=== PATIENT | male | born 1940 | race Caucasian/White ===

== ENCOUNTER → 2020-10-07 10:02 | Outpatient (BNVA) | payer OTHER, SELFPAY | PROVIDERS: Family Provider Emergency Medicine Emergency Medical Services; PCP Emergency Medicine Emergency Medical Services; Referring Provider Emergency Medicine Emergency Medical Services; Visit Provider Nurse Practitioner | DX: M79.641 Pain in right hand (principal); M79.642 Pain in left hand; R20.2 Paresthesia of skin; F17.200 Nicotine dependence, unspecified, uncomplicated | CPT/HCPCS: 99204 ==

== ENCOUNTER 2020-10-08 09:54 | Outpatient (CLI) | payer OTHER, SELFPAY ==
[2020-10-08 11:05] LABS: Folate Level 18.9 ng/mL (4.5-32.2)
[2020-10-08 11:09] LABS: C Reactive Protein 0.8 mg/L (0.0-4.9); Thyroid Stimulating Hormone 1.62 uIU/mL (0.27-4.20); Vitamin B12 593 pg/mL (232-1245)
[2020-10-08 11:13] LABS: Erythrocyte Sedimentation Rate 10 mm/hr (0-10)
[2020-10-11 23:52] LABS: Methylmalonic Acid 229 nmol/L (87-318)
== END 2020-10-08 09:55 | disposition home or self-care (01) ==
PROVIDERS: PCP Emergency Medicine Emergency Medical Services; Visit Provider Nurse Practitioner
DX: G62.9 Polyneuropathy, unspecified (principal)
CPT/HCPCS: 36415; 82607; 82746; 83921; 84260; 84443; 85651; 86140; 86431

== ENCOUNTER → 2020-11-04 12:29 | Outpatient (BNVA) | payer OTHER, SELFPAY | PROVIDERS: PCP Emergency Medicine Emergency Medical Services; Referring Provider Nurse Practitioner; Visit Provider Specialist | DX: G56.03 Carpal tunnel syndrome, bilateral upper limbs (principal); G62.89 Other specified polyneuropathies; F17.200 Nicotine dependence, unspecified, uncomplicated | CPT/HCPCS: 95910 ==

== ENCOUNTER → 2020-12-11 09:45 | Outpatient (BNVA) | payer OTHER, SELFPAY | PROVIDERS: PCP Emergency Medicine Emergency Medical Services; Referring Provider Nurse Practitioner; Visit Provider Orthopaedic Surgery | DX: G56.03 Carpal tunnel syndrome, bilateral upper limbs (principal) | CPT/HCPCS: 73130 ==

== ENCOUNTER → 2020-12-12 13:46 | Outpatient (BNVA) | payer OTHER, SELFPAY | PROVIDERS: PCP Emergency Medicine Emergency Medical Services; Visit Provider Orthopaedic Surgery | DX: Z01.812 Encounter for preprocedural laboratory examination (principal); Z20.822 Contact with and (suspected) exposure to COVID-19 | CPT/HCPCS: 87635 ==

== ENCOUNTER 2020-12-19 10:36 | Day surgery (SDC) | payer OTHER, SELFPAY ==
[2020-12-18 14:52] VITALS: BMI 24.0
[2020-12-19] VITALS (11 sets, daily range): BP systolic 90–165; BP diastolic 44–112; PULSE 59–94; RESP 15–25; TEMP 36.2–36.5; O2SAT 94–98
[2020-12-19] MEDS: sodium chloride 0.9% 1,000 ML 30 ML IV (11:49)
--- NOTE | 2020-12-19 12:49 | P.ANESASSM_ITS ---
Pre-Anesthetic Assessment Pre-Anesthetic Assessment: Height/Weight: Height 1.83 m Weight 80.286 kg Temp Pulse Resp BP Pulse Ox 97.6 F 59 L 17 159/68 95 12/19/20 11:30 12/19/20 11:30 12/19/20 11:30 12/19/20 11:30 12/19/20 11:30 Preop Diagnosis: Carpal tunnel syndrome Left wrist Proposed Procedure: Operation Date: 12/19/20 12:30 Proposed Procedures p Carpal Tunnel Release 79157 G56.00(Left) - Antony Real MD Was Beta Rodney taken within 24 hours: Yes Was Clonidine taken within 24 hours: N/A Last intake: Intake Last Liquid Date 12/18/20 Last Liquid Time 09:00 Last Solid Date 12/18/20 Last Solid Time 17:30 Social: Social History: No alcohol and No tobacco Exam: Pre-Anes Outpt Exam: alert, oriented x 3 and clear to auscultation bi laterally Airway: Submandibular: WNL Cervical ROM: WNL MP: 2 Pulmonary: Pulmonary: None reported CV/HEM: CV/HEM: HTN : : None reported Hepatic: Hepatic: None reported GI: GI: None reported Metabolic: Metabolic: Hyperlipidemia Musc/skel: Musc/skel: None reported Neuropsych: Neuropsych: None reported Anesthetic Plan: ASA status: 2 Anesthesia: Regional (specify below) Other: Marianne block Risk of > 500 ml blood loss (7ml/kg in children): No Meds/Allergies Current Medications: Current Medications Generic Name Dose Route Start Last Admin Trade Name Freq PRN Reason Stop Dose Admin Sodium Chloride 1,000 mls @ 30 ml s/hr 12/19/20 11:30 12/19/20 11:49 Sodium Chloride 0.9% IV 12/20/20 11:29 30 mls/hr .Q24H COLLIN Administration PFSH Anesthesia PFSH: Medical History Hyperlipidemia Neuropathy Social History Alcohol intake: former History of recent travel: No Data Anesthesia Cardiac Studies: No Data to Display
--- NOTE | 2020-12-19 13:35 | W.PM.OPSUD ---
Surgery/Procedure H&P Update DATE OF PROCEDURE: December 19, 2020 DATE H&P PERFORMED: 12/11/20 H&P UPDATE INFORMATION: I have reviewed H&P completed within last 30 days and I have examined patient prior to procedure PREOP DIAGNOSIS: Carpal tunnel syndrome Left wrist PLANNED PROCEDURE: Operation Date: 12/19/20 12:30 Proposed Procedures p Carpal Tunnel Release [id number] G56.00(Left) - Antony Real MD
--- NOTE | 2020-12-19 13:36 | P.OP_ITS ---
Operative Report Date of procedure: December 19, 2020 Pre-op Diagnosis: Carpal tunnel syndrome Left wrist Post-op diagnosis: same Post-op Findings: Same Procedure Done: Left carpal tunnel release Pathology: none sent Surgeon: Antony Real Anesthesia: Nerve Block ([place] block) Estimated blood loss (mL): 0 Tourniquet time (min): 20 Complications: No masses or space-occupying lesions were seen within the carpal tunnel Condition: stable Disposition: PACU Procedure: Patient was taken to the operating room and anesthesia provided by the anesthesia service. She was prepped and draped with the arm exposed. A timeout was performed. A 3 cm long incision was made in line with the fourth ray from the distal edge of the carpal tunnel extending proximally. The subcutaneous fat and palmar fascia was divided with a scalpel blade. Under loupe magnification the ulnar neurovascular bundle was identified distally. A hemostat could be passed under the transverse carpal ligament allowing the distal 25% to be divided. A slotted guide was then passed beneath the transverse carpal ligament and the middle 50% divided. Blunt scissors were then passed over the guide freeing the proximal ligament. The tourniquet was deflated. Hemostasis provided with electrocautery. Wound edges were infiltrated with 10 cc of a half percent Marcaine solution. Skin edges were reapproximated with 3-0 Prolene. Sterile dressings were applied. The patient was taken to the recovery room in stable condition
== END 2020-12-19 15:05 | disposition home or self-care (01) ==
PROVIDERS: PCP Emergency Medicine Emergency Medical Services; Visit Provider Orthopaedic Surgery
PROC: (CPT 64721; principal; 2020-12-19 12:20)
DX: R20.0 Anesthesia of skin (principal); G56.02 Carpal tunnel syndrome, left upper limb; G62.9 Polyneuropathy, unspecified; M79.642 Pain in left hand
CPT/HCPCS: 64721; 96365; J0690; J2704; J3490; J7030

== ENCOUNTER → 2020-12-26 14:50 | Outpatient (BNVA) | payer OTHER, SELFPAY | PROVIDERS: PCP Emergency Medicine Emergency Medical Services; Visit Provider Orthopaedic Surgery | DX: Z20.822 Contact with and (suspected) exposure to COVID-19 (principal); Z01.812 Encounter for preprocedural laboratory examination | CPT/HCPCS: 87635 ==

== ENCOUNTER 2021-01-02 06:27 | Day surgery (SDC) | payer OTHER, SELFPAY ==
[2021-01-01 09:04] VITALS: BMI 24.1
[2021-01-02] VITALS (7 sets, daily range): BP systolic 113–122; BP diastolic 66–82; PULSE 64–81; RESP 18–26; TEMP 36.4–36.6; O2SAT 94–99
--- NOTE | 2021-01-02 07:02 | W.PM.OPSUD ---
Surgery/Procedure H&P Update DATE OF PROCEDURE: January 02, 2021 DATE H&P PERFORMED: 12/11/20 H&P UPDATE INFORMATION: I have reviewed H&P completed within last 30 days PREOP DIAGNOSIS: Carpal tunnel syndrome right wrist PLANNED PROCEDURE: Operation Date: 01/02/21 08:10 Proposed Procedures p Carpal Tunnel Release [id number] G56.00(Right) - Antony Real MD
[2021-01-02] MEDS: sodium chloride 0.9% 1,000 ML 30 ML IV (07:17)
--- NOTE | 2021-01-02 07:27 | ANES.PREANE2 ---
Pre-Anesthetic Assessment Pre-Anesthetic Assessment: Height/Weight: Height 1.83 m Weight 80.739 kg Temp Pulse Resp BP Pulse Ox 97.9 F 81 18 116/66 94 01/02/21 06:45 01/02/21 06:45 01/02/21 06:45 01/02/21 06:45 01/02/21 06:45 Preop Diagnosis: Carpal tunnel syndrome right wrist Proposed Procedure: Operation Date: 01/02/21 08:10 Proposed Procedures p Carpal Tunnel Release [id number] G56.00(Right) - Antony Real MD Was Beta Rodney taken within 24 hours: Yes Was Clonidine taken within 24 hours: N/A Last intake: Intake Last Liquid Date 01/01/21 Last Liquid Time 21:00 Last Solid Date 01/01/21 Last Solid Time 21:00 Social: Social History: Tobacco and No alcohol Exam: Pre-Anes Outpt Exam: alert, oriented x 3 and regular rate & rhythm Airway: Submandibular: WNL Cervical ROM: WNL MP: 2 Dentition: False Pulmonary: Pulmonary: COPD CV/HEM: CV/HEM: HTN GI: GI: GERD Metabolic: Metabolic: Hyperlipidemia Neuropsych: Neuropsych: Neuropathy Anesthetic Plan: ASA status: 3 Anesthesia: MAC and Regional (specify below) (Maisha amos) Risk of > 500 ml blood loss (7ml/kg in children): No Meds/Allergies Current Medications: Current Medications Generic Name Dose Route Start Last Admin Trade Name Freq PRN Reason Stop Dose Admin Sodium Chloride 1,000 mls @ 30 ml s/hr 01/02/21 06:45 01/02/21 07:17 Sodium Chloride 0.9% IV 01/03/21 06:44 30 mls/hr .Q24H COLLIN Administration PFSH Anesthesia PFSH: Medical History Hyperlipidemia Neuropathy Social History Alcohol intake: former History of recent travel: No Data Anesthesia Cardiac Studies: No Data to Display
--- NOTE | 2021-01-02 08:28 | PM.OP ---
Operative Report Date of procedure: January 02, 2021 Pre-op Diagnosis: Carpal tunnel syndrome right wrist Post-op diagnosis: same Post-op Findings: Same Procedure Done: Right carpal tunnel Pathology: none sent Surgeon: Antony Real Anesthesia: Nerve Block (Maisha block) Tourniquet time (min): 20 Complications: None Condition: stable Disposition: PACU Procedure: Patient was taken to the operating room and anesthesia provided by the anesthesia service. She was prepped and draped with the arm exposed. A timeout was performed. A 3 cm long incision was made in line with the fourth ray from the distal edge of the carpal tunnel extending proximally. The subcutaneous fat and palmar fascia was divided with a scalpel blade. Under loupe magnification the ulnar neurovascular bundle was identified distally. A hemostat could be passed under the transverse carpal ligament allowing the distal 25% to be divided. A slotted guide was then passed beneath the transverse carpal ligament and the middle 50% divided. Blunt scissors were then passed over the guide freeing the proximal ligament. The tourniquet was deflated. Hemostasis provided with electrocautery. Wound edges were infiltrated with 10 cc of a half percent Marcaine solution. Skin edges were reapproximated with 3-0 Prolene. Sterile dressings were applied. The patient was taken to the recovery room in stable condition
--- NOTE | 2021-01-02 09:23 | P.PCN_ITS ---
PACU note PACU note: VSS, Good respiratory effort, report to DAIRY CHEMIST Post-Anesthesia Exam: awake
--- NOTE | 2021-01-02 09:23 | PM.PACU ---
PACU note PACU note: VSS, Good respiratory effort, report to ELL TUTOR Post-Anesthesia Exam: awake
--- NOTE | 2021-01-02 13:40 | ANE.PACU2 ---
Inpatient post-anesthesia follow up: Airway intact: Yes Vital signs: Temperature 97.6 F Pulse Rate 67 Respiratory Rate 18 Blood Pressure 115/82 Pulse Oximetry 98 Oxygen Delivery Me thod Room Air Oxygen Flow Rate Fraction of Inspir ed Oxygen Hydration adequate: Yes Nausea and vomiting: No Pain level: 1 Mental status: Baseline
== END 2021-01-02 10:07 | disposition home or self-care (01) ==
PROVIDERS: PCP Emergency Medicine Emergency Medical Services; Visit Provider Orthopaedic Surgery
PROC: (CPT 64721; principal; 2021-01-02 08:10)
DX: R20.0 Anesthesia of skin (principal); G56.01 Carpal tunnel syndrome, right upper limb
CPT/HCPCS: 64721; J0690; J2704; J3010; J3490; J7030

== ENCOUNTER 2022-02-13 13:42 | Inpatient (IN) | payer OTHER, SELFPAY ==
[2022-02-13] VITALS (46 sets, daily range): BP systolic 105–169; BP diastolic 54–83; PULSE 18–105; RESP 14–24; TEMP 36.5–36.6; O2SAT 94–100; BMI 23.7
--- NOTE | 2022-02-13 13:57 | ECG_ITS ---
[facility] Test Date: 2022-02-13 Pat Name: Meeta Hurst Department: Room: Gender: Male Nurse Ldr: : 1940 Requested By: Jaswant Soriano Order Number: [id number] Monique MD: Polina Oliver M.D. Measurements Intervals [place] Rate: 84 P: 86 NV: 196 QRS: -86 QRSD: 137 T: 68 QT: 389 QTc: 461 Interpretive Statements SINUS RHYTHM WITH OCCASIONAL VENTRICULAR PREMATURE COMPLEXES LEFT AXIS DEVIATION [QRS AXIS < -30] RIGHT BUNDLE BRANCH BLOCK Compared to ECG 12/25/2015 15:22:43 Ventricular premature complex(es) now present Left-axis deviation now present Sinus bradycardia no longer present Left anterior fascicular block no longer present Electronically Signed On 02-13-2022 19:03:35 PLASTER WHITTLER by Polina Oliver M.D. [id number] ciara
--- NOTE | 2022-02-13 13:57 | XR_ITS ---
WS: [id number] Portable AP upright chest, 02/13/2022 Clinical Data: cp Comparison: Portable chest, 12/25/2015 Findings: No nodules, masses or effusions are seen. The heart is normal. The pulmonary vascularity is not increased. No pneumonia or pneumothorax is seen. The aortic arch and descending thoracic aorta s how tortuosity. There are monitor leads on the chest wall. XR/XR chest 1V portable [id number] Impression: Atherosclerosis.
--- NOTE | 2022-02-13 14:01 | W.ED.CHESTPA ---
HPI - Chest Pain General: Chief Complaint: Chest Pain Stated Complaint: vtach Time Seen by Provider: 02/13/22 13:43 History of Present Illness: Patient comes in by EMS after developing chest pain which he describes as midsternal chest pressure that started about an hour prior to arrival. States it started while he was driving. No radiation. Associate with some shortness of breath. When EMS picked the patient up his EKG was concerning for a wide-complex tachycardia with a ventricular rate around 176 bpm. He was given 150 mg of amiodarone which converted him to sinus rhythm. Upon arrival here the patient is asymptomatic. He denies any history of previous dysrhythmia. Denies any cold symptoms including no fever, cough, congestion, vomiting, or diarrhea. Associated symptoms: Reports palpitations; Deny abdominal pain, dyspnea, fever(s), nausea or vomiting Review of Systems Const: Denies: fever(s) or body aches Eyes: Denies: change in vision or blurry vision ENMT: Denies: throat pain or odynophagia Card: Reports: chest pain and palpitations Resp: Denies: dyspnea or productive cough GI: Denies: abdominal pain, nausea or vomiting : Denies: flank pain or dysuria Musc: Denies: neck pain or back pain Skin/Breast: Denies: rash or pruritus Neuro: Denies: headache(s) or numbness in extremities Psych: Denies: anxiety or change in appetite Endo: Denies: polyuria or excessive sweating [facility] PFSH: Medical History Hyperlipidemia Neuropathy Social History Alcohol intake: former History of recent travel: No Physical Exam Const: COMMON NORMALS: no acute distress, patient oriented x3, healthy appearing and alert HENMT: COMMON NORMALS: normocephalic and atraumatic HEAD & SCALP: normocephalic and atraumatic Eye: COMMON NORMALS: Equal, round and reactive pupils present and EOMs intact bilaterally PUPIL: Yes Equal, round and reactive pupils present Neck/C-Spine: COMMON NORMALS: full ROM and supple Resp: COMMON NORMALS: normal respiratory effort, No retractions and No use of accessory muscles Cardio: COMMON NORMALS: regular rate and regular rhythm RATE: regular rate RHYTHM: regular rhythm GI: COMMON NORMALS: Normal to inspection, nondistended, normoactive bowel sounds present, Soft to palpation and non-tender PALPATION: Yes Soft to palpation Back/Pelvis: COMMON NORMALS: thoracic and lumbar spine normal to inspection and no thoracic nor lumbar tenderness Extremity: COMMON NORMALS: normal to inspection and full ROM Neuro: COMMON NORMALS: patient oriented x3 SENSORIUM/ORIENTATION: Yes alert Psych: COMMON NORMALS: mental status grossly normal and cooperative Skin: COMMON NORMALS: no rashes or lesions noted and no wounds GENERAL SKIN EXAM: no rashes or lesions noted Course Vital Signs: Vital signs: Vital Signs Temperature 98 F 02/13/22 13:53 Pulse Rate 72 02/13/22 14:45 Respiratory Rate 15 02/13/22 14:45 Blood Pressure 105/79 02/13/22 14:45 Pulse Oximetry 98 02/13/22 14:45 Oxygen Delivery Me thod 02/13/22 13:53 MDM - Chest Pain Medical Decision Making Patient comes in by EMS after developing chest pain which he describes as midsternal chest pressure that started about an hour prior to arrival. States it started while he was driving. No radiation. Associate with some shortness of breath. When EMS picked the patient up his EKG was concerning for a wide-complex tachycardia with a ventricular rate around 176 bpm. He was given 150 mg of amiodarone which converted him to sinus rhythm. Upon arrival here the patient is asymptomatic. He denies any history of previous dysrhythmia. Denies any cold symptoms including no fever, cough, congestion, vomiting, or diarrhea. Physical exam is unremarkable. Will check labs, EKG, continue amiodarone, and reassess. On reassessment I talked to the patient about the test results. I discussed the case with the hospitalist, and we will admit for further work-up and treatment. Lab Data 02/13/22 14:02 02/13/22 14:02 Radiology Impressions Chest X-Ray 02/13/22 13:57 Impression: Atherosclerosis. Laboratory Results WBC 4.8 10^3/uL (4.0-10.0) 02/13/22 14:02 RBC 4.86 10^6/uL (4.1-5.3) 02/13/22 14:02 Hgb 15.0 g/dL (11.7-16.6) 02/13/22 14:02 Hct 46.5 % (42.0-52.0) 02/13/22 14:02 MCV 95.7 fl (80-94) H 02/13/22 14:02 MCH 30.9 pg (28.0-34.0) 02/13/22 14:02 MCHC 32.3 g/dL (30.0-36.0) 02/13/22 14:02 RDW 13.0 % (12.1-15.1) 02/13/22 14:02 Plt Count 183 10^3/cmm (130-400) 02/13/22 14:02 MPV 10.0 fL (7.4-10.4) 02/13/22 14:02 Neut % (Auto) 47.7 % 02/13/22 14:02 Lymph % (Auto) 36.3 % 02/13/22 14:02 Tompkins % (Auto) 10.6 % 02/13/22 14:02 Eos % (Auto) 4.4 % 02/13/22 14:02 Baso % (Auto) 0.8 % 02/13/22 14:02 Neut # (Auto) 2.29 10^3/uL (1.8-7.7) 02/13/22 14:02 Lymph # (Auto) 1.7 10^3/uL (0.8-4.8) 02/13/22 14:02 Tompkins # (Auto) 0.5 10^3/uL (0.2-0.9) 02/13/22 14:02 Eos # (Auto) 0.2 10^3/uL (0.0-0.8) 02/13/22 14:02 Baso # (Auto) 0.0 10^3/uL (0.0-0.1) 02/13/22 14:02 Nucleated RBC % (auto) 0 % 02/13/22 14:02 Nucleated RBCs # 0.0 /100WBC 02/13/22 14:02 Sodium 135 mmol/L (136-145) L 02/13/22 14:02 Potassium 4.3 mmol/L (3.5-5.1) 02/13/22 14:02 Chloride 101 mmol/L (98-107) 02/13/22 14:02 Carbon Dioxide 22 mmol/L (22-29) 02/13/22 14:02 Anion Gap 16.3 (5-19) 02/13/22 14:02 BUN 12 mg/dL (8-23) 02/13/22 14:02 Creatinine 1.0 mg/dL (0.7-1.2) 02/13/22 14:02 GFR Calculation Not Reportable 02/13/22 14:02 Glucose 107 mg/dL (65-115) 02/13/22 14:02 Calculated Osmolality 280 mOsm/kg (285-295) L 02/13/22 14:02 Calcium 8.9 mg/dL (8.5-10.5) 02/13/22 14:02 Total Bilirubin 0.7 mg/dL (0.15-1.2) 02/13/22 14:02 AST 16 U/L (0-40) 02/13/22 14:02 ALT 11 U/L (0-41) 02/13/22 14:02 Alkaline Phosphatase 57 U/L (40-130) 02/13/22 14:02 Troponin T Baseline 25 ng/L (0-15) H 02/13/22 14:02 Total Protein 6.6 g/dL (6.6-8.7) 02/13/22 14:02 Albumin 4.3 g/dL (3.5-5.2) 02/13/22 14:02 Globulin 2.3 g/dL (1.3-4.6) 02/13/22 14:02 Discharge Plan Discharge Patient Disposition: Admitted As Inpatient Clinical Impression: Wide-complex tachycardia Condition: Stable Coding Level of Care Code ED Svp Digital [employer] Sales for Chg Fwd Exam Comprehensive
[2022-02-13 14:10] LABS: Basophils % 0.8 %; Eosinophils # 0.2 10^3/uL (0.0-0.8); Eosinophils % 4.4 %; Hematocrit 46.5 % (42.0-52.0); Lymphocytes # 1.7 10^3/uL (0.8-4.8); Lymphocytes % 36.3 %; Mean Corpuscular HGB Conc 32.3 g/dL (30.0-36.0); Mean Corpuscular Hemoglobin 30.9 pg (28.0-34.0); Mean Corpuscular Volume 95.7 fl (80-94); Monocytes # 0.5 10^3/uL (0.2-0.9); Monocytes % 10.6 %; Neutrophils # 2.29 10^3/uL (1.8-7.7); Neutrophils % 47.7 %; Nucleated Red Blood Cells % 0 %; Platelet Count 183 10^3/cmm (130-400); Red Blood Count 4.86 10^6/uL (4.1-5.3); White Blood Count 4.8 10^3/uL (4.0-10.0)
[2022-02-13] MEDS: sodium chloride 0.9% 1,000 ML 999 ML IV (14:20)
[2022-02-13 14:30] LABS: Alanine Aminotransferase 11 U/L (0-41); Albumin Level 4.3 g/dL (3.5-5.2); Alkaline Phosphatase 57 U/L (40-130); Anion Gap 16.3 (5-19); Aspartate Amino Transferase 16 U/L (0-40); Blood Urea Nitrogen 12 mg/dL (8-23); Calcium 8.9 mg/dL (8.5-10.5); Carbon Dioxide 22 mmol/L (22-29); Chloride 101 mmol/L (98-107); Globulin 2.3 g/dL (1.3-4.6); Glucose 107 mg/dL (65-115); Osmolality Calculated 280 mOsm/kg (285-295); Potassium 4.3 mmol/L (3.5-5.1); Sodium 135 mmol/L (136-145); Total Bilirubin 0.7 mg/dL (0.15-1.2); Total Protein 6.6 g/dL (6.6-8.7)
[2022-02-13 14:31] LABS: Troponin(5th) Baseline 25 ng/L (0-15)
--- NOTE | 2022-02-13 15:57 | ECG_ITS ---
[facility] Test Date: 2022-02-13 Pat Name: Meeta Hurst Department: Room: 106 Gender: Male Adjunct Communications Faculty Member: : 1940 Requested By: Jaswant Soriano Order Number: [id number] Monique MD: Polina Oliver M.D. Measurements Intervals [place] Rate: 75 P: 83 AK: 200 QRS: 269 QRSD: 154 T: 68 QT: 407 QTc: 455 Interpretive Statements SINUS RHYTHM RIGHT AXIS DEVIATION [QRS AXIS > 100] RIGHT BUNDLE BRANCH BLOCK [120+ ms QRS DURATION, UPRIGHT V1, 40+ ms S IN I/aVL/V4/V5/V6] Compared to ECG 02/13/2022 13:51:34 Right-axis deviation now present Ventricular premature complex(es) no longer present Left-axis deviation no longer present Electronically Signed On 02-13-2022 20:29:28 PIPE FINISHER by Polina Oliver M.D. [id number]
[2022-02-13] MEDS: enoxaparin 80 mg/0.8 mL Syringe SUBCUT (17:30)
--- NOTE | 2022-02-13 17:33 | P.HP_ITS ---
Providers/Chief Complaint Admitting Physician: Nikkie Castillo MD Primary Care Provider: Mendoza Forman DO Chief Complaint: vtach History of Present Illness Meeta Hurst is a 81 year old male with a past medical history of dyslipidemia. He was driving today when he suddenly started to feel a sudden pressure in the middle of his chest as if a brick is laying on his chest. Also had some palpitations. Initially he kept driving, however the sensation record after 10 to 15 minutes [facility] As [facility] as he entered the clinic he states that he passed out and fell to the floor. EMS was called in, he was noted to be in wide-complex tachycardia at 176 bpm. He did not receive defibrillation or cardioversion. He he was given amiodarone and thereafter turned into sinus rhythm and was brought into the emergency room. Here he is running on an amiodarone infusion at the time of my assessment. He is currently chest pain-free. States that he has had similar episodes on and off over the last 6 months, however he had continued his activity and the symptoms stopped. He has not noticed any correlation with exertion or rest. Denies any recent change in his medications. He states that he used to be hypertensive, however was then taken off his blood pressure medications as blood pressure had been good for a while. He does not have any past history of CAD. No history of valvular abnormalities. He does not drink excessive amount of caffeine and energy drinks. Per his family was at bedside they state that he was short of breath during this episode he was having a tough time breathing, he did not have any associated diaphoresis. Pain was not radiating anywhere. Review of Systems General: Reports: 10 or more systems reviewed and unremarkable except in HPI and below Const: Denies: fever(s), chills or body aches Eyes: Denies: change in vision, blurry vision or photophobia ENMT: Reports: hoarseness; Denies: throat pain, enlarged tonsils, odynophagia or nasal congestion Card: Denies: chest pain, palpitations, irregular heart rhythm, edema, swelling of feet/ankles, lightheadedness, pre-syncope, dyspnea on exertion or orthopnea Resp: Denies: dyspnea, productive cough, non-productive cough, wheezing, s tridor, pain on inspiration, change in phlegm color, hemoptysis or chest congestion GI: Denies: abdominal pain, nausea, vomiting, hematemesis, coffee ground emesis, dysphagia, heartburn, diarrhea, constipation, GI cramping, change in stool character, hematochezia or melena : Denies: flank pain, dysuria, urinary frequency, urinary urgency, urinary hesitancy or hematuria Musc: Denies: neck pain, back pain, extremity pain, joint swelling, joint warmth or deformity Neuro: Denies: headache(s), numbness in extremities, weakness in extremities, sensory changes, difficulty walking, frequent falls, dizziness, vertigo, behavioral changes, Slurred speech present or seizure-like activity Psych: Denies: anxiety, depression, suicidal ideation or homicidal ideation Endo: Denies: polyuria, polydipsia, tired all the time, cold intolerance or hot flashes Travis/Lymph: Denies: easy bruising or easy bleeding Medications/Allergies Home Medications Medication Instructions Recorded Confirmed Last Taken Type aspirin 81 mg tablet,delayed 81 mg PO DAILY 10/07/20 02/13/22 02/13/22 History release cholecalciferol (vitamin D3) 25 25 mcg PO DAILY 10/07/20 02/13/22 02/13/22 History mcg (1,000 unit) capsule famotidine 20 mg tablet 20 mg PO BID 10/07/20 02/13/22 02/13/22 History simvastatin 80 mg tablet 80 mg PO QPM 10/07/20 02/13/22 02/12/22 History trazodone 50 mg tablet 25 mg PO BEDTIME 10/07/20 02/13/22 02/12/22 History Allergies Allergy/AdvReac Type Severity Reaction Status Date / Time No Known Allergies Allergy Verified 02/13/22 14:16 PFSH Acute PFSH: Medical History Hyperlipidemia Neuropathy Social History Alcohol intake: former History of recent travel: No Vitals/I&O/Wt Last Vital Signs Temp 98 F 02/13/22 13:53 Pulse 79 02/13/22 16:57 Resp 22 H 02/13/22 16:10 BP 122/83 02/13/22 17:05 Pulse Ox 98 02/13/22 17:05 O2 Del Method 02/13/22 16:57 02/13/22 02/13/22 02/13/22 06:59 14:59 22:59 Intake Total 1000 / 1000 Balance 1000 / 1000 Weight last 48 hrs Weight 79.379 kg Physical Exam Narrative: General: No acute distress, AO x3 HEENT: PERRLA, pupils bilaterally equal and reactive, pallors not present Chest: Normal vesicular breath sounds, no added sounds, equal good air entry bilaterally CVS: S1-S2 regular, no murmurs, no tachycardia, no gallops, no rubs Abdomen: Soft, nontender, no organomegaly, bowel sounds present Neuro: No focal deficits, no facial deformity, AO x3, power 5/5 in all limbs Extremities: No clubbing edema or cyanosis Data 02/13/22 14:02 02/13/22 14:02 A&P Assessment and plan (1) Wide-complex tachycardia: (2) Chest pain: Plan Patient presenting today with chest pain, palpitations, found to have wide- complex tachycardia by EMS. Received amiodarone following which he converted into sinus rhythm and is continued on a drip thereafter. Has some on and off episodes of chest pain also going back 6 months, concern for anginal type chest pain. Baseline rhythm currently is sinus with right bundle branch block. Baseline troponin is slightly elevated at 25, pending 2-hour and 6-hour trend. Due to concern for possible NSTEMI we will go ahead and administer full dose Lovenox x1, aspirin 325 mg p.o. once. Start aspirin 81 mg p.o. daily, atorvastatin 40 mg p.o. daily. Cardiology consult for new onset wide complex arrhythmia echocardiography ordered Attestations Medical Necessity Statement*: Anticipate greater than 2 midnight admission for above care Coding Level of Care Code Acute Gas Distribution Plant Operator for [facility] Fwd Diagnoses Wide-complex tachycardia R00.0 Chest pain R07.9
[2022-02-13] MEDS: aspirin 81 mg Chew Tablet 324 MG PO (18:06)
[2022-02-13] MEDS: famotidine 20 mg Tablet PO (18:08)
--- NOTE | 2022-02-13 18:27 | P.CONIM_ITS ---
Providers/Reason For Consult Consulting Physician/Specialty*: Vanessa Mc MD/cardiology Reason for Consult*: Patient with syncope/wide-complex tachycardia Requesting Physician: Dr. Castillo Attending Physician: Nikkie Castillo MD Primary Care Provider: Mendoza Forman DO History of Present Illness History of Present Illness Meeta Hurst is a 81 year old male with a history of dyslipidemia, he is presenting with an episode of near syncope. He was found to have wide-complex tachycardia on the monitor. Cardiology consult is requested for further cardiac evaluation recommendations. This patient is known to have dyslipidemia and is taking a statin drug. Apparently he was driving home after buying a sandwich for lunch. On the way he started having tight feeling in the chest. He pulled over and waited for a while. The symptoms might have lasted for few seconds and then gradually subsided. So he started driving again. Few minutes later, he had another episode of chest tightness. At this time, he was near to the [facility] in [facility]. So he stopped by the clinic. As he was getting into the clinic he collapsed to the floor. He never lost consciousness. He was found to have wide-complex tachycardia by EMS. He was started on IV amiodarone. By the time he came to the emergency room, the pain was gone. He was back into sinus rhythm. Currently he has no chest pain. The whole episode of chest pain might have lasted for an hour or so. According the patient, he has been having similar symptoms off and on for the last couple of years. He might have had 4 or 5 episodes of similar pains within the last 1 year. No definite precipitating factors. Usually the symptoms last for few seconds to few minutes and usually goes away by taking a deep breath. He never had the symptoms lasting that long. He never had any syncopal or near syncopal episodes. He has no history for any hypertension, diabetes, CVA or peripheral artery disease. He smokes a pack a day for the last more than 70 years. No alcohol abuse or any other substance abuse. No significant family history for atherosclerotic heart diseas. Review of Systems Narrative: CONSTITUTIONAL: No fever or chills. EYES: No blurring of vision or other visual disturbances lately. ENT: No hoarseness of voice, auditory disturbances or sore throat. CARDIOVASCULAR: As mentioned above. RESPIRATORY: No significant cough. GASTROINTESTINAL: No hematemesis or melena. GENITOURINARY: No dysuria or hematuria. INTEGUMENTARY: No skin rashes or history of skin cancer. NEURO: No transient ischemic attacks or amaurosis. PSYCHIATRIC: No history of psychosis or major depression. HEMATOLOGIC: No bleeding disorders or significant anemia. ENDOCRINE: No history of polyuria or polydipsia. MUSCULOSKELETAL: No recent joint pain or swelling. ALLERGY/IMMUNOLOGY: As mentioned above. Medications/Allergies Home Medications Medication Instructions Recorded Confirmed Last Taken Type aspirin 81 mg tablet,delayed 81 mg PO DAILY 10/07/20 02/13/22 02/13/22 History release cholecalciferol (vitamin D3) 25 25 mcg PO DAILY 10/07/20 02/13/22 02/13/22 History mcg (1,000 unit) capsule famotidine 20 mg tablet 20 mg PO BID 10/07/20 02/13/22 02/13/22 History simvastatin 80 mg tablet 80 mg PO QPM 10/07/20 02/13/22 02/12/22 History trazodone 50 mg tablet 25 mg PO BEDTIME 10/07/20 02/13/22 02/12/22 History Allergies Allergy/AdvReac Type Severity Reaction Status Date / Time No Known Allergies Allergy Verified 02/13/22 14:16 Current Medications Generic Name Dose Route Start Last Admin Trade Name Dionicioq PRN Reason Stop Dose Admin Famotidine 20 mg 02/13/22 18:00 02/13/22 18:08 Famotidine 20 Mg Tablet PO 20 mg BID COLLIN Administration Amiodarone HCl 900 mg/ 518 mls @ 17.267 mls/hr 02/13/22 14:00 02/13/22 14:18 Dextrose/ IV Miscellaneous IV 0.5 mg/min Supplies CONT COLLIN 17.27 mls/hr Administration 0.5 MG/MIN PFSH Acute PFSH: Medical History (Updated 02/13/22 @ 19:36 by Jos Mc MD) Hyperlipidemia Neuropathy Social History Alcohol intake: former History of recent travel: No Vitals/I&O/Wt Last Vital Signs Temp 98 F 02/13/22 13:53 Pulse 78 02/13/22 17:25 Resp 17 02/13/22 17:25 BP 159/79 02/13/22 17:55 Pulse Ox 98 02/13/22 17:55 O2 Del Method 02/13/22 17:35 02/13/22 02/13/22 02/13/22 06:59 14:59 22:59 Intake Total 1000 / 1000 Balance 1000 / 1000 Weight last 48 hrs Weight 175 lb Weight 175 lb Physical Exam Narrative: GENERAL: The patient is alert and oriented times three. Not in any acute distress. HEENT: No significant pallor, icterus or lymphadenopathy.Oral cavity: There are no mucous membrane lesions. NECK: Trachea appears to be central. No masses noted. No JVD or thyromegaly appreciated. RESPIRATORY: Chest is symmetrical. No intercostals muscle retraction or any accessory muscle activation. There is no chest wall tenderness. Breath sounds are heard bilaterally. No rales or rhonchi heard. No evidence of any consolidation. BREASTS: Deferred. HEART: The heart sounds are normal. No S3 or S4. Short systolic murmur in the left sternal border.. No pericardial rub ABDOMEN: No vessel pulsations or distention. No tenderness. No organomegaly appreciated. Bowel sounds are normally heard. : Deferred. RECTAL: Deferred. LYMPHATIC: No lymphadenopathy noted in the neck. EXTREMITIES: No edema or cyanosis. No clubbing. Peripheral pulses are palpable but somewhat weak. MUSCULOSKELETAL: No acute joint deformities or swelling SKIN: There are no significant rashes or ecchymosis NEUROPSYCHIATRIC: The patient is alert and oriented x3. Appears to be in a good mood. No tremors or rigidity noted. Data 02/13/22 14:02 02/13/22 14:02 Micro: Laboratory Last Values WBC 4.8 10^3/uL (4.0-10.0) 02/13/22 14:02 RBC 4.86 10^6/uL (4.1-5.3) 02/13/22 14:02 Hgb 15.0 g/dL (11.7-16.6) 02/13/22 14:02 Hct 46.5 % (42.0-52.0) 02/13/22 14:02 MCV 95.7 fl (80-94) H 02/13/22 14:02 MCH 30.9 pg (28.0-34.0) 02/13/22 14:02 MCHC 32.3 g/dL (30.0-36.0) 02/13/22 14:02 RDW 13.0 % (12.1-15.1) 02/13/22 14:02 Plt Count 183 10^3/cmm (130-400) 02/13/22 14:02 MPV 10.0 fL (7.4-10.4) 02/13/22 14:02 Neut % (Auto) 47.7 % 02/13/22 14:02 Lymph % (Auto) 36.3 % 02/13/22 14:02 [place] % (Auto) 10.6 % 02/13/22 14:02 Eos % (Auto) 4.4 % 02/13/22 14:02 Baso % (Auto) 0.8 % 02/13/22 14:02 Neut # (Auto) 2.29 10^3/uL (1.8-7.7) 02/13/22 14:02 Lymph # (Auto) 1.7 10^3/uL (0.8-4.8) 02/13/22 14:02 [place] # (Auto) 0.5 10^3/uL (0.2-0.9) 02/13/22 14:02 Eos # (Auto) 0.2 10^3/uL (0.0-0.8) 02/13/22 14:02 Baso # (Auto) 0.0 10^3/uL (0.0-0.1) 02/13/22 14:02 Nucleated RBC % (auto) 0 % 02/13/22 14:02 Nucleated RBCs # 0.0 /100WBC 02/13/22 14:02 Sodium 135 mmol/L (136-145) L 02/13/22 14:02 Potassium 4.3 mmol/L (3.5-5.1) 02/13/22 14:02 Chloride 101 mmol/L (98-107) 02/13/22 14:02 Carbon Dioxide 22 mmol/L (22-29) 02/13/22 14:02 Anion Gap 16.3 (5-19) 02/13/22 14:02 BUN 12 mg/dL (8-23) 02/13/22 14:02 Creatinine 1.0 mg/dL (0.7-1.2) 02/13/22 14:02 GFR Calculation Not Reportable 02/13/22 14:02 Glucose 107 mg/dL (65-115) 02/13/22 14:02 Calculated Osmolality 280 mOsm/kg (285-295) L 02/13/22 14:02 Calcium 8.9 mg/dL (8.5-10.5) 02/13/22 14:02 Total Bilirubin 0.7 mg/dL (0.15-1.2) 02/13/22 14:02 AST 16 U/L (0-40) 02/13/22 14:02 ALT 11 U/L (0-41) 02/13/22 14:02 Alkaline Phosphatase 57 U/L (40-130) 02/13/22 14:02 Troponin T Baseline 25 ng/L (0-15) H 02/13/22 14:02 Total Protein 6.6 g/dL (6.6-8.7) 02/13/22 14:02 Albumin 4.3 g/dL (3.5-5.2) 02/13/22 14:02 Globulin 2.3 g/dL (1.3-4.6) 02/13/22 14:02 EKG 1: My Interpretation: Normal sinus rhythm with right bundle branch block pattern. Some nonspecific T wave changes EKG 2: My Interpretation: Wide-complex tachycardia with a right bundle branch block morphology. Possible SVT. [place] similar to the axis with normal sinus rhythm A&P Assessment and plan (1) Wide-complex tachycardia: The rhythm appears to be in SVT. (2) Chest pain: Patient chest pain is somewhat vague. It is possible that the pain is related to the arrhythmia. Possibility of him having underlying coronary ischemia causing the symptom also is a consideration. This needs to be further evaluated. An echocardiogram would be helpful to evaluate LV function and rule out any other pathology. (3) Elevated blood pressure reading: Patient currently has stage II hypertension. This need to be treated. I may start him on metoprolol 25 mg p.o. twice daily. (4) Elevated troponin: This could be related to a type II OR. Serial enzymes are pending. (5) Near syncope: Most likely from the tachyarrhythmia. (6) Hyperlipidemia: Patient has longstanding history of dyslipidemia. May continue on the current medications. Plan The other problems are History of GERD Neuropathy We will review the echocardiogram Start him on metoprolol 25 mg p.o. twice daily. Need to be closely monitored on telemetry. Serial cardiac enzymes and EKGs We will keep him n.p.o. after midnight. Based on the clinical progress and the results of the above, further recommendations will be made. Thank you for the opportunity to evaluate this patient and make these recommendations Coding Level of Care Code Acute Customer Account Technician for Chg Fwd History Expanded Problem Focused Exam Detailed Diagnoses Wide-complex tachycardia R00.0 Chest pain R07.9 Elevated blood pressure reading R03.0 Elevated troponin R77.8 Near syncope R55 Hyperlipidemia E78.5
[2022-02-13 20:16] LABS: Troponin 5 2HR 47.27 ng/L (0-15)
[2022-02-13] MEDS: nitroglycerin 1 gm/inch oint Pkt 0.5 INCH TOPICAL (20:18)
[2022-02-13 20:43] LABS: Troponin 5 2HR Delta 22.27 ABS# (0-10)
[2022-02-13 21:04] LABS: Troponin 5 6HR 44.37 ng/L (0-15)
[2022-02-13 21:11] LABS: Thyroid Stimulating Hormone 1.17 uIU/mL (0.27-4.20)
[2022-02-13] MEDS: trazodone 50 mg Tablet 25 MG PO (21:18)
[2022-02-13] MEDS: clopidogrel 300 mg Tablet PO (21:18)
[2022-02-13] MEDS: atorvastatin 40 mg Tablet PO (21:18)
[2022-02-13] MEDS: metoprolol tartrate 25 mg Tablet 12.5 MG PO (21:18)
--- NOTE | 2022-02-13 22:02 | ECG_ITS ---
[facility] Test Date: 2022-02-13 Pat Name: Meeta Hurst Department: Room: 106 Gender: Male Event Crew Technician: : 1940 Requested By: Jaswant Soriano Order Number: [id number] Monique MD: Jos Mc M.D. Measurements Intervals [place] Rate: 60 P: 79 WI: 204 QRS: -81 QRSD: 144 T: 46 QT: 429 QTc: 430 Interpretive Statements SINUS RHYTHM LEFT AXIS DEVIATION [QRS AXIS < -30] RIGHT BUNDLE BRANCH BLOCK [120+ ms QRS DURATION, UPRIGHT V1, 40+ ms S IN I/aVL/V4/V5/V6] Compared to ECG 02/13/2022 16:38:14 Left-axis deviation now present Right-axis deviation no longer present Electronically Signed On 02-14-2022 15:23:51 GEOSPATIAL IMAGERY INTELLIGENCE ANALYST by Jos Mc M.D. [id number]
[2022-02-13 22:19] LABS: Troponin 5 6HR Delta 19.37 ng/L (0-12)
[2022-02-14] VITALS (57 sets, daily range): BP systolic 95–157; BP diastolic 57–83; PULSE 51–69; RESP 13–28; TEMP 36.3–36.9; O2SAT 94–98
--- NOTE | 2022-02-14 01:48 | ECG_ITS ---
[facility] Test Date: 2022-02-14 Pat Name: Meeta Hurst Department: Room: 106 Gender: Male Imaging Analyst: : 1940 Requested By: Sadi Smith Order Number: [id number] Monique MD: Jos Mc M.D. Measurements Intervals [place] Rate: 54 P: 82 GA: 205 QRS: -83 QRSD: 149 T: 30 QT: 492 QTc: 470 Interpretive Statements SINUS BRADYCARDIA RIGHT BUNDLE BRANCH BLOCK [120+ ms QRS DURATION, UPRIGHT V1, 40+ ms S IN I/aVL/V4/V5/V6] LEFT ANTERIOR FASCICULAR BLOCK [QRS AXIS <= -45, QR IN I, RS IN II] Compared to ECG 02/13/2022 22:02:07 Left anterior fascicular block now present Sinus rhythm no longer present Left-axis deviation no longer present Electronically Signed On 02-14-2022 15:18:30 SUPERVISOR FLOOR ASSEMBLY by Jos Mc M.D. [id number]
--- NOTE | 2022-02-14 01:51 | PC.NURSE ---
Contacted hospitalist on duty regarding patient's HR of 55. Order received for stat MG level BMP, trop. Amiodarone infusion turned off.
[2022-02-14 02:34] LABS: Eosinophils # 0.3 10^3/uL (0.0-0.8); Eosinophils % 6.4 %; Hematocrit 41.1 % (42.0-52.0); Hemoglobin 13.5 g/dL (11.7-16.6); Lymphocytes # 1.3 10^3/uL (0.8-4.8); Lymphocytes % 32.5 %; Mean Corpuscular HGB Conc 32.8 g/dL (30.0-36.0); Mean Corpuscular Hemoglobin 31.6 pg (28.0-34.0); Mean Corpuscular Volume 96.3 fl (80-94); Monocytes # 0.5 10^3/uL (0.2-0.9); Monocytes % 12.8 %; Neutrophils # 1.91 10^3/uL (1.8-7.7); Neutrophils % 47.1 %; Nucleated Red Blood Cells % 0 %; Platelet Count 166 10^3/cmm (130-400); Red Blood Count 4.27 10^6/uL (4.1-5.3); White Blood Count 4.1 10^3/uL (4.0-10.0)
[2022-02-14] MEDS: nitroglycerin 1 gm/inch oint Pkt 0.5 INCH TOPICAL ×2 (02:40→09:09)
[2022-02-14 02:56] LABS: Troponin T (5th) Once 36 ng/L (0-15)
[2022-02-14 02:59] LABS: Alanine Aminotransferase 9 U/L (0-41); Albumin Level 3.6 g/dL (3.5-5.2); Alkaline Phosphatase 48 U/L (40-130); Anion Gap 13.3 (5-19); Aspartate Amino Transferase 14 U/L (0-40); Blood Urea Nitrogen 12 mg/dL (8-23); Calcium 8.4 mg/dL (8.5-10.5); Carbon Dioxide 21 mmol/L (22-29); Chloride 107 mmol/L (98-107); Chol HDL Ratio 3.54 mg/dL (1.0-5.00); Cholesterol 131 mg/dL (0-200); Globulin 1.9 g/dL (1.3-4.6); Glucose 102 mg/dL (65-115); HDL Cholesterol 37 mg/dL (60-100); LDL Cholesterol Calculated 72 mg/dL (50-129); LDL HDL Ratio 1.95 RATIO (0.00-3.22); Magnesium 2.1 mg/dL (1.7-2.3); Osmolality Calculated 284 mOsm/kg (285-295); Potassium 4.3 mmol/L (3.5-5.1); Sodium 137 mmol/L (136-145); Total Bilirubin 0.5 mg/dL (0.15-1.2); Total Protein 5.5 g/dL (6.6-8.7); Triglycerides 112 mg/dL (0-150)
[2022-02-14 03:04] LABS: Estmated Average Glucose 117; Hemoglobin A1C 5.7 % (4.0-6.0)
--- NOTE | 2022-02-14 06:00 | USCV_ITS ---
Meeta Hurst Age: 81 Gender: M : 1940 Exam Date: 02/14/2022 09:12 Ordering Phys: Nikkie Castillo MD Technologist: ANNA [place] [facility] [place]: NSTEMI BP: 115 / 60 HR: Rhythm: Other Technical Quality: Technically difficult study MEASUREMENTS (Male / Female) Normal Values 2D ECHO LV Diastolic Diameter PLAX 3.9 cm 4.2 - 5.9 / 3.9 - 5.3 cm LV Systolic Diameter PLAX 2.7 cm IVS Diastolic Thickness 0.7 cm 0.6 - 1.0 / 0.6 - 0.9 cm IVS Systolic Thickness 0.9 cm LVPW Diastolic Thickness 0.8 cm 0.6 - 1.0 / 0.6 - 0.9 cm LVPW Systolic Thickness 1.2 cm LVOT Diameter 2.1 cm LV Ejection Fraction 2D Teich 56.8 % LV Ejection Fraction MOD 2C 60.9 % LV Ejection Fraction 2C AL 61.7 % LA Diameter 2.4 cm IVC Diameter 1.2 cm M-MODE Aortic Annulus Diameter 2.9 cm LA Ao Ratio MM 1.0 MV E Point Septal Separation 0.4 cm DOPPLER MV Area PHT 3.7 cm squared Mitral E to A Ratio 0.7 MV E' Velocity 34.5 cm/s Mitral E to MV E' Ratio 8.4 Mitral E to LV E' Lateral Ratio 7.7 Mitral E to LV E' Septal Ratio 9.1 FINDINGS Left Ventricle Normal left ventricular size and systolic function, EF 57 %. Grade I/IV diastolic dysfunction (abnormal relaxation filling pattern), normal to mildly elevated filling pressures. Right Ventricle Normal right ventricular size and systolic function. Right Atrium The right atrium is normal in size. Left Atrium The left atrium is normal in size. Mitral Valve Minimally thickened Aortic Valve Thickened aortic valve. Tricuspid Valve No gross abnormalities noted Pulmonic Valve Pulmonic valve not well visualized. Pericardium Normal pericardium without effusion. Aorta Normal aortic annulus size. IVC Normal inferior vena cava. CONCLUSIONS Normal left ventricular size and systolic function, EF 57 %. Grade I/IV diastolic dysfunction (abnormal relaxation filling pattern), normal to mildly elevated filling pressures. Minimally thickened aortic and mitral valves. There is no pericardial effusion. There are no intracardiac masses. No similar previous studies are available for comparison Dr Jos Mc MD FACC (Electronically Signed) Final Date: 14 February 2022 14:12 S
[2022-02-14] MEDS: metoprolol tartrate 25 mg Tablet 12.5 MG PO ×2 (09:09→20:17)
[2022-02-14] MEDS: aspirin 81 mg Chew Tablet PO (09:10)
[2022-02-14] MEDS: famotidine 20 mg Tablet PO (09:10)
--- NOTE | 2022-02-14 09:19 | PM.PN ---
Subjective Subjective: Patient is feeling okay. He has a troponin T at 2 hours and 6-hour interval. Was found to have a significant delta at 2 hours. Currently he denies any chest pain or shortness of breath. Telemetry shows sinus rhythm. Because of the relatively slow heart rate and blood pressure, the amiodarone was discontinued. The dose of the metoprolol also was cut down to 12.5 mg p.o. twice daily. Denies any fever or chills. No cough. Medications: Medication Review Details: Current Medications Acetaminophen (Acetaminophen 325 Mg Tablet) 650 mg PO Q6H PRN PRN Reason: Mild/Mod Pain Or Temp >/= 101 Aspirin (Aspirin 81 Mg Chew Tablet) 81 mg PO DAILY REPLACED BY [facility] Last Admin: 02/14/22 09:10 Dose: 81 mg Atorvastatin Calcium (Atorvastatin 40 Mg Tablet) 40 mg PO BEDTIME REPLACED BY [facility] Last Admin: 02/13/22 21:18 Dose: 40 mg Enoxaparin Sodium (Enoxaparin 80 Mg/0.8 Ml Syringe) 80 mg SUBCUT Q12H REPLACED BY [facility] Last Admin: 02/14/22 09:11 Dose: Not Given Famotidine (Famotidine 20 Mg Tablet) 20 mg PO BID REPLACED BY [facility] Last Admin: 02/14/22 09:10 Dose: 20 mg Amiodarone HCl 900 mg/Dextrose/ IV Miscellaneous Supplies 518 mls @ 17.267 mls/hr IV CONT REPLACED BY [facility] Last Infusion: 02/14/22 02:00 Dose: 0 mg/min, 0 mls/hr Metoprolol Tartrate (Metoprolol Tartrate 25 Mg Tablet) 12.5 mg PO BID@0900,2100 REPLACED BY [facility] Last Admin: 02/14/22 09:09 Dose: 12.5 mg Morphine Sulfate (Morphine 4 Mg/Ml Sdv 1 Ml) 2 mg IVP Q4H PRN PRN Reason: SEVERE PAIN Naloxone HCl (Naloxone 0.4 Mg/Ml Sdv) 0.1 mg IVP Q2M PRN PRN Reason: OPIATERV Nitroglycerin (Nitroglycerin 1 Gm/Inch Oint Pkt) 0.5 inch TOPICAL Q6H REPLACED BY [facility] Last Admin: 02/14/22 09:09 Dose: 0.5 inch Ondansetron HCl (Ondansetron 2 Mg/Ml Sdv 2 Ml) 4 mg IVP Q8H PRN PRN Reason: vomiting, or N/V if npo Trazodone HCl (Trazodone 50 Mg Tablet) 25 mg PO BEDTIME COLLIN Last Admin: 02/13/22 21:18 Dose: 25 mg Vitals/I&O/Wt Last Vital Signs Temp 97.8 F 02/14/22 07:50 Pulse 61 02/14/22 07:50 Resp 15 02/14/22 07:50 BP 115/60 02/14/22 07:50 Pulse Ox 94 02/14/22 07:50 O2 Del Method 02/14/22 04:57 02/13/22 02/14/22 02/14/22 22:59 06:59 14:59 Intake Total 1120 / 1120 202.059 / 1322.059 Balance 1120 / 1120 202.059 / 1322.059 Weight last 48 hrs Weight 175 lb Weight 175 lb Physical Exam Narrative: GENERAL: The patient is alert and oriented times three. Not in any acute distress. HEENT: No significant pallor, icterus or lymphadenopathy.Oral cavity: There are no mucous membrane lesions. NECK: Trachea appears to be central. No masses noted. No JVD or thyromegaly appreciated. RESPIRATORY: Chest is symmetrical. No intercostals muscle retraction or any accessory muscle activation. There is no chest wall tenderness. Breath sounds are heard bilaterally. No rales or rhonchi heard. No evidence of any consolidation. BREASTS: Deferred. HEART: The heart sounds are normal. No S3 or S4. Short systolic murmur in the left sternal border.. No pericardial rub ABDOMEN: No vessel pulsations or distention. No tenderness. No organomegaly appreciated. Bowel sounds are normally heard. : Deferred. RECTAL: Deferred. LYMPHATIC: No lymphadenopathy noted in the neck. EXTREMITIES: No edema or cyanosis. No clubbing. Peripheral pulses are palpable but somewhat weak. MUSCULOSKELETAL: No acute joint deformities or swelling SKIN: There are no significant rashes or ecchymosis NEUROPSYCHIATRIC: The patient is alert and oriented x3. Appears to be in a good mood. No tremors or rigidity noted. Data 02/14/22 02:25 02/14/22 02:25 Other Labs: Laboratory Last Values WBC 4.1 10^3/uL (4.0-10.0) 02/14/22 02:25 RBC 4.27 10^6/uL (4.1-5.3) 02/14/22 02:25 Hgb 13.5 g/dL (11.7-16.6) 02/14/22 02:25 Hct 41.1 % (42.0-52.0) L 02/14/22 02:25 MCV 96.3 fl (80-94) H 02/14/22 02:25 MCH 31.6 pg (28.0-34.0) 02/14/22 02:25 MCHC 32.8 g/dL (30.0-36.0) 02/14/22 02:25 RDW 13.0 % (12.1-15.1) 02/14/22 02:25 Plt Count 166 10^3/cmm (130-400) 02/14/22 02:25 MPV 10.0 fL (7.4-10.4) 02/14/22 02:25 Neut % (Auto) 47.1 % 02/14/22 02:25 Lymph % (Auto) 32.5 % 02/14/22 02:25 [place] % (Auto) 12.8 % 02/14/22 02:25 Eos % (Auto) 6.4 % 02/14/22 02:25 Baso % (Auto) 1.0 % 02/14/22 02:25 Neut # (Auto) 1.91 10^3/uL (1.8-7.7) 02/14/22 02:25 Lymph # (Auto) 1.3 10^3/uL (0.8-4.8) 02/14/22 02:25 [place] # (Auto) 0.5 10^3/uL (0.2-0.9) 02/14/22 02:25 Eos # (Auto) 0.3 10^3/uL (0.0-0.8) 02/14/22 02:25 Baso # (Auto) 0.0 10^3/uL (0.0-0.1) 02/14/22 02:25 Nucleated RBC % (auto) 0 % 02/14/22 02:25 Nucleated RBCs # 0.0 /100WBC 02/14/22 02:25 Sodium 137 mmol/L (136-145) 02/14/22 02:25 Potassium 4.3 mmol/L (3.5-5.1) 02/14/22 02:25 Chloride 107 mmol/L (98-107) 02/14/22 02:25 Carbon Dioxide 21 mmol/L (22-29) L 02/14/22 02:25 Anion Gap 13.3 (5-19) 02/14/22 02:25 BUN 12 mg/dL (8-23) 02/14/22 02:25 Creatinine 1.0 mg/dL (0.7-1.2) 02/14/22 02:25 GFR Calculation Not Reportable 02/14/22 02:25 Glucose 102 mg/dL (65-115) 02/14/22 02:25 Estimat Average Glucose 117 02/14/22 02:25 Hemoglobin A1c 5.7 % (4.0-6.0) 02/14/22 02:25 Calculated Osmolality 284 mOsm/kg (285-295) L 02/14/22 02:25 Calcium 8.4 mg/dL (8.5-10.5) L 02/14/22 02:25 Magnesium 2.1 mg/dL (1.7-2.3) 02/14/22 02:25 Total Bilirubin 0.5 mg/dL (0.15-1.2) 02/14/22 02:25 AST 14 U/L (0-40) 02/14/22 02:25 ALT 9 U/L (0-41) 02/14/22 02:25 Alkaline Phosphatase 48 U/L (40-130) 02/14/22 02:25 Troponin T Gen 5 ng/L 36 ng/L (0-15) H 02/14/22 02:25 Troponin T Baseline 25 ng/L (0-15) H 02/13/22 14:02 Troponin T 120 Minute 47.27 ng/L (0-15) H 02/13/22 18:40 Delta Troponin T 22.27 ABS# (0-10) H* 02/13/22 18:40 Troponin T Hi Sens 6Hr 44.37 ng/L (0-15) H 02/13/22 20:22 Troponin T Hi Sens 6Hr Delta 19.37 ng/L (0-12) H* 02/13/22 20:22 Total Protein 5.5 g/dL (6.6-8.7) L 02/14/22 02:25 Albumin 3.6 g/dL (3.5-5.2) 02/14/22 02:25 Globulin 1.9 g/dL (1.3-4.6) 02/14/22 02:25 Triglycerides 112 mg/dL (0-150) 02/14/22 02:25 Triglycerides Cancelled 02/14/22 02:25 Cholesterol 131 mg/dL (0-200) 02/14/22 02:25 Cholesterol Cancelled 02/14/22 02:25 LDL Cholesterol, Calc 72 mg/dL (50-129) 02/14/22 02:25 LDL Cholesterol, Calc Cancelled 02/14/22 02:25 HDL Cholesterol 37 mg/dL (60-100) L 02/14/22 02:25 HDL Cholesterol Cancelled 02/14/22 02:25 LDL/HDL Ratio 1.95 RATIO (0.00-3.22) 02/14/22 02:25 LDL/HDL Ratio Cancelled 02/14/22 02:25 Cholesterol/HDL Ratio 3.54 mg/dL (1.0-5.00) 02/14/22 02:25 Cholesterol/HDL Ratio Cancelled 02/14/22 02:25 TSH 1.17 uIU/mL (0.27-4.20) 02/13/22 20:22 Echo: My impression: The echocardiogram revealed normal LV size ejection fraction. Segmental wall motion analysis revealing no gross wall motion normalities. A&P Assessment and plan (1) Wide-complex tachycardia: The rhythm appears to be in SVT. He has not had any recurrence. May continue on the current medications. (2) Chest pain: Could related to underlying coronary ischemia. EKG from today showed a sinus bradycardia with right bundle branch block. Diffuse nonspecific T wave changes. Left anterior fascicular block. According the patient, for the last month, he been having easy fatigability and tiredness. Also has been having episodes of chest tightness as mentioned above. Possibility of him having underlying coronary artery disease is a high (3) Elevated blood pressure reading: Patient currently has stage II hypertension. This need to be treated. I may start him on metoprolol 25 mg p.o. twice daily. (4) Elevated troponin: Most likely related to non-ST elevation myocardial infarction. Currently he is stable and asymptomatic. (5) Near syncope: Most likely from the tachyarrhythmia. Has not had any recurrence. (6) Hyperlipidemia: Patient has longstanding history of dyslipidemia. May continue on the current medications. Plan The other problems are History of GERD Neuropathy The echocardiogram was reviewed. Suboptimal study. (Echo contrast - Optison was used to delineate the endocardium and to estimate the LV ejection fraction). LV appeared to be normal size with a normal ejection fraction. No significant wall motion normalities were noted. We will go ahead and schedule him for a cardiac catheterization. Patient angiogram findings, further recommendations will be made. The risk of bleeding, hematoma, vascular injury, myocardial infarction, myocardial perforation, malignant cardiac arrhythmias ,CVA, renal failure and other concomitant complications were explained in detail. Patient understood this well and consented to proceed. Attestations Medical Necessity Statement*: Patient requires continued hospital stay for close monitoring and further management Coding Level of Care Code Acute Technical Documentation Specialist for Chg Fwd Medical Decision Making High Complexity Diagnoses Wide-complex tachycardia R00.0 Chest pain R07.9 Elevated blood pressure reading R03.0 Elevated troponin R77.8 Near syncope R55 Hyperlipidemia E78.5
[2022-02-14] MEDS: sodium chloride 0.9% 1,000 ML 125 ML IV (10:00)
[2022-02-14] MEDS: perflutren protein-a microsphr 0.22 mg/mL SDV 3 mL IV (10:11)
--- NOTE | 2022-02-14 10:13 | XACV_ITS ---
Exam Room: [facility] Ht: 183 cm Wt: 79 kg BSA: 2.01 m2 Gender: Male : 1940 Exam Priority: Routine Procedure(s): Procedure Description: Diagnostic procedure Procedure Description: Left Heart Catheterization Procedure Description: Coronary Angiography Procedure Description: Pressure Wire , ; Diagnostic Cath Status: Urgent Diagnostic Findings * The left main is a medium caliber vessel with no significant obstructive lesions. * The left anterior descending artery is a medium caliber vessel which appears to wrap around the LV apex minimally. The mid and distal segment of the artery was found to have minimal intimal irregularities. No significant stenotic lesions were noted. * Left circumflex artery is a medium caliber nondominant vessel which was found to have a proximal segmental narrowing of around 50%. This was found to be involving the ostium. Minimal intimal irregularities were noted in the midsegment. No significant stenotic lesions were seen. * The intermedius artery was found to be a relatively small caliber vessel with an ostial narrowing from 30%. * The right coronary artery is a medium caliber vessel which was found to have a segmental narrowing for 60% proximally. The distal artery was found to have no significant stenotic lesions. Interventional Findings * PRCEUDURE DETAIL: We engaged RCA with JR4 guide catheter. IV heparin was administered to maintain ACT above 250S. 0.014 run-through guidewire was used to cross RCA stenosis and was put in distal vessel. iFR value of 1 was obtained that was nonischemic. At this time final angiogram was performed. Guide wire and guide catheter were removed. Patient left the Tool Designer in a stable condition.. Conclusions 1. This 81-year-old white male with history of heavy smoking abuse, dyslipidemia,? High blood pressure, presenting with recurrent episodes of chest pains and a near syncopal episode. He was found to have a wide-complex tachycardia, possibly SVT. He had an elevated troponin T suggesting non-ST elevation myocardial infarction. In view of his presenting symptoms and the abnormal objective findings, in order to further evaluate his coronary status, a cardiac catheterization was recommended. Patient underwent left heart catheterization with left and right coronary angiogram today. The findings are as follows. 2. Around 60% segmental narrowing in the proximal right coronary artery. Mild disease in the left anterior descending artery and circumflex artery. Elevated LVEDP, suggesting left-ventricular diastolic dysfunction. 3. To better evaluate the functional significance of the right coronary artery lesion, an IFR was thought to be appropriate. I reviewed and discussed the cardiac catheterization data with Dr. Chirinos. Dr. Chirinos concurred with this plan and took over further management of this patient at this point. 4. Non-ischemic iFR for proximal RCA stenosis. Recommendations * Aggressive risk factor modification. * Outpatient cardiology follow up in 4 weeks. Interventional RX Recommendation: medical therapy and/or counseling Diagnostic RX Recommendation: other cardiac therapy w/o CABG/PCI Anticoagulation: Heparin LV EDP: 22 mmHg Left Ventriculography Findings: * LV gram was not performed. The LVEDP was 20 mmHg. Pressures Phase:Rest AO : 91 / 43 ( 63 ) @ 10:52:00 AM 75 / 50 ( 62 ) @ 10:55:00 AM 86 / 54 ( 70 ) @ 11:01:00 AM 111 / 52 ( 75 ) @ 11:03:00 AM 110 / 51 ( 75 ) @ 11:03:00 AM 92 / 53 ( 69 ) @ 11:25:00 AM LV : 109 / 10 / 22 @ 11:02:00 AM 109 / 7 / 19 @ 11:03:00 AM Valves Phase:DefaultPhase AV : 0.0 @ 11:45:57 AM AV Mean Gradient: 0.0 @ 11:45:57 AM Clinical Evaluation EBL: 5mL-10mL Procedural Details Procedure Consent Obtained. Admit Source: In Patient. Pre-Procedure Time Out. Identified patient by full name and date of as verbalized by the patient/guarantor. Does the consent match the physician's order: Yes. Accurate & Complete Informed Consent: Yes. Inpatient/Outpatient History & Physical on Chart: Yes. If H&P is completed, is and addenduem needed: N/A; If yes, is the addendum complete: N/A. Visualize and Verify Site with Patient/Guarantor: N/A. The risks, benefits, and alternatives of sedation and/or procedure were discussed by physician. The patient agrees to continue. Procedure started. [facility] Clinical Fraility Score: 3: Managing Well. Tool Designer Indications: Cardiac Arrhythmia. Chest Pain Symptom Assessment: Typical Angina Symptoms. Correct patient, site and procedure confirmed by cath team. Current diagnosis: Chest Pain. PERRLA. Strong, equal hand digital advisor bilaterally. Lungs clear x 5 lobes. IV Site on Arrival: 20 gauge in the left forearm. IV Fluids: 0.9% NaCl at KVO. 100 mL infused prior to biological lab technician. Pre Procedural Pulses: right radial was 2+. Pre Procedural Pulses: bilateral dorsalis pedis was 2+. Oxygen started at 2liters/min via nasal canula. right groin was prepped with chloroprep then draped in the usual sterile fashion. right radial was prepped with chloroprep then draped in the usual sterile fashion. Baseline sample Acquired. HR: 53 BPM. Physician notified. Physician arrived. Physician scrubbed in. Immediate Pre-Procedure Time Out. Correct Patient: Yes; Correct Procedure: Yes; Correct Site: Yes; Correct Patient Position: Yes; Correct Supplies: Yes; Dried Flammable Prep: Yes; Blood Products Available: N/A;. Lidocaine 1% infiltrated to the right radial. Arterial access obtained. A 5 welsh Rebel catheter in over wire. Multiple views taken of left coronary artery. Catheter removed over the exchange wire. A 5 welsh JR4 catheter in over wire. Multiple views taken of right coronary artery. EDP Sample taken: LV 109/10,22; HR: 44 BPM; SpO2: 98%. Pullback taken: LV 109/7,19; AO 111/52(75); Mean: 0mmHg, Peak to Peak: 0mmHg, SEP: 7sec/min; HR: 56 BPM; SpO2: 97%. Catheter removed over the exchange wire. Physician scrubbed out. Physician review of cine films. Dr. Chirinos scrubbed in to perform intervention. Radial sheath flushed periodically to maintain patency. Patient's family updated. 6 welsh JR 4 guide catheter was inserted over the wire. Raidal access aborted d/t spasm. Guide catheter out. Arterial access obtained with micropuncture set. 6 welsh JR 4 guide catheter was inserted over the wire. IFR guidewire was advanced through the guide catheter to lesion in the mid RCA. Fractional flow reserve measurements obtained. Pressure wire out. A Right femoral angiogram was performed to determine safe placement of closure device. A TR Band was successful obtaining hemostatsis at the Right Radial artery insertion site. A Suture was successful obtaining hemostatsis at the Right Femoral artery insertion site. Sheath(s) sutured into position with 2-0 silk and sterile 4x4's and Op-site applied over the site. No oozing or signs and symptoms of hematoma noted. Post Procedure: Pulses reassessed and unchanged. PERRLA. Strong, equal hand digital advisor bilaterally. No VTE prophylaxis required. Medication's Wasted: Lidocaine 1% = 1 mL. Medication's Wasted: Nitro = 49.7 mg. Medication's Wasted: Heparin = 2000 u. Medication's Wasted: Other = Fentanyl 75 mcg. Total IV fluids: 351 mL. Post-op diagnosis: Non obstructive CAD. Complications: none. Estimated blood loss: 5mL-10mL. Responsiveness - Normal response to verbal stimuli; alert and oriented, PERRLA. Airway - Unaffected, no intervention required; spontaneous ventilation. Circulation: W/N/L, pulses unchanged. Nausea/Vomiting: No. Procedure completed. Patient transferred by bed to 1st floor. Vital chart was stopped. Access Site Site: Right Radial artery Sheath Size: 6 Fr Hemostasis Method: TR Band Hemostasis Success: Successful Site: Right Femoral artery Sheath Size: 6 Fr Hemostasis Method: Suture Hemostasis Success: Successful Procedure Medications Start: 10:42 AM Stop: 10:42 AM Medication: Versed Amount: 1 mg Route: I.V. Start: 10:42 AM Stop: 10:42 AM Medication: Fentanyl Amount: 25 mcg Route: I.V. Start: 10:50 AM Stop: 10:50 AM Medication: Nitrogylcerin Amount: 100 mcg Route: I.A. Start: 10:51 AM Stop: 10:51 AM Medication: 0.9% Saline Amount: 250 ml Route: I.V. bolus Start: 10:52 AM Stop: 10:52 AM Medication: Heparin Amount: 5000 units Route: I.V. Start: 11:17 AM Stop: 11:17 AM Medication: Versed Amount: 1 mg Route: I.V. Start: 11:18 AM Stop: 11:18 AM Medication: Nitrogylcerin Amount: 200 mcg Route: I.A. Start: 10:31 AM Stop: 10:31 AM Medication: Heparin Amount: 2000 units Route: I.V. I, the attending physician, have reviewed and verified all procedure medications. Yes, all medications given per verbal order History/Risk Factors Hypertension: No Dyslipidemia: Yes Peripheral Arterial Disease (PAD): No Myocardial Infarction (MA): No Obesity: No Renal Disease: No Prior Interventions PCI: No CABG: No Valve Surgery: No Report Signatures Interventional Workflow Finalized by Casey Chirinos MD on 02/17/2022 11:18 AM Diagnostic Workflow Finalized by Dr Jos Mc MD [facility] on 02/15/2022 04:13 PM
--- NOTE | 2022-02-14 10:15 | W.PM.OPSUD ---
Surgery/Procedure H&P Update DATE OF PROCEDURE: February 14, 2022 DATE H&P PERFORMED: 02/13/22 H&P UPDATE INFORMATION: I have reviewed H&P completed within last 30 days, I have examined patient prior to procedure and No changes to prior documentation PREOP DIAGNOSIS: Possible ASHD PRIMARY INDICATION FOR PROCEDURE: Wide-complex tachycardia/non-ST relation myocardial infarction/multiple risk factors for coronary artery disease PLANNED PROCEDURE: Left heart catheterization with left and right coronary angiogram and possible PCI PATIENT REASSESSED PRIOR TO SEDATION, WITH NO CHANGE NOTED: Yes PHYSICAL EXAM: alert, oriented x 3, clear to auscultation bilaterally and regular rate & rhythm AIRWAY EVAL/ANESTHESIA PLAN: normal airway, see other exam findings, ASA III, Monitored Anesthesia, Local Anesthesia, Risks, benefits & alternatives of sedation and/or procedure discussed and Patient agrees to continue as planned
--- NOTE | 2022-02-14 10:30 | PC.NURSE ---
to cardiac woods laborer via bed at 1025
--- NOTE | 2022-02-14 12:37 | PC.NURSE ---
received from cardiac medical lab tech instructor at 1155 via bed.report received.pt is alert and awake.denies pain at present.sb on monitor.right radial tr band on and inflated.right hand is warm to touch and with brisk capillary refill.no hematoma noted.palpable radial pulse noted distal to tr band.right femoral arterial sheath intact to pressurized system.drsg is dry and intact.no hematoma noted.right leg is warm to touch and with brisk capillary refill.palpable dp pulse noted.pt instructed in activity restrictions s/p arterial procedures..and instructed to notify staff for any bleeding,numbness,sob,or for any concerns at all.pt verb understanding of instructions
--- NOTE | 2022-02-14 15:33 | P.PN_ITS ---
Subjective Subjective: Patient had uptrending troponins at 2 and 6 hours yesterday. He underwent coronary angiogram earlier this morning due to suspicion for underlying coronary ischemia. No significant lesions were found. Amiodarone infusion was discontinued last night because of bradycardia. He will had been started on metoprolol 25 p.o. twice daily, reduced dose to 12.5 mg p.o. twice daily today. Patient feels well, eager to return home. Still has sheath in place. Medications: Reviewed: Yes Medication Review Details: Current Medications Acetaminophen (Acetaminophen 325 Mg Tablet) 650 mg PO Q6H PRN PRN Reason: Mild/Mod Pain Or Temp >/= 101 Aspirin (Aspirin 81 Mg Chew Tablet) 81 mg PO DAILY [facility] Last Admin: 02/14/22 09:10 Dose: 81 mg Atorvastatin Calcium (Atorvastatin 40 Mg Tablet) 40 mg PO BEDTIME [facility] Last Admin: 02/13/22 21:18 Dose: 40 mg Enoxaparin Sodium (Enoxaparin 80 Mg/0.8 Ml Syringe) 80 mg SUBCUT Q12H [facility] Last Admin: 02/14/22 09:11 Dose: Not Given Famotidine (Famotidine 20 Mg Tablet) 20 mg PO BID [facility] Last Admin: 02/14/22 09:10 Dose: 20 mg Amiodarone HCl 900 mg/Dextrose/ IV Miscellaneous Supplies 518 mls @ 17.267 mls/hr IV CONT [facility] Last Infusion: 02/14/22 02:00 Dose: 0 mg/min, 0 mls/hr Metoprolol Tartrate (Metoprolol Tartrate 25 Mg Tablet) 12.5 mg PO BID@0900,2100 [facility] Last Admin: 02/14/22 09:09 Dose: 12.5 mg Morphine Sulfate (Morphine 4 Mg/Ml Sdv 1 Ml) 2 mg IVP Q4H PRN PRN Reason: SEVERE PAIN Naloxone HCl (Naloxone 0.4 Mg/Ml Sdv) 0.1 mg IVP Q2M PRN PRN Reason: OPIATERV Nitroglycerin (Nitroglycerin 1 Gm/Inch Oint Pkt) 0.5 inch TOPICAL Q6H [facility] Last Admin: 02/14/22 09:09 Dose: 0.5 inch Ondansetron HCl (Ondansetron 2 Mg/Ml Sdv 2 Ml) 4 mg IVP Q8H PRN PRN Reason: vomiting, or N/V if npo Trazodone HCl (Trazodone 50 Mg Tablet) 25 mg PO BEDTIME [facility] Last Admin: 02/13/22 21:18 Dose: 25 mg Vitals/I&O/Wt Last Vital Signs Temp 97.8 F 02/14/22 07:50 Pulse 60 02/14/22 15:15 Resp 18 02/14/22 12:11 BP 112/66 02/14/22 12:11 Pulse Ox 95 02/14/22 15:15 O2 Del Method 02/14/22 15:15 02/14/22 02/14/22 02/14/22 06:59 14:59 22:59 Intake Total 202.059 / 1322.059 240 / 240 Balance 202.059 / 1322.059 240 / 240 Weight last 48 hrs Weight 79.379 kg Weight 79.379 kg Physical Exam Narrative: General: No acute distress, AO x3 HEENT: PERRLA, pupils bilaterally equal and reactive, pallors not present Chest: Normal vesicular breath sounds, no added sounds, equal good air entry bilaterally CVS: S1-S2 regular, no murmurs, no tachycardia, no gallops, no rubs Abdomen: Soft, nontender, no organomegaly, bowel sounds present Neuro: No focal deficits, no facial deformity, AO x3, power 5/5 in all limbs Extremities: No clubbing edema or cyanosis Data 02/14/22 02:25 02/14/22 02:25 A&P Assessment and plan (1) Wide-complex tachycardia: (2) Chest pain: Plan Patient presenting today with chest pain, palpitations, found to have wide- complex tachycardia by EMS. Received amiodarone following which he converted into sinus rhythm and is continued on a drip thereafter. Has some on and off episodes of chest pain also going back many months, underwent coronary angiogram this morning. No major CAD found for planned preliminary report. Baseline rhythm currently is sinus with right bundle branch block. Per cardi ology initial rhythm appeared to be SVT. Elevated troponins are likely the result of type II NC from the arrhythmia. He has been started on metoprolol 12.5 mg p.o. twice daily. Monitoring his heart rate while in the hospital. If no further events on telemetry, will plan to discharge patient in the next 24 hours or so Attestations Medical Necessity Statement*: Underwent coronary angiogram today, still has sheath in place, monitor for another 24 hours for any arrhythmias, response to metoprolol, anticipate discharge in the upcoming 24 hours. Coding Level of Care Code Acute Child Welfare Assistant for Dieter Escobar Diagnoses Wide-complex tachycardia R00.0 Chest pain R07.9
[2022-02-14 16:38] LABS: Partial Thromboplastin Time 55.1 SECONDS (23.9-36.7)
--- NOTE | 2022-02-14 17:46 | PC.NURSE ---
right femoral arterial sheath pulled at 1655.pressure held x 20 min.vss through-out procedure.no hematoma formation noted.site dressed with 2x2 gauze and secured with biocclusive drsg.instructed in activity restrictions s/p arterial sheath pull...and instructed to contact staff for any bleeding,swelling,pain,numbness or for any concerns at all.pt verb understanding of instructions.have attempted several times to remove tr band through-out day....bleeding ensued so had to reinflate tr band.pt very active with hand and have instructed many times in activity restrictions.will cont to slowly deflate band.
--- NOTE | 2022-02-14 18:27 | PC.NURSE ---
tr band continues to ooze when 2-3 cc of air removed.pt again instructed to limit use of hand.new tr band applied.pt's skin is very friable and area has soft bruising noted.instructed to notify staff for any further bleeding.pt verb understanding of instructions.
[2022-02-14] MEDS: atorvastatin 40 mg Tablet PO (20:17)
--- NOTE | 2022-02-14 22:28 | PC.NURSE ---
Upon entering pt's room appx 1944, pt found up out of bed taking off gown and pulling on pulse ox wire with TR band still in place, pt assisted back to bed and instructed not to get up until 2300, groin site soft with no bleeding or hematoma, no bleeding or hematoma noted to wrist site but pt stated he had loosened TR band because it was tight, pt educated on risk of bleeding and instructed not to loosen TR band. Appx [id number] pt found wandering in hallway fully dressed with overalls looking for his room, pt reeducated on risk or bleeding and instructed again to stay in bed until 2300, no bleeding or hematoma noted to groin, bed alarm set in room also reeducated that patient was not to get up until 2300.
[2022-02-15] VITALS: BP 127/85; PULSE 71; RESP 18; TEMP 36.8; O2SAT 96
[2022-02-15 03:53] VITALS: BP 106/58; PULSE 76; RESP 20; TEMP 36.8; O2SAT 97
[2022-02-15 04:00] VITALS: PULSE 62; O2SAT 97
[2022-02-15 07:09] VITALS: BP 128/65; PULSE 61; RESP 20
[2022-02-15] MEDS: metoprolol tartrate 25 mg Tablet 12.5 MG PO (08:08)
[2022-02-15] MEDS: aspirin 81 mg Chew Tablet PO (08:08)
[2022-02-15 08:58] VITALS: PULSE 61; O2SAT 97
[2022-02-15 09:22] LABS: Basophils % 0.6 %; Eosinophils # 0.1 10^3/uL (0.0-0.8); Eosinophils % 2.7 %; Hematocrit 42.4 % (42.0-52.0); Hemoglobin 13.2 g/dL (11.7-16.6); Lymphocytes # 0.9 10^3/uL (0.8-4.8); Lymphocytes % 18.6 %; Mean Corpuscular HGB Conc 31.1 g/dL (30.0-36.0); Mean Corpuscular Hemoglobin 31.8 pg (28.0-34.0); Mean Corpuscular Volume 102.2 fl (80-94); Mean Platelet Volume 10.1 fL (7.4-10.4); Monocytes # 0.6 10^3/uL (0.2-0.9); Monocytes % 11.4 %; Neutrophils # 3.22 10^3/uL (1.8-7.7); Neutrophils % 66.5 %; Nucleated Red Blood Cells % 0 %; Platelet Count 163 10^3/cmm (130-400); Red Blood Count 4.15 10^6/uL (4.1-5.3); Red Cell Distribution Width 12.9 % (12.1-15.1); White Blood Count 4.8 10^3/uL (4.0-10.0)
--- NOTE | 2022-02-15 09:46 | P.DS_ITS ---
Discharge Providers Date of Admission: 02/13/22 15:35 Date of Discharge: February 15, 2022 Attending Provider at Admission: Nikkie Castillo MD Attending Provider at Discharge: Nikkie Castillo MD Consults: Vanessa Mc MD/ Cardiology Primary Care Provider: Mendoza Forman DO Diagnoses at Discharge Discharge Diagnosis (1) Wide-complex tachycardia: Status: Acute (2) Chest pain: Status: Acute Reason for Visit Reason for Visit: vtach Brief History: Taken from H&P: 81 year old male with a past medical history of dyslipidemia.? He was driving today when he suddenly started to feel a sudden pressure in the middle of his chest as if a brick is laying on his chest.? Also had some palpitations.? Initially he kept driving, however the sensation record after 10 to 15 minutes so he turned into the [place] clinic.? As soon as he entered the clinic he states that he passed out and fell to the floor.? EMS was called in, he was noted to be in wide-complex tachycardia at 176 bpm.? He did not receive defibrillation or cardioversion.? He he was given amiodarone and thereafter turned into sinus rhythm and was brought into the emergency room.?ROS + dyspnea during the event. Hospital Course Hospital Course Patient was initially started on amiodarone infusion, discontinued overnight on 02/14 as he developed bradycardia. he was started on metoprolol, dose adjusted to 12.5mg po BID following which he has been maintained in sinus rhythm at 60-70 bpm. His troponins trended up at 2 and 6 hr and due to concern for underlying is chemic event, he was taken to the experimental machining lab manager on 02/14. No significant CAD was found, no stents were indicated. Arrhythmia has not recurred on telemetry moniotoring. Patient feels well, denies chest pain and is eager to return home. He is being discharged in stable condition with advoce to follow up with cardiology as an outpatient. Course marked by significant sun downing on the evening of 02/14. Patient may have undiagnosed underlying dementia- defer to PCP for further evaluation. He is alert, awake and oriented currently. Physical Exam Narrative: General: No acute distress, AO x3 HEENT: PERRLA, pupils bilaterally equal and reactive, pallors not present Chest: Normal vesicular breath sounds, no added sounds, equal good air entry bilaterally CVS: S1-S2 regular, no murmurs, no tachycardia, no gallops, no rubs Abdomen: Soft, nontender, no organomegaly, bowel sounds present Neuro: No focal deficits, no facial deformity, AO x3, power 5/5 in all limbs Discharge Data Studies Completed and Pending Completed Studies During Hospitalization Category Date Time Status XR chest 1V portable [id number] Stat Exams 02/13/22 13:57 Completed CV. echo wo/w contrast [id number] Routine Ultrasound 02/14/22 06:00 Completed Pending at discharge Category Date Time Status [facility] NURSE SUPERVISOR request for service Routine Exams 02/14/22 10:13 Taken BMP [Basic Metabolic Panel] Routine Lab 02/15/22 08:48 Received Radiology Impressions Chest X-Ray 02/13/22 13:57 Impression: Atherosclerosis. Laboratory Results WBC 4.8 10^3/uL (4.0-10.0) 02/15/22 08:48 RBC 4.15 10^6/uL (4.1-5.3) 02/15/22 08:48 Hgb 13.2 g/dL (11.7-16.6) 02/15/22 08:48 Hct 42.4 % (42.0-52.0) 02/15/22 08:48 MCV 102.2 fl (80-94) H 02/15/22 08:48 MCH 31.8 pg (28.0-34.0) 02/15/22 08:48 MCHC 31.1 g/dL (30.0-36.0) 02/15/22 08:48 RDW 12.9 % (12.1-15.1) 02/15/22 08:48 Plt Count 163 10^3/cmm (130-400) 02/15/22 08:48 MPV 10.1 fL (7.4-10.4) 02/15/22 08:48 Neut % (Auto) 66.5 % 02/15/22 08:48 Lymph % (Auto) 18.6 % 02/15/22 08:48 [place] % (Auto) 11.4 % 02/15/22 08:48 Eos % (Auto) 2.7 % 02/15/22 08:48 Baso % (Auto) 0.6 % 02/15/22 08:48 Neut # (Auto) 3.22 10^3/uL (1.8-7.7) 02/15/22 08:48 Lymph # (Auto) 0.9 10^3/uL (0.8-4.8) 02/15/22 08:48 [place] # (Auto) 0.6 10^3/uL (0.2-0.9) 02/15/22 08:48 Eos # (Auto) 0.1 10^3/uL (0.0-0.8) 02/15/22 08:48 Baso # (Auto) 0.0 10^3/uL (0.0-0.1) 02/15/22 08:48 Nucleated RBC % (auto) 0 % 02/15/22 08:48 Nucleated RBCs # 0.0 /100WBC 02/15/22 08:48 APTT 55.1 SECONDS (23.9-36.7) H 02/14/22 15:31 Sodium 137 mmol/L (136-145) 02/14/22 02:25 Potassium 4.3 mmol/L (3.5-5.1) 02/14/22 02:25 Chloride 107 mmol/L (98-107) 02/14/22 02:25 Carbon Dioxide 21 mmol/L (22-29) L 02/14/22 02:25 Anion Gap 13.3 (5-19) 02/14/22 02:25 BUN 12 mg/dL (8-23) 02/14/22 02:25 Creatinine 1.0 mg/dL (0.7-1.2) 02/14/22 02:25 GFR Calculation Not Reportable 02/14/22 02:25 Glucose 102 mg/dL (65-115) 02/14/22 02:25 Estimat Average Glucose 117 02/14/22 02:25 Hemoglobin A1c 5.7 % (4.0-6.0) 02/14/22 02:25 Calculated Osmolality 284 mOsm/kg (285-295) L 02/14/22 02:25 Calcium 8.4 mg/dL (8.5-10.5) L 02/14/22 02:25 Magnesium 2.1 mg/dL (1.7-2.3) 02/14/22 02:25 Total Bilirubin 0.5 mg/dL (0.15-1.2) 02/14/22 02:25 AST 14 U/L (0-40) 02/14/22 02:25 ALT 9 U/L (0-41) 02/14/22 02:25 Alkaline Phosphatase 48 U/L (40-130) 02/14/22 02:25 Troponin T Gen 5 ng/L 36 ng/L (0-15) H 02/14/22 02:25 Troponin T Baseline 25 ng/L (0-15) H 02/13/22 14:02 Troponin T 120 Minute 47.27 ng/L (0-15) H 02/13/22 18:40 Delta Troponin T 22.27 ABS# (0-10) H* 02/13/22 18:40 Troponin T Hi Sens 6Hr 44.37 ng/L (0-15) H 02/13/22 20:22 Troponin T Hi Sens 6Hr Delta 19.37 ng/L (0-12) H* 02/13/22 20:22 Total Protein 5.5 g/dL (6.6-8.7) L 02/14/22 02:25 Albumin 3.6 g/dL (3.5-5.2) 02/14/22 02:25 Globulin 1.9 g/dL (1.3-4.6) 02/14/22 02:25 Triglycerides 112 mg/dL (0-150) 02/14/22 02:25 Triglycerides Cancelled 02/14/22 02:25 Cholesterol 131 mg/dL (0-200) 02/14/22 02:25 Cholesterol Cancelled 02/14/22 02:25 LDL Cholesterol, Calc 72 mg/dL (50-129) 02/14/22 02:25 LDL Cholesterol, Calc Cancelled 02/14/22 02:25 HDL Cholesterol 37 mg/dL (60-100) L 02/14/22 02:25 HDL Cholesterol Cancelled 02/14/22 02:25 LDL/HDL Ratio 1.95 RATIO (0.00-3.22) 02/14/22 02:25 LDL/HDL Ratio Cancelled 02/14/22 02:25 Cholesterol/HDL Ratio 3.54 mg/dL (1.0-5.00) 02/14/22 02:25 Cholesterol/HDL Ratio Cancelled 02/14/22 02:25 TSH 1.17 uIU/mL (0.27-4.20) 02/13/22 20:22 Imaging Echo: Radiologist's impression: ?CONCLUSIONS ?Normal left ventricular size and systolic function, EF 57 %. ?Grade I/IV diastolic dysfunction (abnormal relaxation filling ?pattern), normal to mildly elevated filling pressures. ?Minimally thickened aortic and mitral valves. ?There is no pericardial effusion. ?There are no intracardiac masses. ?No similar previous studies are available for comparison Vitals Last Vital Signs Temp 98.2 F 02/15/22 03:53 Pulse 61 02/15/22 08:58 Resp 20 H 02/15/22 07:09 BP 128/65 02/15/22 07:09 Pulse Ox 97 02/15/22 08:58 O2 Del Method 02/15/22 08:58 Discharge Plan Discharge Patient Disposition: Home Condition: Stable Prescriptions: New metoprolol tartrate 25 mg Tablet 12.5 mg PO BID@0900,2100 30 Days Qty: 60 0RF Continued famotidine 20 mg tablet 20 mg PO BID aspirin 81 mg tablet,delayed release (DR/EC) 81 mg PO DAILY simvastatin 80 mg tablet 80 mg PO QPM trazodone 50 mg tablet 25 mg PO BEDTIME cholecalciferol (vitamin D3) 25 mcg (1,000 unit) capsule 25 mcg PO DAILY Discharge Orders: Discharge Order (Routine); Ordered 02/15/22 Ordered By: Nikkie Castillo Referrals: Mendoza Forman DO [Primary Care Provider] - Discharge Diet: Cardiac Discharge Activity: Resume usual activity and Increase activity as tolerated Patient Instructions: Opioid Safety Discharge Attestations Time Spent in Discharge Care*: greater than 30 min Quality Metrics Clinical Quality Measures [ No reported AMI, CVA or VTE this stay] Coding Level of Care Code Acute Chg FW DC note Diagnoses Wide-complex tachycardia R00.0 Chest pain R07.9
[2022-02-15 10:00] LABS: Blood Urea Nitrogen 13 mg/dL (8-23); Calcium 8.8 mg/dL (8.5-10.5); Carbon Dioxide 20 mmol/L (22-29); Chloride 105 mmol/L (98-107); Glucose 125 mg/dL (65-115); Osmolality Calculated 282 mOsm/kg (285-295); Sodium 135 mmol/L (136-145)
[2022-02-15 10:04] LABS: Anion Gap 13.9 (5-19); Potassium 3.9 mmol/L (3.5-5.1)
[2022-02-15 10:15] VITALS: PULSE 61; O2SAT 97
--- NOTE | 2022-02-15 10:29 | PM.PN ---
Subjective Subjective: Patient is feeling okay. Has not had any recurrence of chest pain. Had a cardiac catheterization today. He was found to have moderate disease in the right coronary artery and mild disease in the other vessels. IFR of the RCA lesion was unremarkable. It was opted to treat him medically. Medications: Medication Review Details: Current Medications Aspirin (Aspirin 81 Mg Chew Tablet) 81 mg PO DAILY [facility] Last Admin: 02/15/22 08:08 Dose: 81 mg Atorvastatin Calcium (Atorvastatin 40 Mg Tablet) 40 mg PO BEDTIME [facility] Last Admin: 02/14/22 20:17 Dose: 40 mg Sodium Chloride (Sodium Chloride 0.9%) 1,000 mls @ 125 mls/hr IV .Q8H [facility] Last Admin: 02/15/22 01:13 Dose: Not Given Metoprolol Tartrate (Metoprolol Tartrate 25 Mg Tablet) 12.5 mg PO BID@0900,2100 [facility] Last Admin: 02/15/22 08:08 Dose: 12.5 mg Ondansetron HCl (Ondansetron 2 Mg/Ml Sdv 2 Ml) 4 mg IVP Q8H PRN PRN Reason: vomiting, or N/V if npo Vitals/I&O/Wt Last Vital Signs Temp 98.2 F 02/15/22 03:53 Pulse 61 02/15/22 10:15 Resp 20 H 02/15/22 07:09 BP 128/65 02/15/22 07:09 Pulse Ox 97 02/15/22 10:15 O2 Del Method 02/15/22 08:58 02/14/22 02/15/22 02/15/22 22:59 06:59 14:59 Intake Total 1915.941 / 2155.941 240 / 2395.941 Output Total 200 / 200 350 / 350 Balance 1715.941 / 1955.941 240 / 2195.941 -350 / -350 Weight last 48 hrs Weight 175 lb Weight 175 lb Physical Exam Narrative: GENERAL: The patient is alert and oriented times three. Not in any acute distress. HEENT: No significant pallor, icterus or lymphadenopathy.Oral cavity: There are no mucous membrane lesions. NECK: Trachea appears to be central. No masses noted. No JVD or thyromegaly appreciated. RESPIRATORY: Chest is symmetrical. No intercostals muscle retraction or any accessory muscle activation. There is no chest wall tenderness. Breath sounds are heard bilaterally. No rales or rhonchi heard. No evidence of any consolidation. BREASTS: Deferred. HEART: The heart sounds are normal. No S3 or S4. Short systolic murmur in the left sternal border.. No pericardial rub ABDOMEN: No vessel pulsations or distention. No tenderness. No organomegaly appreciated. Bowel sounds are normally heard. : Deferred. RECTAL: Deferred. LYMPHATIC: No lymphadenopathy noted in the neck. EXTREMITIES: No edema or cyanosis. No clubbing. Peripheral pulses are palpable but somewhat weak. MUSCULOSKELETAL: No acute joint deformities or swelling SKIN: There are no significant rashes or ecchymosis NEUROPSYCHIATRIC: The patient is alert and oriented x3. Appears to be in a good mood. No tremors or rigidity noted. Data 02/15/22 08:48 02/15/22 08:48 Other Labs: Laboratory Last Values WBC 4.8 10^3/uL (4.0-10.0) 02/15/22 08:48 RBC 4.15 10^6/uL (4.1-5.3) 02/15/22 08:48 Hgb 13.2 g/dL (11.7-16.6) 02/15/22 08:48 Hct 42.4 % (42.0-52.0) 02/15/22 08:48 MCV 102.2 fl (80-94) H 02/15/22 08:48 MCH 31.8 pg (28.0-34.0) 02/15/22 08:48 MCHC 31.1 g/dL (30.0-36.0) 02/15/22 08:48 RDW 12.9 % (12.1-15.1) 02/15/22 08:48 Plt Count 163 10^3/cmm (130-400) 02/15/22 08:48 MPV 10.1 fL (7.4-10.4) 02/15/22 08:48 Neut % (Auto) 66.5 % 02/15/22 08:48 Lymph % (Auto) 18.6 % 02/15/22 08:48 [place] % (Auto) 11.4 % 02/15/22 08:48 Eos % (Auto) 2.7 % 02/15/22 08:48 Baso % (Auto) 0.6 % 02/15/22 08:48 Neut # (Auto) 3.22 10^3/uL (1.8-7.7) 02/15/22 08:48 Lymph # (Auto) 0.9 10^3/uL (0.8-4.8) 02/15/22 08:48 [place] # (Auto) 0.6 10^3/uL (0.2-0.9) 02/15/22 08:48 Eos # (Auto) 0.1 10^3/uL (0.0-0.8) 02/15/22 08:48 Baso # (Auto) 0.0 10^3/uL (0.0-0.1) 02/15/22 08:48 Nucleated RBC % (auto) 0 % 02/15/22 08:48 Nucleated RBCs # 0.0 /100WBC 02/15/22 08:48 APTT 55.1 SECONDS (23.9-36.7) H 02/14/22 15:31 Sodium 135 mmol/L (136-145) L 02/15/22 08:48 Potassium 3.9 mmol/L (3.5-5.1) 02/15/22 08:48 Chloride 105 mmol/L (98-107) 02/15/22 08:48 Carbon Dioxide 20 mmol/L (22-29) L 02/15/22 08:48 Anion Gap 13.9 (5-19) 02/15/22 08:48 BUN 13 mg/dL (8-23) 02/15/22 08:48 Creatinine 0.9 mg/dL (0.7-1.2) 02/15/22 08:48 GFR Calculation Not Reportable 02/15/22 08:48 Glucose 125 mg/dL (65-115) H 02/15/22 08:48 Estimat Average Glucose 117 02/14/22 02:25 Hemoglobin A1c 5.7 % (4.0-6.0) 02/14/22 02:25 Calculated Osmolality 282 mOsm/kg (285-295) L 02/15/22 08:48 Calcium 8.8 mg/dL (8.5-10.5) 02/15/22 08:48 Magnesium 2.1 mg/dL (1.7-2.3) 02/14/22 02:25 Total Bilirubin 0.5 mg/dL (0.15-1.2) 02/14/22 02:25 AST 14 U/L (0-40) 02/14/22 02:25 ALT 9 U/L (0-41) 02/14/22 02:25 Alkaline Phosphatase 48 U/L (40-130) 02/14/22 02:25 Troponin T Gen 5 ng/L 36 ng/L (0-15) H 02/14/22 02:25 Troponin T Baseline 25 ng/L (0-15) H 02/13/22 14:02 Troponin T 120 Minute 47.27 ng/L (0-15) H 02/13/22 18:40 Delta Troponin T 22.27 ABS# (0-10) H* 02/13/22 18:40 Troponin T Hi Sens 6Hr 44.37 ng/L (0-15) H 02/13/22 20:22 Troponin T Hi Sens 6Hr Delta 19.37 ng/L (0-12) H* 02/13/22 20:22 Total Protein 5.5 g/dL (6.6-8.7) L 02/14/22 02:25 Albumin 3.6 g/dL (3.5-5.2) 02/14/22 02:25 Globulin 1.9 g/dL (1.3-4.6) 02/14/22 02:25 Triglycerides 112 mg/dL (0-150) 02/14/22 02:25 Triglycerides Cancelled 02/14/22 02:25 Cholesterol 131 mg/dL (0-200) 02/14/22 02:25 Cholesterol Cancelled 02/14/22 02:25 LDL Cholesterol, Calc 72 mg/dL (50-129) 02/14/22 02:25 LDL Cholesterol, Calc Cancelled 02/14/22 02:25 HDL Cholesterol 37 mg/dL (60-100) L 02/14/22 02:25 HDL Cholesterol Cancelled 02/14/22 02:25 LDL/HDL Ratio 1.95 RATIO (0.00-3.22) 02/14/22 02:25 LDL/HDL Ratio Cancelled 02/14/22 02:25 Cholesterol/HDL Ratio 3.54 mg/dL (1.0-5.00) 02/14/22 02:25 Cholesterol/HDL Ratio Cancelled 02/14/22 02:25 TSH 1.17 uIU/mL (0.27-4.20) 02/13/22 20:22 A&P Assessment and plan (1) Wide-complex tachycardia: The rhythm appears to be in SVT. He has not had any recurrence. May continue on the current medications. Metoprolol 12.5 mg p.o. twice daily (2) Chest pain: Could related to the arrhythmia. Currently on the current measures. (3) Elevated blood pressure reading: Currently normotensive. (4) Elevated troponin: Could be related to the arrhythmia. (5) Near syncope: Most likely from the tachyarrhythmia. Has not had any recurrence. (6) Hyperlipidemia: Patient has longstanding history of dyslipidemia. May continue on the current medications. Plan The other problems are History of GERD Neuropathy If the patient continues remain stable, may be discharged home from a cardiac standpoint Appointment the [facility] to be seen by nurse practitioner next week Appointment with me in the office in 2 months Attestations Medical Necessity Statement*: Possible discharge home today Coding Level of Care Code Acute Car Retarder Operator for Chg Fwd History Expanded Problem Focused Exam Expanded Problem Focused Medical Decision Making Moderate Complexity Diagnoses Wide-complex tachycardia R00.0 Chest pain R07.9 Elevated blood pressure reading R03.0 Elevated troponin R77.8 Near syncope R55 Hyperlipidemia E78.5
--- NOTE | 2022-02-15 11:05 | PC.NURSE ---
discharge instructions given and explained to pt and family.they verb understanding.discharged via w/c to exit.family to drive pt home.
== END 2022-02-15 11:06 | disposition home or self-care (01) | DRG 287 ==
LOC: ER 15:35 → CSU 16:01
PROVIDERS: Family Medicine; Internal Medicine; Internal Medicine Cardiovascular Disease; Admitting Provider Student in an Organized Health Care Education/Training Program; Emergency Provider Emergency Medicine; PCP Emergency Medicine Emergency Medical Services; Visit Provider Student in an Organized Health Care Education/Training Program
PROC: B2111ZZ Fluoroscopy of Multiple Coronary Arteries using Low Osmolar Contrast (ICD-10-PCS; principal; 2022-02-14 10:30)
DX: I47.1 Supraventricular tachycardia (principal); F05 Delirium due to known physiological condition; R07.9 Chest pain, unspecified; R06.02 Shortness of breath; R55 Syncope and collapse; R77.8 Other specified abnormalities of plasma proteins; R00.1 Bradycardia, unspecified; I10 Essential (primary) hypertension; I25.10 Atherosclerotic heart disease of native coronary artery without angina pectoris; E78.5 Hyperlipidemia, unspecified; K21.9 Gastro-esophageal reflux disease without esophagitis; F17.200 Nicotine dependence, unspecified, uncomplicated; Z79.82 Long term (current) use of aspirin
CPT/HCPCS: 36415; 71045; 80048; 80053; 80061; 83036; 83735; 84443; 84484; 85025; 85730; 93005; 93458; 93571; 96365; 96372; 99152; 99153; 99285; C1769; C1887; C1894; C8929; J0282; J1644; J1650; J2250; J3010; J3490; J7030; J7060; Q9956; Q9967

== ENCOUNTER → 2022-02-23 07:40 | Outpatient (BNVA) | payer OTHER, MEDICARE, MEDICAID, SELFPAY | PROVIDERS: PCP Emergency Medicine Emergency Medical Services; Visit Provider Nurse Practitioner Family | DX: I47.20 Ventricular tachycardia, unspecified (principal); I25.10 Atherosclerotic heart disease of native coronary artery without angina pectoris | CPT/HCPCS: 36415; 80048; 99214 ==

== ENCOUNTER 2022-03-30 09:43 | Emergency (ER) | payer OTHER, SELFPAY ==
[2022-03-30] VITALS (19 sets, daily range): BP systolic 132–173; BP diastolic 61–105; PULSE 70–94; RESP 14–24; TEMP 36.9; O2SAT 94–100; BMI 22.4
--- NOTE | 2022-03-30 09:58 | W.ED.CHESTPA ---
HPI - Chest Pain General: Chief Complaint: Chest Pain Stated Complaint: CHEST PAIN Time Seen by Provider: 03/30/22 09:48 History of Present Illness: Patient comes in from clinic with concerns for low blood pressure, tachycardia, and near syncope. Patient was at the dermatology clinic having skin cancer removed from his left cheek when he became lightheaded and dizzy. States he started having some very mild chest pressure and then felt like he was going to pass out. When EMS arrived the patient's blood pressure was low, however it has improved. The patient by the time he got here is now asymptomatic. Denies any chest pain, shortness of breath, or cold symptoms including no fever, nausea, vomiting, diarrhea. Associated symptoms: Deny abdominal pain, dyspnea, fever(s), nausea, palpitations or vomiting Review of Systems Const: Denies: fever(s) or body aches Eyes: Denies: change in vision or blurry vision ENMT: Denies: throat pain or odynophagia Card: Reports: chest pain; Denies: palpitations Resp: Denies: dyspnea or productive cough GI: Denies: abdominal pain, nausea or vomiting : Denies: flank pain or dysuria Musc: Denies: neck pain or back pain Skin/Breast: Denies: rash or pruritus Neuro: Denies: headache(s) or numbness in extremities Psych: Denies: anxiety or change in appetite Endo: Denies: polyuria or excessive sweating PFSH ED PFSH: Medical History Atherosclerosis of coronary artery Hyperlipidemia Neuropathy Surgical History History of PTCA Social History Alcohol intake: former History of recent travel: No Physical Exam Const: COMMON NORMALS: no acute distress, patient oriented x3, healthy appearing and alert HENMT: COMMON NORMALS: normocephalic and atraumatic HEAD & SCALP: normocephalic and atraumatic Eye: COMMON NORMALS: Equal, round and reactive pupils present and EOMs intact bilaterally PUPIL: Yes Equal, round and reactive pupils present Neck/C-Spine: COMMON NORMALS: full ROM and supple Resp: COMMON NORMALS: normal respiratory effort, No retractions and No use of accessory muscles Cardio: COMMON NORMALS: regular rate and regular rhythm RATE: regular rate RHYTHM: regular rhythm GI: COMMON NORMALS: Normal to inspection, nondistended, normoactive bowel sounds present, Soft to palpation and non-tender PALPATION: Yes Soft to palpation Back/Pelvis: COMMON NORMALS: thoracic and lumbar spine normal to inspection and no thoracic nor lumbar tenderness Extremity: COMMON NORMALS: normal to inspection and full ROM Neuro: COMMON NORMALS: patient oriented x3 SENSORIUM/ORIENTATION: Yes alert Psych: COMMON NORMALS: mental status grossly normal and cooperative Skin: COMMON NORMALS: no rashes or lesions noted and no wounds GENERAL SKIN EXAM: no rashes or lesions noted Course Vital Signs: Vital signs: Vital Signs Temperature 98.4 F 03/30/22 09:45 Pulse Rate 79 03/30/22 11:30 Respiratory Rate 16 03/30/22 11:30 Blood Pressure 173/75 03/30/22 11:30 Pulse Oximetry 99 03/30/22 11:30 Oxygen Delivery Me thod 03/30/22 10:11 MDM - Chest Pain Medical Decision Making Patient comes in from clinic with concerns for low blood pressure, tachycardia, and near syncope. Patient was at the dermatology clinic having skin cancer removed from his left cheek when he became lightheaded and dizzy. States he started having some very mild chest pressure and then felt like he was going to pass out. When EMS arrived the patient's blood pressure was low, however it has improved. The patient by the time he got here is now asymptomatic. Denies any chest pain, shortness of breath, or cold symptoms including no fever, nausea, vomiting, diarrhea. Physical exam is unremarkable. Will check EKG, labs, and reassess. On reassessment I talked to the patient about the test results. he continues to be asymptomatic. Will discharge home at this time with precautions to return for worsening or changing symptoms. Lab Data 03/30/22 10:24 03/30/22 10:24 Laboratory Results WBC 4.4 10^3/uL (4.0-10.0) 03/30/22 10:24 RBC 4.99 10^6/uL (4.1-5.3) 03/30/22 10:24 Hgb 15.5 g/dL (11.7-16.6) 03/30/22 10:24 Hct 48.2 % (42.0-52.0) 03/30/22 10:24 MCV 96.6 fl (80-94) H 03/30/22 10:24 MCH 31.1 pg (28.0-34.0) 03/30/22 10:24 MCHC 32.2 g/dL (30.0-36.0) 03/30/22 10:24 RDW 13.1 % (12.1-15.1) 03/30/22 10:24 Plt Count 163 10^3/cmm (130-400) 03/30/22 10:24 MPV 9.7 fL (7.4-10.4) 03/30/22 10:24 Neut % (Auto) 62.7 % 03/30/22 10:24 Lymph % (Auto) 23.4 % 03/30/22 10:24 [place] % (Auto) 9.9 % 03/30/22 10:24 Eos % (Auto) 2.9 % 03/30/22 10:24 Baso % (Auto) 0.9 % 03/30/22 10:24 Neut # (Auto) 2.78 10^3/uL (1.8-7.7) 03/30/22 10:24 Lymph # (Auto) 1.0 10^3/uL (0.8-4.8) 03/30/22 10:24 [place] # (Auto) 0.4 10^3/uL (0.2-0.9) 03/30/22 10:24 Eos # (Auto) 0.1 10^3/uL (0.0-0.8) 03/30/22 10:24 Baso # (Auto) 0.0 10^3/uL (0.0-0.1) 03/30/22 10:24 Nucleated RBC % (auto) 0 % 03/30/22 10:24 Nucleated RBCs # 0.0 /100WBC 03/30/22 10:24 Sodium 136 mmol/L (136-145) 03/30/22 10:24 Potassium 4.5 mmol/L (3.5-5.1) 03/30/22 10:24 Chloride 99 mmol/L (98-107) 03/30/22 10:24 Carbon Dioxide 28 mmol/L (22-29) 03/30/22 10:24 Anion Gap 13.5 (5-19) 03/30/22 10:24 BUN 13 mg/dL (8-23) 03/30/22 10:24 Creatinine 1.0 mg/dL (0.7-1.2) 03/30/22 10:24 GFR Calculation Not Reportable 03/30/22 10:24 Glucose 108 mg/dL (65-115) 03/30/22 10:24 Calculated Osmolality 283 mOsm/kg (285-295) L 03/30/22 10:24 Calcium 9.5 mg/dL (8.5-10.5) 03/30/22 10:24 Total Bilirubin 0.6 mg/dL (0.15-1.2) 03/30/22 10:24 AST 16 U/L (0-40) 03/30/22 10:24 ALT 11 U/L (0-41) 03/30/22 10:24 Alkaline Phosphatase 62 U/L (40-130) 03/30/22 10:24 Troponin T Baseline 27 ng/L (0-15) H 03/30/22 10:24 Total Protein 6.5 g/dL (6.6-8.7) L 03/30/22 10:24 Albumin 4.3 g/dL (3.5-5.2) 03/30/22 10:24 Globulin 2.2 g/dL (1.3-4.6) 03/30/22 10:24 Discharge Plan Discharge Patient Disposition: Home Clinical Impression: Near syncope Condition: Stable Prescriptions: No Action famotidine 20 mg tablet 20 mg PO BID aspirin 81 mg tablet,delayed release (DR/EC) 81 mg PO DAILY simvastatin 80 mg tablet 80 mg PO QPM trazodone 50 mg tablet 25 mg PO BEDTIME cholecalciferol (vitamin D3) 25 mcg (1,000 unit) capsule 25 mcg PO DAILY imiquimod 5 % cream in packet 1 applic topical ONCE Qty: 24 1RF Rx Instructions: Apply thin film Wednesday-Wednesday ( Off weekends) for 6 weeks. metoprolol tartrate 25 mg tablet 12.5 mg PO BID Discharge Orders: Discharge ED (Routine); Ordered 03/30/22 Ordered By: Jaswant Soriano Referrals: Mendoza Forman, DO [Primary Care Provider] - Patient Instructions: Near Syncope (ED) Coding Level of Care Code ED Facility Technician for Chg Shawn
[2022-03-30 10:31] LABS: Basophils % 0.9 %; Eosinophils # 0.1 10^3/uL (0.0-0.8); Eosinophils % 2.9 %; Hematocrit 48.2 % (42.0-52.0); Hemoglobin 15.5 g/dL (11.7-16.6); Lymphocytes % 23.4 %; Mean Corpuscular HGB Conc 32.2 g/dL (30.0-36.0); Mean Corpuscular Hemoglobin 31.1 pg (28.0-34.0); Mean Corpuscular Volume 96.6 fl (80-94); Mean Platelet Volume 9.7 fL (7.4-10.4); Monocytes # 0.4 10^3/uL (0.2-0.9); Monocytes % 9.9 %; Neutrophils # 2.78 10^3/uL (1.8-7.7); Neutrophils % 62.7 %; Nucleated Red Blood Cells % 0 %; Platelet Count 163 10^3/cmm (130-400); Red Blood Count 4.99 10^6/uL (4.1-5.3); Red Cell Distribution Width 13.1 % (12.1-15.1); White Blood Count 4.4 10^3/uL (4.0-10.0)
[2022-03-30 10:50] LABS: Alanine Aminotransferase 11 U/L (0-41); Albumin Level 4.3 g/dL (3.5-5.2); Alkaline Phosphatase 62 U/L (40-130); Anion Gap 13.5 (5-19); Aspartate Amino Transferase 16 U/L (0-40); Blood Urea Nitrogen 13 mg/dL (8-23); Calcium 9.5 mg/dL (8.5-10.5); Carbon Dioxide 28 mmol/L (22-29); Chloride 99 mmol/L (98-107); Globulin 2.2 g/dL (1.3-4.6); Glucose 108 mg/dL (65-115); Osmolality Calculated 283 mOsm/kg (285-295); Potassium 4.5 mmol/L (3.5-5.1); Sodium 136 mmol/L (136-145); Total Bilirubin 0.6 mg/dL (0.15-1.2); Total Protein 6.5 g/dL (6.6-8.7)
[2022-03-30 10:53] LABS: Troponin(5th) Baseline 27 ng/L (0-15)
--- NOTE | 2022-03-30 11:05 | ECG_ITS ---
[facility] Test Date: 2022-03-30 Pat Name: Meeta Hurst Department: Room: Gender: Male Service Assistant: : 1940 Requested By: Jaswant Soriano Order Number: [id number] Monique MD: Casey Chirinos M.D. Measurements Intervals [place] Rate: 74 P: 81 VA: 193 QRS: 263 QRSD: 137 T: 65 QT: 392 QTc: 436 Interpretive Statements SINUS RHYTHM RIGHT AXIS DEVIATION [QRS AXIS > 100] RIGHT BUNDLE BRANCH BLOCK [120+ ms QRS DURATION, UPRIGHT V1, 40+ ms S IN I/aVL/V4/V5/V6] Compared to ECG 02/14/2022 02:09:44 Right-axis deviation now present Sinus bradycardia no longer present Left anterior fascicular block no longer present Electronically Signed On 03-30-2022 11:19:19 SPREAD CUTTER by Casey Chirinos M.D. [id number]
--- NOTE | 2022-03-30 11:29 | ECG_ITS ---
[facility] Test Date: 2022-03-30 Pat Name: Meeta Hurst Department: Room: Gender: Male Disc Inspector: : 1940 Requested By: aJswant Soriano Order Number: [id number] Monique MD: Yao Roblero M.D. Measurements Intervals [place] Rate: 75 P: 85 MA: 193 QRS: 267 QRSD: 137 T: 70 QT: 375 QTc: 420 Interpretive Statements SINUS RHYTHM RIGHT AXIS DEVIATION [QRS AXIS > 100] RIGHT BUNDLE BRANCH BLOCK [120+ ms QRS DURATION, UPRIGHT V1, 40+ ms S IN I/aVL/V4/V5/V6] Compared to ECG 03/30/2022 11:05:01 No significant changes Electronically Signed On 03-30-2022 14:39:00 [employer]F [employer] FACER by Yao Roblero M.D. [id number]
== END 2022-03-30 12:13 | disposition home or self-care (01) ==
PROVIDERS: Emergency Provider Emergency Medicine; PCP Emergency Medicine Emergency Medical Services
DX: R55 Syncope and collapse (principal); Z79.82 Long term (current) use of aspirin; I25.10 Atherosclerotic heart disease of native coronary artery without angina pectoris; E78.5 Hyperlipidemia, unspecified
CPT/HCPCS: 80053; 84484; 85025; 93005; 99284

== ENCOUNTER → 2022-05-04 09:32 | Outpatient (BNVA) | payer OTHER, SELFPAY | PROVIDERS: PCP Emergency Medicine Emergency Medical Services; Visit Provider Internal Medicine Cardiovascular Disease | DX: I25.10 Atherosclerotic heart disease of native coronary artery without angina pectoris (principal); R03.0 Elevated blood-pressure reading, without diagnosis of hypertension; R00.0 Tachycardia, unspecified; E78.5 Hyperlipidemia, unspecified; Z79.82 Long term (current) use of aspirin | CPT/HCPCS: 99214 ==

== ENCOUNTER → 2022-06-15 12:42 | Outpatient (BNVA) | payer OTHER, SELFPAY | PROVIDERS: PCP Emergency Medicine Emergency Medical Services; Visit Provider Dermatology | DX: D04.61 Carcinoma in situ of skin of right upper limb, including shoulder (principal); L57.0 Actinic keratosis; C44.629 Squamous cell carcinoma of skin of left upper limb, including shoulder; B07.8 Other viral warts; L28.1 Prurigo nodularis; Z85.828 Personal history of other malignant neoplasm of skin | CPT/HCPCS: 11102; 17000; 17003; 17110; 99213 ==

== ENCOUNTER → 2022-07-01 08:24 | Outpatient (BNVA) | payer OTHER, SELFPAY | PROVIDERS: PCP Emergency Medicine Emergency Medical Services; Visit Provider Dermatology | DX: C44.629 Squamous cell carcinoma of skin of left upper limb, including shoulder (principal) | CPT/HCPCS: 11603; 12032 ==

== ENCOUNTER 2022-09-05 09:40 | Emergency (ER) | payer OTHER, SELFPAY ==
[2022-09-05 09:58] VITALS: BP 178/68; PULSE 68; RESP 17; O2SAT 97
--- NOTE | 2022-09-05 10:06 | XRR_ITS ---
PROCEDURE INFORMATION: Exam: XR Bilateral Hips Exam date and time: 09/05/2022 10:24 AM Age: 81 years old Clinical indication: Pelvic pain; Additional info: Groin pain, HX of arthritis TECHNIQUE: Imaging protocol: Radiologic exam of the bilateral hips. Views: 2 views of hips with pelvis when performed. COMPARISON: No relevant prior studies available. FINDINGS: Bones/joints: Mild bilateral hip joint space narrowing without significant osteophytic formation. No fracture or dislocation identified. Soft tissues: Unremarkable. XR/XR hip BI 3-4V wo/w pel [id number] IMPRESSION: Mild degenerative changes in the hip joints.
--- NOTE | 2022-09-05 10:08 | ED_ITS ---
HPI - Extremity Problem General: Chief complaint: Extremity Problem,Nontraumatic Stated complaint: Sharp and quick Pain in right leg Time Seen by Provider: 09/05/22 09:52 History of Present Illness: Patient is a 89-year-old man that presents to the emergency department with right groin pain. Patient says the pain is intermittent and sharp in nature Patient is ambulatory with a cane at baseline. He states he is still able to ambulate without difficulty He denies any falls or injuries He reports a history of arthritis and similar pain during those flares Associated symptoms: Deny chest pain, fever(s) or rash Review of Systems General: Reports: 10 or more systems reviewed and unremarkable except in HPI and below Const: Denies: fever(s), chills, change in appetite, change in weight, fatigue or malaise Eyes: Denies: change in vision, eye discomfort, eye discharge or eye redness ENMT: Denies: throat pain, enlarged tonsils, odynophagia, hoarseness, ear or mastoid pain, ear discharge, change in hearing, tinnitus, nasal discharge, nasal congestion, post nasal drip or sinus pain Card: Denies: chest pain, palpitations, irregular heart rhythm, edema, dyspnea on exertion, orthopnea or leg pain with exertion Resp: Reports: productive cough (Unchanged from baseline); Denies: dyspnea, non-productive cough, wheezing, stridor or chest congestion GI: Denies: abdominal pain, nausea, vomiting, dysphagia, diarrhea, constipation, bloating, GI cramping or hematochezia : Denies: flank pain, dysuria, urinary frequency, urinary urgency, urinary hesitancy, oliguria or hematuria Musc: Reports: extremity pain; Denies: neck pain, back pain, joint pain, joint swelling, joint redness, joint warmth or muscle weakness Skin/Breast: Denies: rash, pruritus, erythema, photosensitivity or new lesions Neuro: Denies: headache(s), numbness in extremities, weakness in extremities, sensory changes, lack of coordination, difficulty walking, frequent falls, dizziness, confusion, Slurred speech present, difficulty communicating thoughts, seizure-like activity or involuntary movements Endo: Denies: polyuria, polydipsia or tired all the time Travis/Lymph: Denies: easy bruising or easy bleeding PFS ED PFSH: Medical History Atherosclerosis of coronary artery Hyperlipidemia Neuropathy Surgical History History of PTCA Social History Alcohol intake: former Substance/Drug Use: never Physical Exam Const: COMMON NORMALS: no acute distress, patient oriented x3 and alert GENERAL APPEARANCE: cooperative ORIENTATION/CONSCIOUSNESS: Yes awake, Yes oriented to person, Yes oriented to place and Yes oriented to time HENMT: COMMON NORMALS: normocephalic and atraumatic HEAD & SCALP: normocephalic and atraumatic FACE & SINUS: normal facial exam MOUTH: Normal oral and palatal mucosa present THROAT: posterior oropharynx normal Eye: COMMON NORMALS: Equal, round and reactive pupils present, EOMs intact bilaterally, conjunctivae normal and no scleral icterus GENERAL EYE: appearance normal, both eyes and all related structures ALIGNMENT: Yes alignment normal PERIORBITAL: periorbital findings normal CONJUNCTIVA: Yes conjunctivae normal PUPIL: Yes Equal, round and reactive pupils present Neck/C-Spine: COMMON NORMALS: full ROM GENERAL: Yes normal visual inspection Lymph: LYMPHATIC: no lymphadenopathy noted Chest: COMMONS NORMALS: normal inspection of the chest Breast/axilla inspection: Yes no chest deformity, asymmetry, normal contours, no nodules, masses, tenderness Resp: COMMON NORMALS: normal respiratory effort, No retractions and No use of accessory muscles EFFORT & INSPECTION: Yes able to speak in complete sentences and Yes symmetric chest movement AUSCULTATION: rhonchi Cardio: COMMON NORMALS: regular rate, regular rhythm and Peripheral pulses 2+ throughout RATE: regular rate RHYTHM: regular rhythm PERIPHERAL PULSES: Peripheral pulses 2+ throughout GI: COMMON NORMALS: Normal to inspection, nondistended, normoactive bowel sounds present, Soft to palpation, non-tender and No hepatosplenomegaly present INSPECTION: Yes normal to inspection AUSCULTATION: Yes normoactive bowel sounds PALPATION: Yes Soft to palpation and Yes No hepatosplenomegaly present RECTAL EXAM: Yes deferred Extremity: COMMON NORMALS: normal to inspection NARRATIVE EXTREMITY EXAM: Right lower extremity: Intermittent sharp pain in the groin Tender to palpation Full active range of motion Patient is able to flex and extend the hip and knee fully Patient is able to dorsiflex plantarflex the foot Patient is able to dorsiflex great toe Sensation intact light touch at medial, lateral, dorsal, plantar surface of the foot and first webspace DP pulses palpable and cap refills less than 3-second GENERAL: Yes normal exam except as noted Neuro: COMMON NORMALS: patient oriented x3 SENSORIUM/ORIENTATION: Yes alert, Yes oriented to person, Yes oriented to place and Yes oriented to time CRANIAL NERVES: Yes CN normal except as noted Psych: COMMON NORMALS: mental status grossly normal, Normal thought process present, cooperative, activity/motor behavior normal, denies homicidal ideation and denies suicidal ideation THOUGHT PROCESS: Normal thought process present Skin: COMMON NORMALS: no rashes or lesions noted, no wounds and turgor normal GENERAL SKIN EXAM: no rashes or lesions noted and turgor normal Course Vital Signs: Vital signs: Vital Signs Pulse Rate 68 09/05/22 09:58 Respiratory Rate 17 09/05/22 09:58 Blood Pressure 178/68 09/05/22 09:58 Pulse Oximetry 97 09/05/22 09:58 Oxygen Delivery Me thod Room Air 09/05/22 09:58 MDM - Extremity (Nontraumatic) Medical Decision Making Patient underwent XR imaging for the bilateral hips and pelvis which revealed degenerative changes but no fractures or dislocations. I had a long discussion about whether or not this could be coming from his lumbar spine as well. He is hurting in his right groin which would be consistent with a L2 radiculopathy however we do not have any imaging and patient declines any further imaging. Patient was treated with 10 mg of ketorolac which did not seem to have any significant change on his pain. He is going to take Tylenol at home. He is going to follow-up with his primary care doctor for further discussion and further diagnostics if warranted. Patient is to return to the emergency department for new concerning or worsening symptoms. Lab Data Radiology Impressions Hip/Pelvis X-Ray 09/05/22 10:06 IMPRESSION: Mild degenerative changes in the hip joints. Discharge Plan Discharge Patient Disposition: Home Clinical Impression: Acute hip pain, Osteoarthritis Condition: Stable Prescriptions: No Action famotidine 20 mg tablet 20 mg PO BID aspirin 81 mg tablet,delayed release (DR/EC) 81 mg PO DAILY simvastatin 80 mg tablet 80 mg PO QPM trazodone 50 mg tablet 25 mg PO BEDTIME cholecalciferol (vitamin D3) 25 mcg (1,000 unit) capsule 25 mcg PO DAILY imiquimod 5 % cream in packet 1 applic topical ONCE Qty: 24 1RF Rx Instructions: Apply thin film Wednesday-Wednesday ( Off weekends) for 6 weeks. metoprolol tartrate 25 mg tablet 12.5 mg PO BID Aleve 220 mg Capsule 220 mg PO Q12H PRN (Reason: Pain) Discharge Orders: Discharge ED (Routine); Ordered 09/05/22 Ordered By: Dionisio Gibbs Referrals: Mendoza Forman DO [Primary Care Provider] - Discharge Diet: Advance as tolerated Discharge Activity: Resume usual activity Patient Instructions: Hip Pain (ED), Pain Management Activity Restrictions/Additional Instructions: Please return to the emergency department for new concerning or worsening symptom Coding Level of Care Code ED Military Communications Specialist for Dieter Escobar
[2022-09-05] MEDS: ketorolac 10 mg Tablet PO (10:12)
== END 2022-09-05 12:45 | disposition home or self-care (01) ==
PROVIDERS: Emergency Provider Nurse Practitioner; PCP Emergency Medicine Emergency Medical Services
DX: M16.0 Bilateral primary osteoarthritis of hip (principal); Z79.82 Long term (current) use of aspirin; I25.10 Atherosclerotic heart disease of native coronary artery without angina pectoris; E78.5 Hyperlipidemia, unspecified
CPT/HCPCS: 73522; 99283

== ENCOUNTER 2022-09-16 10:41 | Emergency (ER) | payer OTHER, SELFPAY ==
[2022-09-16 11:12] VITALS: BP 126/74; PULSE 66; RESP 15; TEMP 36.4; O2SAT 95
--- NOTE | 2022-09-16 11:58 | W.ED.BACK ---
HPI - Back Pain/Injury General: Chief Complaint: Back Pain/Injury Stated Complaint: abd pain/back Time Seen by Provider: 09/16/22 11:58 History of Present Illness: Mr. Hurst is an 81-year-old gentleman presenting to the emergency department for back injury and pain. He reports that he was mowing earlier and the mower got stuck with the back wheel. He leaned down and picked up the back to give it a shelve out of the hole and immediately had pain and heard a popping in the middle of his back. He was brought down to his knees and felt like he could not move for a number of minutes. Currently just endorses aching pain which is moderate to severe in intensity. Denies radiation down either leg. No weakness associated with it. No loss of bowel or bladder control or saddle anesthesia. No other specific changes in health, exacerbating, or alleviating factors identified. Onset (ago): hour(s) Severity: moderate Quality: aching Exacerbating factors: movement Review of Systems General: Reports: 10 or more systems reviewed and unremarkable except in HPI and below PFSH ED PFSH: Medical History Atherosclerosis of coronary artery Hyperlipidemia Neuropathy Surgical History History of PTCA Social History Alcohol intake: former Substance/Drug Use: never Physical Exam Const: COMMON NORMALS: alert GENERAL APPEARANCE: cooperative and well developed HENMT: COMMON NORMALS: normocephalic and atraumatic HEAD & SCALP: normocephalic and atraumatic Eye: COMMON NORMALS: conjunctivae normal CONJUNCTIVA: Yes conjunctivae normal SCLERA: sclerae normal Neck/C-Spine: COMMON NORMALS: supple GENERAL: Yes trachea midline Resp: COMMON NORMALS: normal respiratory effort EFFORT & INSPECTION: Yes able to speak in complete sentences Cardio: COMMON NORMALS: regular rate and regular rhythm RATE: regular rate RHYTHM: regular rhythm GI: COMMON NORMALS: Soft to palpation PALPATION: Yes Soft to palpation and No Tenderness to palpation present (GI) Back/Pelvis: OTHER: Mid to lower lumbar tenderness to palpation. Extremity: GENERAL: Yes normal exam except as noted and No edema Neuro: COMMON NORMALS: moves all extremities, no focal motor deficits and no sensory deficits noted SENSORIUM/ORIENTATION: Yes alert and No Orientation impaired Psych: COMMON NORMALS: mental status grossly normal and Normal thought process present THOUGHT PROCESS: Normal thought process present Course Vital Signs: Vital signs: Vital Signs Temperature 97.6 F 09/16/22 11:12 Pulse Rate 66 09/16/22 11:12 Respiratory Rate 15 09/16/22 11:12 Blood Pressure 126/74 09/16/22 11:12 Pulse Oximetry 95 09/16/22 11:12 Oxygen Delivery Me thod Room Air 09/16/22 11:12 MDM - Back Pain/Injury Medical Decision Making 81-year-old gentleman presenting with back pain post lifting injury. Exam as above. Given provided clinical history and exam there is no indication for imaging at this time. Lumbar spine imaging reveals no acute fracture or significant high-grade stenosis. Improved with multimodal approach to analgesia and able to ambulate. The results of ED evaluation were discussed with the patient including prescriptions and/or symptomatic cares (if applicable) including appropriate and responsible use, followup plan, and return precautions. The patient verbalized understanding and felt safe for discharge. Medical Records I reviewed the patient's medical records. Labs I reviewed the patient's lab results. Radiology Impressions Lumbar Spine CT 09/16/22 12:40 IMPRESSION: 1. No significant high-grade central or foraminal stenosis. 2. No lumbar spine fractures. 3. Mild bilateral subarticular recess and foraminal stenosis at L3-4. 4. Mild central, bilateral subarticular recess and foraminal stenosis at L4-5. Discharge Plan Discharge Patient Disposition: Home Clinical Impression: Low back pain, Degenerative disc disease, lumbar Condition: Stable Prescriptions: New cyclobenzaprine 5 mg tablet 5 mg PO TID PRN (Reason: muscle spasm) Qty: 30 0RF No Action famotidine 20 mg tablet 20 mg PO BID aspirin 81 mg tablet,delayed release (DR/EC) 81 mg PO DAILY simvastatin 80 mg tablet 80 mg PO QPM trazodone 50 mg tablet 25 mg PO BEDTIME cholecalciferol (vitamin D3) 25 mcg (1,000 unit) capsule 25 mcg PO DAILY imiquimod 5 % cream in packet 1 applic topical ONCE Qty: 24 1RF Rx Instructions: Apply thin film Wednesday-Wednesday ( Off weekends) for 6 weeks. metoprolol tartrate 25 mg tablet 12.5 mg PO BID Aleve 220 mg Capsule 220 mg PO Q12H PRN (Reason: Pain) hydrocodone-acetaminophen 5-325 mg tablet 1 tab PO Q6H PRN (Reason: pain) Qty: 14 0RF Discharge Orders: Discharge ED (Routine); Ordered 09/16/22 Ordered By: Jose Sanches Referrals: Mendoza Forman, DO [Primary Care Provider] - Discharge Diet: Usual diet Discharge Activity: Increase activity as tolerated Patient Instructions: Acute Low Back Pain (ED), Opioid Safety Activity Restrictions/Additional Instructions: Thank you for visiting the emergency department. You were seen and evaluated for back pain/injury. No broken bones were identified on CT scan. Likely the cause of your symptoms is exacerbation of underlying degenerative changes. We are pleased that you had improvement with treatment in the emergency department. I will prescribe a muscle relaxer. You may use [id number] medications such as acetaminophen and ibuprofen for pain however please do not exceed the daily recommended dosage as listed on the packaging and please keep in mind that many namebrand medications contain the same active ingredients. Please avoid these medications if previously instructed to do so by another physician due to other underlying medical condition. If using NSAIDs such as ibuprofen or Aleve for more than 1 day please ensure that you are also taking a proton pump inhibitor or H2 teofilo which can be purchased [id number] for gastric protection. Follow-up with your primary care provider. Return for uncontrolled pain, any new neurologic symptoms as discussed, or anything that you are concerned about and feel needs emergency department evaluation. Coding Level of Care Code ED Rough And Trueing Machine Operator for Dieter Escobar
--- NOTE | 2022-09-16 12:40 | CT_ITS ---
WS: [id number] CT LUMBAR SPINE, noncontrast. HISTORY: lifting injury TECHNIQUE: Contiguous 2.0 mm axial imaging are performed. Sagittal and coronal reformats are submitte d and reviewed. [facility] CT [facility] use at least one of these dose optimization techni ques: automated exposure control; mA and/or kV adjustment per patient size (includes targeted exams w here dose is matched to clinical indication); or iterative reconstruction. IV contrast: None DLP: 740.40 mGy.cm COMPARISON: None available. Posterior lumbar alignment is normal. No lumbar vertebral body fractures. Disc spaces are well mainta ined. L1-2: Normal. L2-3: Mild annular disc bulging. No stenosis. L3-4: Diffuse moderate annular disc bulging with ligamentum flavum and facet arthritis. Very mild sub articular recess and foraminal stenosis. L4-5: Diffuse annular disc bulging, facet joint arthritis and ligamentum flavum arthritis. Mild encro achment upon the ventral thecal sac. Mild central, bilateral subarticular recess and foraminal stenos is. L5-S1: Bilateral facet joint arthritis. Mild foraminal narrowing. Bilateral SI joint narrowing. Extensive atherosclerotic plaque within the aorta. Nonobstructing calci fications in each kidney. CT/CT lumbar spine wo con* [id number] IMPRESSION: 1. No significant high-grade central or foraminal stenosis. 2. No lumbar spine fractures. 3. Mild bilateral subarticular recess and foraminal stenosis at L3-4. 4. Mild central, bilateral subarticular recess and foraminal stenosis at L4-5.
[2022-09-16] MEDS: acetaminophen 500 mg Tablet 1000 MG PO (12:42)
[2022-09-16] MEDS: cyclobenzaprine 10 mg Tablet 5 MG PO (12:42)
[2022-09-16] MEDS: morphine 4 mg/mL SDV 1 mL IM (12:44)
[2022-09-16] MEDS: ketorolac 30 mg/mL INJ 15 MG IM (12:46)
== END 2022-09-16 14:18 | disposition home or self-care (01) ==
PROVIDERS: Emergency Provider Emergency Medicine; PCP Emergency Medicine Emergency Medical Services
DX: M51.36 Other intervertebral disc degeneration, lumbar region (principal); Z79.82 Long term (current) use of aspirin; I25.10 Atherosclerotic heart disease of native coronary artery without angina pectoris; E78.5 Hyperlipidemia, unspecified
CPT/HCPCS: 72131; 96372; 99284; J1885; J2270

== ENCOUNTER 2022-09-21 13:12 | Emergency (ER) | payer OTHER, SELFPAY ==
[2022-09-21 13:16] VITALS: BP 126/66; PULSE 110; RESP 16; TEMP 36.4; O2SAT 94; BMI 23.0
--- NOTE | 2022-09-21 14:26 | W.ED.BACK ---
HPI - Back Pain/Injury General: Chief Complaint: Back Pain/Injury Stated Complaint: back pain Time Seen by Provider: 09/21/22 14:23 Source: patient and family Mode of arrival: ambulatory Limitations: no limitations History of Present Illness: Patient is a very nice 81-year-old male who presents to ED today with a complaint of lower back pain that began approximately 6 days ago. He states he was lifting something heavy when he heard a snap in his lower back and has been experiencing fairly significant pain since then. Patient was seen the day after here in the emergency department had a lumbar CT performed which showed: CT/CT lumbar spine wo con* [id number] IMPRESSION: ? 1.? No significant high-grade central or foraminal stenosis. 2.? No lumbar spine fractures. 3.? Mild bilateral subarticular recess and foraminal stenosis at L3-4. 4.? Mild central, bilateral subarticular recess and foraminal stenosis at L4-5. Patient was subsequently discharged home with cyclobenzaprine which she states has not been helping. He states he has been taking Aleve and tells me it does help and then later tells me it only brings his pain down from a 14/10 to a 12/10. Patient is not having any radicular symptoms into his lower extremities. He has not noticed any color or temperature changes to his legs. Patient is not having any pain that radiates into his abdomen. Back pain is worse with movement. MD elicited complaint: back pain Pertinent past history: recent trauma Onset (ago): day(s) Timing: constant Severity: severe Similar Symptoms Previously: No Quality: aching Location: lumbar spine, right lower back and left lower back Radiation: none Exacerbating factors: movement Relieving factors: other (aleve) Context: while lifting Associated symptoms: Reports no associated symptoms; Deny abdominal pain, chills, dysuria, fatigue, fever(s) or hematuria Work related injury: No Review of Systems Const: Denies: fever(s), chills, body aches, fatigue or malaise Card: Denies: chest pain Resp: Denies: dyspnea GI: Denies: abdominal pain : Denies: flank pain, dysuria or hematuria Musc: Reports: back pain; Denies: neck pain, extremity pain, extremity swelling, joint pain or joint swelling Skin/Breast: Denies: rash Neuro: Denies: headache(s), numbness in extremities, weakness in extremities, sensory changes or dizziness PFSH ED PFSH: Medical History Atherosclerosis of coronary artery Hyperlipidemia Neuropathy Surgical History History of PTCA Social History Alcohol intake: former Substance/Drug Use: never Physical Exam Const: COMMON NORMALS: no acute distress, average body habitus, patient oriented x3, no limitations, healthy appearing, alert and well nourished Resp: COMMON NORMALS: normal respiratory effort and clear to auscultation bilaterally AUSCULTATION: clear to auscultation bilaterally Cardio: COMMON NORMALS: regular rate and regular rhythm RATE: regular rate RHYTHM: regular rhythm GI: COMMON NORMALS: Normal to inspection, nondistended, normoactive bowel sounds present, Soft to palpation, non-tender, No hepatosplenomegaly present and no masses INSPECTION: Yes normal to inspection and No visible pulsation PALPATION: Yes Soft to palpation and Yes No hepatosplenomegaly present : COMMON NORMALS: Yes no CVA tenderness BLADDER/KIDNEY EXAM: Yes no CVA tenderness Back/Pelvis: COMMON NORMALS: no CVA tenderness, thoracic and lumbar spine normal to inspection, no thoracic nor lumbar tenderness and thoraco-lumbar ROM normal THORACIC SPINE/UPPER BACK: Yes normal to inspection, Yes thoracic ROM normal, No thoracic spinal tenderness, No paraspinal muscle tenderness and No paraspinal muscle spasm LUMBAR SPINE/LOWER BACK: Yes normal to inspection, Yes lumbar ROM normal, Yes pain with ROM, No lumbar spinal tenderness, Yes paraspinal muscle tenderness, No paraspinal muscle spasm, No mass present and Yes straight leg raise negative bilaterally PELVIS: Yes buttocks normal SACROILIAC JOINTS: Yes SI joints normal SACRUM: no tenderness COCCYX: no tenderness Extremity: COMMON NORMALS: normal to inspection and full ROM NARRATIVE EXTREMITY EXAM: bilateral LEs pulses present and equal bilaterally; sensory normal GENERAL: Yes normal exam except as noted Neuro: COMMON NORMALS: patient oriented x3, moves all extremities, no focal motor deficits, no sensory deficits noted and gait normal SENSORIUM/ORIENTATION: Yes alert GAIT: Yes Normal gait present MOTOR EXAM: 5/5 motor strength present throughout Skin: COMMON NORMALS: no rashes or lesions noted GENERAL SKIN EXAM: no rashes or lesions noted Course Vital Signs: Vital signs: Vital Signs Temperature 97.6 F 09/21/22 13:16 Pulse Rate 95 09/21/22 15:23 Respiratory Rate 18 09/21/22 15:23 Blood Pressure 126/66 09/21/22 15:23 Pulse Oximetry 96 09/21/22 15:23 Oxygen Delivery Me thod Room Air 09/21/22 13:16 MDM - Back Pain/Injury Medical Decision Making Patient has no acute neurologic deficits on examination. History/exam is not concerning for aneurysm or dissection. Patient is already underwent CT imaging on his last visit 5 days ago. Recommend patient continue to take the Aleve. We will prescribe him a small amount of pain medications that he can take sparingly for severe pain and will place him on a 5-day course of steroids. Recommend follow-up with his primary care this week if symptoms do not seem to be improving. Discharge Plan Discharge Patient Disposition: Home Clinical Impression: Injury of low back Qualifiers: Encounter type: initial encounter Qualified Code(s): S39.92XA - Unspecified injury of lower back, initial encounter Condition: Stable Prescriptions: New hydrocodone-acetaminophen 5-325 mg tablet 1 tab PO Q6H PRN (Reason: pain) Qty: 14 0RF prednisone 10 mg tablet 40 mg PO DAILY 5 Days Qty: 20 0RF No Action famotidine 20 mg tablet 20 mg PO BID aspirin 81 mg tablet,delayed release (DR/EC) 81 mg PO DAILY simvastatin 80 mg tablet 80 mg PO QPM trazodone 50 mg tablet 25 mg PO BEDTIME cholecalciferol (vitamin D3) 25 mcg (1,000 unit) capsule 25 mcg PO DAILY imiquimod 5 % cream in packet 1 applic topical ONCE Qty: 24 1RF Rx Instructions: Apply thin film Wednesday-Wednesday ( Off weekends) for 6 weeks. metoprolol tartrate 25 mg tablet 12.5 mg PO BID Aleve 220 mg Capsule 220 mg PO Q12H PRN (Reason: Pain) cyclobenzaprine 5 mg tablet 5 mg PO TID PRN (Reason: muscle spasm) Qty: 30 0RF Discharge Orders: Discharge ED (Routine); Ordered 09/21/22 Ordered By: Bria Olguin Referrals: Mendoza Forman, [Primary Care Provider] - Patient Instructions: Opioid Safety, Pain Management Coding Level of Care Code ED Senior Structural Engineer for Dieter Escobar
[2022-09-21] MEDS: morphine 4 mg/mL SDV 1 mL IM (15:17)
[2022-09-21 15:23] VITALS: BP 126/66; PULSE 95; RESP 18; O2SAT 96
== END 2022-09-21 15:24 | disposition home or self-care (01) ==
PROVIDERS: Emergency Provider Physician Assistant; PCP Emergency Medicine Emergency Medical Services
DX: S39.92XA Unspecified injury of lower back, initial encounter (principal); Z79.82 Long term (current) use of aspirin; I25.10 Atherosclerotic heart disease of native coronary artery without angina pectoris; E78.5 Hyperlipidemia, unspecified; X50.0XXA Overexertion from strenuous movement or load, initial encounter
CPT/HCPCS: 96372; 99284; J2270

== ENCOUNTER → 2022-11-02 09:54 | Outpatient (BNVA) | payer OTHER, SELFPAY | PROVIDERS: PCP Emergency Medicine Emergency Medical Services; Visit Provider Nurse Practitioner Family | DX: L57.0 Actinic keratosis (principal); L81.4 Other melanin hyperpigmentation; L81.2 Freckles; Z85.828 Personal history of other malignant neoplasm of skin | CPT/HCPCS: 17000; 99213 ==

== ENCOUNTER → 2022-11-03 14:51 | Outpatient (BNVA) | payer OTHER, SELFPAY | PROVIDERS: PCP Emergency Medicine Emergency Medical Services; Visit Provider Internal Medicine Cardiovascular Disease | DX: I25.10 Atherosclerotic heart disease of native coronary artery without angina pectoris (principal); E78.5 Hyperlipidemia, unspecified; R03.0 Elevated blood-pressure reading, without diagnosis of hypertension; R00.0 Tachycardia, unspecified | CPT/HCPCS: 99214 ==

== ENCOUNTER → 2023-02-01 10:43 | Outpatient (BNVA) | payer OTHER, SELFPAY | PROVIDERS: PCP Emergency Medicine Emergency Medical Services; Referring Provider Nurse Practitioner; Visit Provider Specialist | DX: M19.011 Primary osteoarthritis, right shoulder (principal); M25.511 Pain in right shoulder | CPT/HCPCS: 20610; 73030; 99204; J1100; J2795; J3301 ==

== ENCOUNTER 2023-04-14 15:48 | Day surgery (SDC) | payer OTHER, SELFPAY ==
[2023-04-14] VITALS (11 sets, daily range): BP systolic 97–168; BP diastolic 58–78; PULSE 64–86; RESP 14–18; TEMP 36.3; O2SAT 93–98; BMI 21.7
--- NOTE | 2023-04-14 16:51 | W.ED.GENADLT ---
HPI - General Adult General: Chief complaint: Airway/Esophagus Foreign Body Stated complaint: food lodged in throat Time Seen by Provider: 04/14/23 16:50 History of Present Illness: 82-year-old male patient comes in today with a food bolus. Patient was at [employer] and was eating some chicken and swallowed it but did not feel it go all the way down. Patient had tried drinking but is not able to swallow anything that he drinks. Patient appears nontoxic. Patient appears in no pain. Patient does have medical history for chronic nicotine abuse, 2 MIs, and arthritis. Patient denies COPD. Review of Systems General: Reports: 10 or more systems reviewed and unremarkable except in HPI and below PFSH ED PFSH: Medical History Atherosclerosis of coronary artery Neuropathy Hyperlipidemia Surgical History History of PTCA Social History Smoking and tobacco/nicotine status: current every day tobacco/nicotine user Alcohol intake: former Substance/Drug Use: never Physical Exam Const: COMMON NORMALS: alert HENMT: COMMON NORMALS: normocephalic HEAD & SCALP: normocephalic Neck/C-Spine: COMMON NORMALS: full ROM Resp: COMMON NORMALS: normal respiratory effort AUSCULTATION: wheezes Cardio: COMMON NORMALS: regular rate RATE: regular rate GI: COMMON NORMALS: Soft to palpation and non-tender PALPATION: Yes Soft to palpation Back/Pelvis: COMMON NORMALS: thoracic and lumbar spine normal to inspection Extremity: COMMON NORMALS: normal to inspection Neuro: SENSORIUM/ORIENTATION: Yes alert Skin: COMMON NORMALS: turgor normal GENERAL SKIN EXAM: turgor normal Course Vital Signs: Vital signs: Vital Signs Temperature 97.4 F L 04/14/23 19:00 Pulse Rate 69 04/14/23 19:14 Respiratory Rate 18 04/14/23 19:14 Blood Pressure 168/71 04/14/23 19:14 Pulse Oximetry 98 04/14/23 19:14 Oxygen Delivery Me thod Room Air 04/14/23 19:14 [facility] - General Adult Medical Decision Making 82-year-old male patient presents today with complaints of difficulty swallowing. Patient states that he feels like there is something stuck in his esophagus. Patient is managing secretions appropriately. Vital signs are normal. Differential diagnosis includes esophageal spasm, food bolus, GERD. Consulted Dr. Mcfarland, surgeon on-call, he agreed to evaluate patient and plan for EGD. Lab Data Radiology Impressions Chest X-Ray 04/14/23 17:01 IMPRESSION: 1. No acute cardiopulmonary process. 2. No radiopaque foreign body. All radiology interpretation(s) finalized by discharge Discharge Plan Discharge Patient Disposition: Home Clinical Impression: Acute esophageal obstruction Condition: Stable Discharge Orders: Discharge Order (Routine); Ordered 04/14/23 Ordered By: Camden Mcfarland Discharge ED (Routine); Ordered 04/14/23 Ordered By: Emir Britt Discharge Diet: Full LIquid Discharge Activity: Resume usual activity Coding Level of Care Code ED Estimator And Drafter for Lindsayg Shawn
--- NOTE | 2023-04-14 17:01 | XRR_ITS ---
PROCEDURE INFORMATION: Exam: XR Chest Exam date and time: 04/14/2023 5:13 PM Age: 82 years old Clinical indication: Other: Food bolus TECHNIQUE: Imaging protocol: Radiologic exam of the chest. Views: 1 view. COMPARISON: CR XR chest 1V portable [id number] 02/13/2022 2:01 PM FINDINGS: Lungs: Lungs are clear bilaterally. Pleural spaces: No pleural effusion. No pneumothorax. Heart/Mediastinum: The cardiac silhouette and mediastinal contours are unremarkable. No radiopaque foreign body. Vasculature: Stable vascular calcifications in the aorta. Bones/joints: Unremarkable for age. XR/XR chest 1V portable [id number] IMPRESSION: 1. No acute cardiopulmonary process. 2. No radiopaque foreign body.
--- NOTE | 2023-04-14 17:53 | P.CONIM_ITS ---
Providers/Reason For Consult Consulting Physician/Specialty*: Dr. Camden Mcfarland DO/General surgery Reason for Consult*: Food bolus Attending Physician: Camden Mcfarland DO Primary Care Provider: Mendoza Forman DO History of Present Illness History of Present Illness Meeta Hurst is a 82 year old male, with past medical history as below, presented to the hospital with inability to swallow his own saliva. He was eating chicken and felt that the food did not go all the way down. He has been unable to swallow his saliva since then. He denies any pain, nausea, emesis, diarrhea, constipation, hematochezia and/or melena. Review of Systems General: Reports: 10 or more systems reviewed and unremarkable except in HPI and below Medications/Allergies Home Medications Medication Instructions Recorded Confirmed Last Taken Type aspirin 81 mg tablet,delayed 81 mg PO DAILY 10/07/20 02/01/23 09/05/22 History release cholecalciferol (vitamin D3) 25 25 mcg PO DAILY 10/07/20 02/01/23 09/05/22 History mcg (1,000 unit) capsule famotidine 20 mg tablet 20 mg PO BID 10/07/20 02/01/23 09/05/22 History simvastatin 80 mg tablet 80 mg PO QPM 10/07/20 02/01/23 09/04/22 History trazodone 50 mg tablet 25 mg PO BEDTIME 10/07/20 02/01/23 09/04/22 History imiquimod 5 % topical cream packet 1 applic topical ONCE #24 ea 03/30/22 02/01/23 Unknown Rx metoprolol tartrate 25 mg tablet 12.5 mg PO BID 03/30/22 02/01/23 09/05/22 History naproxen sodium 220 mg capsule 220 mg PO Q12H PRN Pain 09/05/22 02/01/23 Unknown History (Aleve) cyclobenzaprine 5 mg tablet 5 mg PO TID PRN muscle spasm #30 09/16/22 02/01/23 Unknown Rx tabs hydrocodone 5 mg-acetaminophen 325 1 tab PO Q6H PRN pain #14 tabs 09/21/22 02/01/23 Unknown Rx mg tablet Allergies Allergy/AdvReac Type Severity Reaction Status Date / Time No Known Allergies Allergy Verified 04/14/23 16:04 PFSH Acute PFSH: Medical History Atherosclerosis of coronary artery Neuropathy Hyperlipidemia Surgical History History of PTCA Social History Smoking and tobacco/nicotine status: current every day tobacco/nicotine user Alcohol intake: former Substance/Drug Use: never Vitals/I&O/Wt Last Vital Signs Temp 97.3 F L 04/14/23 16:00 Pulse 82 04/14/23 16:00 BP 145/77 04/14/23 16:34 Pulse Ox 97 04/14/23 16:34 O2 Del Method Room Air 04/14/23 16:34 Weight last 48 hrs Weight 160 lb Physical Exam Narrative: General : Patient is well developed , no acute distress, oriented x3 Head : Normal cephalic, a-traumatic. Ears : Pinnae and external canal are normal. Hearing is normal. Eyes : PERRLA, Sclera and injection are normal. No conjunctival discharge. Nose : Mucous membranes are without erythema. Throat : buccal mucosa is normal, gums are without significant recession or hypertrophy. Lungs : Equal chest rise bilaterally, no use of accessory muscles, trachea is mi dline. Cor : Rate and rhythm are normal. Abdomen : Soft, ND, NT, no g/r/m Extremities : No edema, no cyanosis or clubbing, dorsalis pedis pulses are present bilaterally, non-tender to palpation of calves. Upper extremities are normal bilaterally. Back : non-tender to palpation, no CVA tenderness. Neuro : CN II - XII intact, Upper and lower extremities have equal and full strength A&P Assessment and plan (1) Food bolus obstruction of intestine: Plan EGD The risks and benefits of the procedure, including bleeding, infection, intestinal perforation requiring surgery, missed lesion were explained to the patient. The patient is understanding of the risks and wishes to proceed. Coding Level of Care Code 53612 Diagnoses Food bolus obstruction of intestine K56.699; W44.F3XA
--- NOTE | 2023-04-14 17:58 | ANES.PREANE2 ---
Pre-Anesthetic Assessment Height/Weight: Height 1.83 m Weight 72.575 kg Temp Pulse BP Pulse Ox O2 Del Method 97.3 F L 82 145/77 97 Room Air 04/14/23 16:00 04/14/23 16:00 04/14/23 16:34 04/14/23 16:34 04/14/23 16:34 Preop Diagnosis: Food Bolus Operation Date: 04/14/23 17:35 Proposed Procedures p EGD(Not Applicable) - Camden Mcfarland DO Familial anesthetic complications: none Was Beta Rodney taken within 24 hours: Yes Last intake: 1600- meal Social Tobacco 0.5 ppd pack(s) per day Exam alert, oriented x 3 and clear to auscultation bilaterally (expiratory wheezes) Airway Submandibular: within normal limits Cervical ROM: within normal limits Mallampati: Class I Pulmonary Chronic Obstructive Pulmonary Disease CV/HEM Coronary Artery Disease, Hypertension and Myocardial Infarction (x2 03/28/22) echo on chart None reported Hepatic None reported GI food bolus Metabolic Hyperlipidemia Musc/sk Weakness Neuropsych Syncope Anesthetic Plan ASA status: 3 Anesthesia: General Medications/Allergies Home Medications Medication Instructions Recorded Confirmed Last Taken Type aspirin 81 mg tablet,delayed 81 mg PO DAILY 10/07/20 02/01/23 09/05/22 History release cholecalciferol (vitamin D3) 25 25 mcg PO DAILY 10/07/20 02/01/23 09/05/22 History mcg (1,000 unit) capsule famotidine 20 mg tablet 20 mg PO BID 10/07/20 02/01/23 09/05/22 History simvastatin 80 mg tablet 80 mg PO QPM 10/07/20 02/01/23 09/04/22 History trazodone 50 mg tablet 25 mg PO BEDTIME 10/07/20 02/01/23 09/04/22 History imiquimod 5 % topical cream packet 1 applic topical ONCE #24 ea 03/30/22 02/01/23 Unknown Rx metoprolol tartrate 25 mg tablet 12.5 mg PO BID 03/30/22 02/01/23 09/05/22 History naproxen sodium 220 mg capsule 220 mg PO Q12H PRN Pain 09/05/22 02/01/23 Unknown History (Aleve) cyclobenzaprine 5 mg tablet 5 mg PO TID PRN muscle spasm #30 09/16/22 02/01/23 Unknown Rx tabs hydrocodone 5 mg-acetaminophen 325 1 tab PO Q6H PRN pain #14 tabs 09/21/22 02/01/23 Unknown Rx mg tablet Allergies Allergy/AdvReac Type Severity Reaction Status Date / Time No Known Allergies Allergy Verified 04/14/23 16:04 [facility] Anesthesia Medical History Atherosclerosis of coronary artery Neuropathy Hyperlipidemia Surgical History History of PTCA Social History Smoking and tobacco/nicotine status: current every day tobacco/nicotine user Alcohol intake: former Substance/Drug Use: never Data Anesthesia Cardiac Studies: Echocardiogram 02/14/22
--- NOTE | 2023-04-14 18:27 | P.DS_ITS ---
Discharge Providers Date of Discharge: April 14, 2023 Attending Provider at Discharge: Camden Mcfarland DO Primary Care Provider: Mendoza Forman DO Diagnoses at Discharge Discharge Diagnosis (1) Food bolus obstruction of intestine: Status: Acute Reason for Visit Reason for Visit: food lodged in throat Hospital Course Hospital Course Patient presents to the hospital with inability to swallow his saliva. He was eating at the [email or web address] restaurant earlier and got an esophageal food bolus. He never had this before. He underwent EGD with clearance of esophageal food bolus. He was discharged home in good condition on a full liquid diet Physical Exam Narrative: General : Patient is well developed , no acute distress, oriented x3 Head : Normal cephalic, a-traumatic. Ears : Pinnae and external canal are normal. Hearing is normal. Eyes : PERRLA, Sclera and injection are normal. No conjunctival discharge. Nose : Mucous membranes are without erythema. Throat : buccal mucosa is normal, gums are without significant recession or hypertrophy. Lungs : Equal chest rise bilaterally, no use of accessory muscles, trachea is midline. Cor : Rate and rhythm are normal. Abdomen : Soft, ND, NT, no g/r/m Extremities : No edema, no cyanosis or clubbing, dorsalis pedis pulses are present bilaterally, non-tender to palpation of calves. Upper extremities are normal bilaterally. Back : non-tender to palpation, no CVA tenderness. Neuro : CN II - XII intact, Upper and lower extremities have equal and full strength Discharge Data Studies Completed and Pending Completed Studies During Hospitalization Category Date Time Status XR chest 1V portable [id number] Stat Exams 04/14/23 17:01 Completed Radiology Impressions Chest X-Ray 04/14/23 17:01 IMPRESSION: 1. No acute cardiopulmonary process. 2. No radiopaque foreign body. Procedures Performed EGD with clearance of esophageal food bolus Vitals Last Vital Signs Temp 97.3 F L 04/14/23 16:00 Pulse 82 04/14/23 16:00 BP 145/77 04/14/23 16:34 Pulse Ox 97 04/14/23 16:34 O2 Del Method Room Air 04/14/23 16:34 Discharge Plan Discharge Patient Disposition: Home Condition: Stable Prescriptions: Continued famotidine 20 mg tablet 20 mg PO BID aspirin 81 mg tablet,delayed release (DR/EC) 81 mg PO DAILY simvastatin 80 mg tablet 80 mg PO QPM trazodone 50 mg tablet 25 mg PO BEDTIME cholecalciferol (vitamin D3) 25 mcg (1,000 unit) capsule 25 mcg PO DAILY imiquimod 5 % cream in packet 1 applic topical ONCE Qty: 24 1RF Rx Instructions: Apply thin film Wednesday-Wednesday ( Off weekends) for 6 weeks. metoprolol tartrate 25 mg tablet 12.5 mg PO BID Aleve 220 mg Capsule 220 mg PO Q12H PRN (Reason: Pain) cyclobenzaprine 5 mg tablet 5 mg PO TID PRN (Reason: muscle spasm) Qty: 30 0RF hydrocodone-acetaminophen 5-325 mg tablet 1 tab PO Q6H PRN (Reason: pain) Qty: 14 0RF Discharge Orders: Discharge Order (Routine); Ordered 04/14/23 Ordered By: Camden Mcfarland Referrals: Camden Mcfarland DO [Physician] - 2 weeks Mendoza Forman DO [Primary Care Provider] - Discharge Diet: Full LIquid Discharge Activity: Resume usual activity Activity Restrictions/Additional Instructions: No solid food for 3 days Discharge Attestations Time Spent in Discharge Care*: less than 30 min Quality Metrics Clinical Quality Measures [ No reported AMI, CVA or VTE this stay] Coding Level of Care Code Acute Code for Chg Fwd Diagnoses Food bolus obstruction of intestine K56.699; W44.F3XA
--- NOTE | 2023-04-14 18:46 | ANE.PACU2 ---
Inpatient post-anesthesia follow up: Airway intact: Yes Vital signs: Temperature 97.4 F Pulse Rate 68 Respiratory Rate 16 Blood Pressure 139/68 Pulse Oximetry 94 Oxygen Delivery Me thod Room Air Oxygen Flow Rate Fraction of Inspir ed Oxygen Hydration adequate: Yes Nausea and vomiting: No Pain level: 2 Mental status: Baseline
== END 2023-04-14 19:30 | disposition home or self-care (01) ==
LOC: ER 16:51 → GILAB 17:50
PROVIDERS: Emergency Provider Nurse Practitioner Family; PCP Emergency Medicine Emergency Medical Services; Visit Provider Surgery
PROC: 0DJ08ZZ Inspection of Upper Intestinal Tract, Via Natural or Artificial Opening Endoscopic (ICD-10-PCS; CPT 43235; principal; 2023-04-14 17:35)
DX: T18.128A Food in esophagus causing other injury, initial encounter (principal); W44.F3XA Food entering into or through a natural orifice, initial encounter; E78.5 Hyperlipidemia, unspecified; I25.10 Atherosclerotic heart disease of native coronary artery without angina pectoris; F17.210 Nicotine dependence, cigarettes, uncomplicated; Z79.82 Long term (current) use of aspirin
CPT/HCPCS: 43247; 71045; J0330; J2405; J2704; J3010

== ENCOUNTER → 2023-05-03 12:31 | Outpatient (BNVA) | payer OTHER, SELFPAY | PROVIDERS: PCP Emergency Medicine Emergency Medical Services; Visit Provider Nurse Practitioner Family | DX: L57.0 Actinic keratosis (principal); L81.4 Other melanin hyperpigmentation; L57.8 Other skin changes due to chronic exposure to nonionizing radiation; L82.1 Other seborrheic keratosis; L85.3 Xerosis cutis; Z85.828 Personal history of other malignant neoplasm of skin | CPT/HCPCS: 17000; 99214 ==

== ENCOUNTER → 2023-05-05 09:27 | Outpatient (BNVA) | payer OTHER, SELFPAY | PROVIDERS: PCP Emergency Medicine Emergency Medical Services; Visit Provider Specialist | DX: M19.011 Primary osteoarthritis, right shoulder (principal) | CPT/HCPCS: 99204; 99213 ==

== ENCOUNTER → 2023-05-11 09:27 | Outpatient (BNVA) | payer OTHER, SELFPAY | PROVIDERS: PCP Emergency Medicine Emergency Medical Services; Visit Provider Surgery | DX: K21.9 Gastro-esophageal reflux disease without esophagitis (principal); K22.2 Esophageal obstruction | CPT/HCPCS: 99214 ==

== ENCOUNTER → 2023-05-25 08:29 | Outpatient (BNVA) | payer OTHER, SELFPAY | PROVIDERS: PCP Emergency Medicine Emergency Medical Services; Visit Provider Internal Medicine Cardiovascular Disease | DX: I25.10 Atherosclerotic heart disease of native coronary artery without angina pectoris (principal); R00.0 Tachycardia, unspecified; R03.0 Elevated blood-pressure reading, without diagnosis of hypertension; E78.2 Mixed hyperlipidemia; F17.200 Nicotine dependence, unspecified, uncomplicated | CPT/HCPCS: 99214 ==

== ENCOUNTER 2023-06-15 09:30 | Day surgery (SDC) | payer OTHER, SELFPAY ==
--- NOTE | 2023-06-15 09:25 | P.ANESASSM_ITS ---
Pre-Anesthetic Assessment Height/Weight: Height 1.83 m Operation Date: 06/15/23 11:10 Proposed Procedures p EGD Dilation W/ Balloon(Not Applicable) - Gilbert Andino MD Social Tobacco and No alcohol Exam alert, oriented x 3, clear to auscultation bilaterally and regular rate & rhythm Airway Submandibular: within normal limits Cervical ROM: within normal limits Mallampati: Class II Pulmonary Chronic Obstructive Pulmonary Disease CV/HEM Arrythmia (Wide complex tachy), Coronary Artery Disease and Hypertension Anesthetic Plan ASA status: 3 Anesthesia: MAC Medications/Allergies Home Medications Medication Instructions Recorded Confirmed Last Taken Type aspirin 81 mg tablet,delayed 81 mg PO DAILY 10/07/20 06/10/23 06/10/23 History release cholecalciferol (vitamin D3) 25 25 mcg PO DAILY 10/07/20 06/10/23 06/10/23 History mcg (1,000 unit) capsule famotidine 20 mg tablet 20 mg PO BID 10/07/20 06/10/23 06/10/23 History simvastatin 80 mg tablet 80 mg PO QPM 10/07/20 06/10/23 06/09/23 History trazodone 50 mg tablet 25 mg PO BEDTIME 10/07/20 06/10/23 06/09/23 History metoprolol tartrate 25 mg tablet 12.5 mg PO BID 03/30/22 06/10/23 06/10/23 History naproxen sodium 220 mg capsule 220 mg PO Q12H PRN Pain 09/05/22 06/10/23 06/10/23 History (Aleve) Allergies Allergy/AdvReac Type Severity Reaction Status Date / Time No Known Allergies Allergy Verified 06/10/23 12:27 [facility] Anesthesia Medical History Atherosclerosis of coronary artery Neuropathy Hyperlipidemia Surgical History History of PTCA Social History Smoking and tobacco/nicotine status: current every day tobacco/nicotine user Alcohol intake: former Substance/Drug Use: never Data Anesthesia Cardiac Studies: Echocardiogram 02/14/22
[2023-06-15] MEDS: sodium chloride 0.9% 1,000 ML 30 ML IV (10:04)
[2023-06-15 10:05] VITALS: TEMP 36.2
--- NOTE | 2023-06-15 10:10 | W.PM.OPSFHP ---
Same Day Surgery H&P Indication for Procedure/HPI DATE OF PROCEDURE: June 15, 2023 CHIEF COMPLAINT/INDICATIONFOR SURGICAL PROCEDURE: possible esophageal stricture PREOP DIAGNOSIS: esophageal stricture PLANNED PROCEDURE: Operation Date: 06/15/23 11:10 Proposed Procedures p EGD Dilation W/ Balloon(Not Applicable) - Gilbert Andino MD Medications/Allergies* Home Medications Medication Instructions Recorded Confirmed Type aspirin 81 mg tablet,delayed 81 mg PO DAILY 10/07/20 06/10/23 History release cholecalciferol (vitamin D3) 25 25 mcg PO DAILY 10/07/20 06/10/23 History mcg (1,000 unit) capsule famotidine 20 mg tablet 20 mg PO BID 10/07/20 06/10/23 History simvastatin 80 mg tablet 80 mg PO QPM 10/07/20 06/10/23 History trazodone 50 mg tablet 25 mg PO BEDTIME 10/07/20 06/10/23 History metoprolol tartrate 25 mg tablet 12.5 mg PO BID 03/30/22 06/10/23 History naproxen sodium 220 mg capsule 220 mg PO Q12H PRN Pain 09/05/22 06/10/23 History (Aleve) Allergies/Adverse Reactions Allergy/AdvReac Type Severity Reaction Status Date / Time No Known Allergies Allergy Verified 06/10/23 12:27 Current Medications: Generic Name Dose Route Start Last Admin Trade Name Freq PRN Reason Stop Dose Admin Sodium Chloride 1,000 mls @ 30 mls/hr 06/15/23 10:00 06/15/23 10:04 Sodium Chloride 0.9% IV 30 mls/hr .Q24H COLLIN Administration Pertinent History/Comorbid Conditions* Medical History (Updated 05/25/23 @ 11:25 by Jos Mc MD) Atherosclerosis of coronary artery Neuropathy Hyperlipidemia Surgical History (Updated 03/04/22 @ 12:36 by Buffy Ignacio DO) History of PTCA Social History Smoking and tobacco/nicotine status: current every day tobacco/nicotine user Alcohol intake: former Substance/Drug Use: never Pertinent Exam Findings alert, oriented x 3, clear to auscultation bilaterally and regular rate & rhythm Recommendations Surgery/Procedure today Coding Level of Care Code Acute Code for Chg Fwd
[2023-06-15 10:11] VITALS: BMI 22.2
[2023-06-15 11:26] VITALS: BP 89/51; PULSE 64; RESP 18; O2SAT 93
[2023-06-15 11:41] VITALS: BP 106/53; PULSE 65; RESP 18; TEMP 36.2; O2SAT 96
--- NOTE | 2023-06-15 12:50 | ANE.PACU2 ---
Inpatient post-anesthesia follow up: Vital signs: Temperature 97.2 F Pulse Rate 65 Respiratory Rate 18 Blood Pressure 106/53 Pulse Oximetry 96 Oxygen Delivery Me thod Room Air Oxygen Flow Rate Fraction of Inspir ed Oxygen Hydration adequate: Yes Nausea and vomiting: No Pain level: 1 Mental status: Baseline
== END 2023-06-15 12:14 | disposition home or self-care (01) ==
PROVIDERS: PCP Emergency Medicine Emergency Medical Services; Visit Provider Surgery
DX: K22.2 Esophageal obstruction (principal); Z79.82 Long term (current) use of aspirin; E78.5 Hyperlipidemia, unspecified; K44.9 Diaphragmatic hernia without obstruction or gangrene; K29.50 Unspecified chronic gastritis without bleeding; K29.80 Duodenitis without bleeding; J44.9 Chronic obstructive pulmonary disease, unspecified; I25.10 Atherosclerotic heart disease of native coronary artery without angina pectoris; I10 Essential (primary) hypertension
CPT/HCPCS: 43239; 43249; 88305; 88342; J2704; J7030

== ENCOUNTER → 2023-06-30 09:42 | Outpatient (BNVA) | payer OTHER, SELFPAY | PROVIDERS: PCP Emergency Medicine Emergency Medical Services; Visit Provider Surgery | DX: Z09 Encounter for follow-up examination after completed treatment for conditions other than malignant neoplasm (principal); K21.9 Gastro-esophageal reflux disease without esophagitis; K22.2 Esophageal obstruction | CPT/HCPCS: 99214 ==

== ENCOUNTER → 2023-12-09 09:10 | Outpatient (BNVA) | payer OTHER, SELFPAY | PROVIDERS: PCP Emergency Medicine Emergency Medical Services; Visit Provider Nurse Practitioner Family | DX: I25.10 Atherosclerotic heart disease of native coronary artery without angina pectoris (principal); E78.2 Mixed hyperlipidemia; I10 Essential (primary) hypertension; Z87.891 Personal history of nicotine dependence | CPT/HCPCS: 36415; 80061; 99214 ==

== ENCOUNTER 2024-04-17 16:09 | Emergency (ER) | payer OTHER, MEDICARE, MEDICAID, SELFPAY ==
--- NOTE | 2024-04-17 16:13 | XRR_ITS ---
PROCEDURE INFORMATION: Exam: XR Left Foot Exam date and time: 04/17/2024 4:52 PM Age: 83 years old Clinical indication: Condition or disease; Other: Wound TECHNIQUE: Imaging protocol: Radiologic exam of the left foot. Views: 3 or more views. COMPARISON: No relevant prior studies available. FINDINGS: Bones/joints: There is an acute mildly displaced fracture involving the distal fibula. No other fracture identified. Soft tissues: Normal. XR/XR foot LT min 3V* [id number] IMPRESSION: Acute fracture of the distal fibula
[2024-04-17 16:23] VITALS: BP 93/49; PULSE 79; TEMP 36.4; O2SAT 95; BMI 21.7
[2024-04-17 19:03] LABS: Basophils % 0.7 %; Eosinophils # 0.2 10^3/uL (0.0-0.8); Eosinophils % 4.8 %; Hematocrit 39.9 % (37-53); Lymphocytes # 1.2 10^3/uL (0.8-4.8); Lymphocytes % 27.5 %; Mean Corpuscular HGB Conc 32.8 g/dL (30-55); Mean Corpuscular Hemoglobin 31.8 pg (27-33); Mean Corpuscular Volume 96.8 fl (82-101); Mean Platelet Volume 9.7 fL (7.4-10.4); Monocytes # 0.5 10^3/uL (0.2-0.9); Monocytes % 10.9 %; Neutrophils # 2.46 10^3/uL (1.8-7.7); Neutrophils % 55.9 %; Nucleated Red Blood Cells % 0 %; Platelet Count 241 10^3/cmm (157-399); Red Blood Count 4.12 10^6/uL (3.85-5.65); Red Cell Distribution Width 12.9 % (12.1-15.1)
[2024-04-17 19:17] LABS: Erythrocyte Sedimentation Rate 6 mm/hr (0-10)
[2024-04-17 19:20] LABS: Alanine Aminotransferase 13 U/L (0-41); Albumin Level 4.3 g/dL (3.5-5.2); Alkaline Phosphatase 72 U/L (40-130); Aspartate Amino Transferase 19 U/L (0-40); Blood Urea Nitrogen 20 mg/dL (8-23); Calcium 9.1 mg/dL (8.5-10.5); Carbon Dioxide 25 mmol/L (22-29); Chloride 101 mmol/L (98-107); Creatinine Clr Calc Pharmacy 64.1582; Globulin 2.2 g/dL (1.3-4.6); Glucose 93 mg/dL (65-115); Osmolality Calculated 284 mOsm/kg (285-295); Sodium 136 mmol/L (136-145); Total Bilirubin 0.5 mg/dL (0.15-1.2); Total Protein 6.5 g/dL (6.6-8.7)
[2024-04-17 19:24] LABS: Anion Gap 14.3 (5-19); Potassium 4.3 mmol/L (3.5-5.1)
--- NOTE | 2024-04-17 21:15 | W.ED.EXTPRO ---
HPI - Extremity Problem General: Chief complaint: Extremity Injury, Lower Stated complaint: wound on L foot, swelling Time Seen by Provider: 04/17/24 20:54 History of Present Illness: Patient walks into the ER with complaints of a wound on the top medial surface of his left foot. Patient said he ran over it with his pickup truck a couple weeks ago and developed a wound. He also notices swollen. It hurts to bear weight on it. The patient is ambulatory currently. Patient denies any fever or chills. Odor or purulent drainage. Related Data Home Medications ?Medication ?Instructions ?Recorded ?Confirmed aspirin 81 mg tablet,delayed 81 mg PO DAILY 10/07/20 12/09/23 release cholecalciferol (vitamin D3) 25 25 mcg PO DAILY 10/07/20 12/09/23 mcg (1,000 unit) capsule famotidine 20 mg tablet 20 mg PO BID 10/07/20 12/09/23 simvastatin 80 mg tablet 80 mg PO QPM 10/07/20 12/09/23 trazodone 50 mg tablet 25 mg PO BEDTIME 10/07/20 12/09/23 metoprolol tartrate 25 mg tablet 12.5 mg PO BID 03/30/22 12/09/23 naproxen sodium 220 mg capsule 220 mg PO Q12H PRN Pain 09/05/22 12/09/23 (Aleve) Previous Rx's ?Medication ?Instructions ?Recorded pantoprazole 40 mg tablet,delayed 40 mg PO QAM 6 months #180 tabs 06/30/23 release Allergies Allergy/AdvReac Type Severity Reaction Status Date / Time No Known Allergies Allergy Verified 04/17/24 16:31 Review of Systems General: Reports: 10 or more systems reviewed and unremarkable except in HPI and below PFSH ED PFSH: Medical History Atherosclerosis of coronary artery Neuropathy Hyperlipidemia Surgical History History of PTCA Social History Smoking and tobacco/nicotine status: former use of tobacco/nicotine Alcohol intake: former Substance/Drug Use: never Physical Exam Const: COMMON NORMALS: no acute distress, average body habitus, patient oriented x3, no limitations, healthy appearing, alert and well nourished Neck/C-Spine: COMMON NORMALS: no JVD Chest: COMMONS NORMALS: normal inspection of the chest and normal palpation of entire chest wall Resp: COMMON NORMALS: normal respiratory effort, No retractions, No use of accessory muscles and clear to auscultation bilaterally AUSCULTATION: clear to auscultation bilaterally Cardio: COMMON NORMALS: no JVD, regular rate, regular rhythm, S1 normal heart sound present and S2 normal heart sound present RATE: regular rate RHYTHM: regular rhythm HEART SOUNDS: S1 normal heart sound present and S2 normal heart sound present GI: COMMON NORMALS: Normal to inspection, nondistended, normoactive bowel sounds present, Soft to palpation, non-tender, No hepatosplenomegaly present and no masses PALPATION: Yes Soft to palpation and Yes No hepatosplenomegaly present Extremity: NARRATIVE EXTREMITY EXAM: Left lower extremity mildly swollen 1+ pitting edema, quarter size wound to medial dorsal side of the foot, dry in appearance, no drainage odor or streaking. Minimal tenderness with palpation over distal fibular area. Neuro: COMMON NORMALS: patient oriented x3 SENSORIUM/ORIENTATION: Yes alert Course Vital Signs: Vital signs: Vital Signs Temperature 97.5 F L 04/17/24 16:23 Pulse Rate 79 04/17/24 16:23 Blood Pressure 93/49 04/17/24 16:23 Pulse Oximetry 95 04/17/24 16:23 Oxygen Delivery Me thod Room Air 04/17/24 16:23 MDM - Extremity (Nontraumatic) Medical Decision Making Lab work was obtained which is essentially benign. X-ray showed acute fracture of the distal fibula. Wound was noted, we will put antibiotic ointment and a dressing over it. Will place the patient in a walking boot and have him follow-up with Ortho. Medical Records I reviewed the patient's medical records. Lab Data I reviewed the patient's lab results. 04/17/24 18:42 04/17/24 18:42 Radiology Impressions Foot X-Ray 04/17/24 16:13 IMPRESSION: Acute fracture of the distal fibula Laboratory Results WBC 4.40 10^3/uL (3.29-11.43) 04/17/24 18:42 RBC 4.12 10^6/uL (3.85-5.65) 04/17/24 18:42 Hgb 13.10 g/dL (11.27-16.99) 04/17/24 18:42 Hct 39.9 % (37-53) 04/17/24 18:42 MCV 96.8 fl (82-101) 04/17/24 18:42 MCH 31.8 pg (27-33) 04/17/24 18:42 MCHC 32.8 g/dL (30-55) 04/17/24 18:42 RDW 12.9 % (12.1-15.1) 04/17/24 18:42 Plt Count 241 10^3/cmm (157-399) 04/17/24 18:42 MPV 9.7 fL (7.4-10.4) 04/17/24 18:42 Neut % (Auto) 55.9 % 04/17/24 18:42 Lymph % (Auto) 27.5 % 04/17/24 18:42 Beauregard % (Auto) 10.9 % 04/17/24 18:42 Eos % (Auto) 4.8 % 04/17/24 18:42 Baso % (Auto) 0.7 % 04/17/24 18:42 Neut # (Auto) 2.46 10^3/uL (1.8-7.7) 04/17/24 18:42 Lymph # (Auto) 1.2 10^3/uL (0.8-4.8) 04/17/24 18:42 Beauregard # (Auto) 0.5 10^3/uL (0.2-0.9) 04/17/24 18:42 Eos # (Auto) 0.2 10^3/uL (0.0-0.8) 04/17/24 18:42 Baso # (Auto) 0.0 10^3/uL (0.0-0.1) 04/17/24 18:42 Nucleated RBC % (auto) 0 % 04/17/24 18: Nucleated RBCs # 0.0 /100WBC 04/17/24 18:42 ESR 6 mm/hr (0-10) 04/17/24 18:42 Sodium 136 mmol/L (136-145) 04/17/24 18:42 Potassium 4.3 mmol/L (3.5-5.1) 04/17/24 18:42 Chloride 101 mmol/L (98-107) 04/17/24 18:42 Carbon Dioxide 25 mmol/L (22-29) 04/17/24 18:42 Anion Gap 14.3 (5-19) 04/17/24 18:42 BUN 20 mg/dL (8-23) 04/17/24 18:42 Creatinine 0.9 mg/dL (0.7-1.2) 04/17/24 18:42 GFR Calculation Not Reportable 04/17/24 18:42 Glucose 93 mg/dL (65-115) 04/17/24 18:42 Calculated Osmolality 284 mOsm/kg (285-295) L 04/17/24 18:42 Calcium 9.1 mg/dL (8.5-10.5) 04/17/24 18:42 Total Bilirubin 0.5 mg/dL (0.15-1.2) 04/17/24 18:42 AST 19 U/L (0-40) 04/17/24 18:42 ALT 13 U/L (0-41) 04/17/24 18:42 Alkaline Phosphatase 72 U/L (40-130) 04/17/24 18:42 C-Reactive Protein 3.0 mg/L (0.0-4.9) 04/17/24 18:42 Total Protein 6.5 g/dL (6.6-8.7) L 04/17/24 18:42 Albumin 4.3 g/dL (3.5-5.2) 04/17/24 18:42 Globulin 2.2 g/dL (1.3-4.6) 04/17/24 18:42 All radiology interpretation(s) finalized by discharge Discharge Plan Discharge Patient Disposition: Home Clinical Impression: Closed fibular fracture, Wound of foot Condition: Stable Prescriptions: No Action famotidine 20 mg tablet 20 mg PO BID aspirin 81 mg tablet,delayed release (DR/EC) 81 mg PO DAILY simvastatin 80 mg tablet 80 mg PO QPM trazodone 50 mg tablet 25 mg PO BEDTIME cholecalciferol (vitamin D3) 25 mcg (1,000 unit) capsule 25 mcg PO DAILY pantoprazole 40 mg tablet,delayed release (DR/EC) 40 mg PO QAM 180 Days Qty: 180 0RF metoprolol tartrate 25 mg tablet 12.5 mg PO BID naproxen sodium [Aleve] 220 mg Capsule 220 mg PO Q12H PRN (Reason: Pain) Discharge Orders: Discharge ED (Routine); Ordered 04/17/24 Ordered By: Ryan Michaels Referrals: Mendoaz Forman DO [Primary Care Provider] - Patient Instructions: Ankle Fracture (ED), Wound Care (General) Activity Restrictions/Additional Instructions: The x-ray obtained of your foot in the ER shows you have a left fibular fracture. Please wear your walking boot at all times until seen by the orthopedist. Please keep your wound dressed and change dressings as needed. You may apply a thin layer of triple antibiotic ointment to the area daily. Please follow-up with your family practice physician within the next 7 days for further evaluation treatment. Print Language: Greenlandic Coding Level of Care Code ED Laboratory Immunologist for Dieter Escobar
[2024-04-17] MEDS: bacitracin ointment Pkt 1 EACH TOPICAL (22:18)
[2024-04-17 22:37] VITALS: BP 160/55; PULSE 73; O2SAT 95
--- NOTE | 2024-04-19 09:16 | DCPLANNER ---
messaged ortho for er f/u
== END 2024-04-17 22:23 | disposition home or self-care (01) ==
PROVIDERS: Emergency Medicine; Emergency Provider Emergency Medicine; PCP Emergency Medicine Emergency Medical Services
DX: S82.832A Other fracture of upper and lower end of left fibula, initial encounter for closed fracture (principal); S91.302A Unspecified open wound, left foot, initial encounter; Z87.891 Personal history of nicotine dependence; E78.5 Hyperlipidemia, unspecified; I25.10 Atherosclerotic heart disease of native coronary artery without angina pectoris; X58.XXXA Exposure to other specified factors, initial encounter
CPT/HCPCS: 36415; 73630; 80053; 85025; 85651; 86140; 99284

== ENCOUNTER → 2024-04-19 11:33 | Outpatient (BNVA) | payer OTHER, MEDICARE, MEDICAID, SELFPAY | PROVIDERS: PCP Emergency Medicine Emergency Medical Services; Visit Provider Podiatrist Foot & Ankle Surgery | DX: S82.842A Displaced bimalleolar fracture of left lower leg, initial encounter for closed fracture (principal); X58.XXXA Exposure to other specified factors, initial encounter | CPT/HCPCS: 73610; 99204 ==

== ENCOUNTER → 2024-04-27 09:25 | Outpatient (BNVA) | payer OTHER, SELFPAY | PROVIDERS: PCP Emergency Medicine Emergency Medical Services; Visit Provider Podiatrist Foot & Ankle Surgery | DX: S82.842D Displaced bimalleolar fracture of left lower leg, subsequent encounter for closed fracture with routine healing (principal); X58.XXXD Exposure to other specified factors, subsequent encounter | CPT/HCPCS: 73610; 99213 ==

== ENCOUNTER → 2024-05-04 09:57 | Outpatient (BNVA) | payer OTHER, SELFPAY | PROVIDERS: PCP Emergency Medicine Emergency Medical Services; Visit Provider Podiatrist Foot & Ankle Surgery | DX: S82.842D Displaced bimalleolar fracture of left lower leg, subsequent encounter for closed fracture with routine healing (principal); X58.XXXD Exposure to other specified factors, subsequent encounter | CPT/HCPCS: 73610; 99213 ==

== ENCOUNTER 2024-05-05 05:35 | Day surgery (SDC) | payer OTHER, SELFPAY ==
[2024-05-05] VITALS (11 sets, daily range): BP systolic 94–154; BP diastolic 49–64; PULSE 68–80; RESP 14–20; TEMP 36.1–36.7; O2SAT 93–100; BMI 24.4
--- NOTE | 2024-05-05 | XR_ITS ---
WS: [id number] Exam: XR ankle LT 2V [id number] Date/Time of Exam: 05/05/2024 12:00 AM Reason For Exam: OR PICS AP and lateral intraoperative images show plate and screw fixation involving a fracture of the lower fibula. Alignment appears satisfactory for healing. 2 screws also stabilize the fractured medial malleolus.
--- NOTE | 2024-05-05 06:31 | W.PM.OPSUD ---
Surgery/Procedure H&P Update DATE OF PROCEDURE: May 05, 2024 DATE H&P PERFORMED: 04/27/24 H&P UPDATE INFORMATION: I have reviewed H&P completed within last 30 days, I have examined patient prior to procedure, No changes to prior documentation and [place] [facility] [place] PREOP DIAGNOSIS: Left bimalleolar fracture PLANNED PROCEDURE: Operation Date: 05/05/24 07:00 Proposed Procedures p ORIF Ankle ORIF Bimalleolar Fracture(Left) - Matthew Gregory DPM
[2024-05-05] MEDS: sodium chloride 0.9% 1,000 ML 30 ML IV (06:37)
[2024-05-05] MEDS: ceFAZolin 2,000 mg SDV 2000 MG IVP (06:59)
--- NOTE | 2024-05-05 07:03 | P.OP_ITS ---
Operative Report Date of procedure: May 05, 2024 Pre-op diagnosis: Closed bimalleolar fracture of the left ankle S82.842A Post-op diagnosis: Closed bimalleolar fracture of the left ankle S82.842A Procedure done: Open reduction internal fixation left bimalleolar fracture. CPT code 63470 Implants: 3.0 mm [place] cannulated screw partially-threaded by 16 mm Omaha one third tubular plate 8 hole Omaha 3.5 mm locking screws by 14 mm x 6 [place] 4.0 mm headed partially-threaded cannulated screw x 2 both 55 mm in length 2-0 Vicryl skin lynnette Specimens removed/disposition: No specimens Pathology: No pathology Surgeon: Matthew Gregory DPM Rn Faculty: Solitario Colvin student Estimated blood loss: 5 51 minutes IV fluids: See intraoperative documentation. Urine output: No urine output Complications: no complications Brief History: X-ray of the left ankle shows bimalleolar fracture remains reduced. Has a fracture blister medially will require resolution prior to proceeding with ORIF. Dressing applied, compression and immobilization, remain strict nonweightbea ring to the left foot and elevate while resting. Tentatively scheduled for ORIF next Wednesday pending soft tissue. I reviewed at length with the patient, the risks, potential complications, benefits, alternatives, expectations, and typical outcomes associated with the surgery. The risks and potential complications were explained in detail, including but not limited to infection, wound dehiscence or soft tissue complications, bleeding and hematoma, chronic edema, neuritis or nerve damage producing numbness or chronic pain, CRPS, failure to relieve pain or worsening pain, thick / painful / unsightly scar, limited motion / stiffness, malposition, delayed union, malunion, or nonunion, fracture, reaction to implants, anesthetic complications, venous thromboembolism, and deformity recurrence. I discussed the notion of no regrets with the patient as it pertains to complications and outcomes. The patient seemed to understand the nature of the proposed care and required convalescence. They asked appropriate questions, answered to their satisfaction. They are aware no guarantees can be made as to a satisfactory outcome and they understand there may be other possible unforeseen complications or outcomes not listed here that will be treated accordingly if they arise. There were no written or implied guarantees given to the patient. They gave informed consent to proceed. Follow-up next for skin check in preparation for surgery the following day. Encouraged smoking cessation. Procedure: Under mild sedation the patient was brought to the operating room and remained on the gurney in supine position. A timeout was performed. Anesthesia was then administered by the anesthesia service. Of note left popliteal block performed preoperatively per anesthesia. Well-padded pneumatic tourniquet applied to the left high calf. The left lower extremity was scrubbed, prepped and draped utilizing normal aseptic technique. Left foot and ankle were then exanguinated with an Esmarch bandage and tourniquet inflated to 250 mmHg. Attention was directed to the lateral aspect of the left ankle where the lateral malleolus and fibular shaft was palpated directly over this a linear incision was performed through skin with a #15 blade with dissection carried down through subcutaneous tissue to layer periosteum utilizing a combination of sharp and blunt technique. Care was taken to retract and preserve neurovascular and tendinous structures. All bleeders were ligated and cauterized as necessary. Periosteal incision was performed in a oblique fracture of the distal fibular shaft was appreciated this was distracted and curettage of hematoma followed by saline flush this was reduced and fixated utilizing standard AO technique with a Omaha 3 mm headed cannulated screw as an interfrag screw followed by Omaha one third tubular plate with 3 screws hide and 3 screws low with excellent bony apposition and compression noted. Fibula is pulled out to length the rotated and was anatomic in all 3 planes confirmed with intraoperative C arm on AP oblique and lateral views. The incision was then directed to the medial malleol us which was fixated with near parallel to screw fixation utilizing standard AO technique and ankle mortise was congruent with AP, mortise and lateral view and hardware not violating the ankle mortise. Smooth range of motion intraoperatively appreciated the left ankle with 5 degrees of dorsiflexion and 35 degrees of plantarflexion without crepitus, cotton hook test yielded no syndesmotic disruption. The incision was irrigated both medial laterally saline solution and closed in a layered fashion. Deep fascia and periosteum reapproximated with 2-0 Vicryl skin with lynnette. The incisions were then dressed with Xeroform, sterile 4 x 4's, Kerlix and Joaquin wrap followed by application of a cam boot to the left lower extremity. Tourniquet was deflated and a prompt hyperemic response was noted to the distal digits of the left foot. Patient tolerated the procedure and anesthesia well and was transferred to the PACU with vital signs stable vascular status intact. Following a period of postoperative monitoring and be discharged home without home care instructions and scheduled follow-up is advised to remain strict nonweightbearing and elevate his left foot while resting.
--- NOTE | 2024-05-05 07:21 | ANES.PREANE2 ---
Pre-Anesthetic Assessment Height/Weight: Height 6 ft Weight 180 lb Temp Pulse Resp BP Pulse Ox O2 Del Method 98.0 F 68 16 94/49 100 Room Air 05/05/24 06:24 05/05/24 06:24 05/05/24 06:24 05/05/24 06:24 05/05/24 06:24 05/05/24 06:24 Preop Diagnosis: Left bimalleolar fracture Operation Date: 05/05/24 07:00 Proposed Procedures p ORIF Ankle ORIF Bimalleolar Fracture(Left) - Matthew Gregory DPM Was Beta Rodney taken within 24 hours: Yes Was Clonidine taken within 24 hours: N/A Last intake: Intake Last Liquid Date 05/04/24 Last Liquid Time 18:30 Last Solid Date 05/04/24 Last Solid Time 18:30 Social Tobacco and No alcohol Exam alert, oriented x 3, clear to auscultation bilaterally and regular rate & rhythm Airway Submandibular: within normal limits Cervical ROM: within normal limits Mallampati: Class II Comments: Comments: Edentulous Anesthetic Plan ASA status: 3 Anesthesia: General and Regional (specify below) Other: No prior issues with anesthesia NPO since yesterday evening History of GERD on Pepcid Hypertension on metoprolol GERD on Protonix Prior CAD, follows with cardiology. 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 Current smoker Recent labs reviewed and acceptable for procedure Plan for general anesthesia with peripheral nerve block Medications/Allergies Home Medications ?Medication ?Instructions ?Recorded ?Confirmed ?Last Taken ?Type aspirin 81 mg tablet,delayed 81 mg PO DAILY 10/07/20 05/04/24 05/04/24 17:30 History release cholecalciferol (vitamin D3) 25 25 mcg PO DAILY 10/07/20 05/04/24 05/04/24 17:30 History mcg (1,000 unit) capsule famotidine 20 mg tablet 20 mg PO BID 10/07/20 05/04/24 05/04/24 17:30 History simvastatin 80 mg tablet 80 mg PO QPM 10/07/20 05/04/24 05/04/24 17:30 History trazodone 50 mg tablet 25 mg PO BEDTIME 10/07/20 05/04/24 05/04/24 17:30 History metoprolol tartrate 25 mg tablet 12.5 mg PO BID 0205/04/24 05/04/24 17:30 History naproxen sodium 220 mg capsule 220 mg PO Q12H PRN Pain 09/05/22 05/04/24 05/02/24 19:00 History (Ame) pantoprazole 40 mg tablet,delayed 40 mg PO QAM 6 months #180 tabs 06/30/23 05/04/24 05/04/24 17:30 Rx release hydrocodone 10 mg-acetaminophen 1 tab PO Q6H PRN pain 7 days #28 05/05/24 Unknown Rx 325 mg tablet tabs Allergies Allergy/AdvReac Type Severity Reaction Status Date / Time No Known Allergies Allergy Verified 05/05/24 05:59 Current Medications Generic Name Dose Route Start Last Admin Trade Name Freq PRN Reason Stop Dose Admin Sodium Chloride 1,000 mls @ 30 mls/hr 05/05/24 06:00 05/05/24 06:37 Sodium Chloride 0.9% IV 05/06/24 05:59 30 mls/hr .Q24H COLLIN Administration PFSH Anesthesia Medical History Atherosclerosis of coronary artery Neuropathy Hyperlipidemia Surgical History History of PTCA Social History Smoking and tobacco/nicotine status: current every day tobacco/nicotine user Alcohol intake: former Substance/Drug Use: never Data Anesthesia Cardiac Studies: Echocardiogram 02/14/22
--- NOTE | 2024-05-05 07:23 | ANES.PROC ---
Anesthesia Procedures Procedure/Date: 05/05/24 Nerve Block ^: Nerve Block 1: Main Anesthesia: general anesthesia Time Out Performed: Yes Consent: requested by attending/covering physician and from patient Nerve block location: popliteal Anesthesia monitors applied: pulse oximetry, EKG, BP cuff and oxygen Nerve block position: supine Anesthetic Used: ropivicaine 0.5% Amount of anesthesia used (mL): 25 Ultrasound used to: recognize landmarks Nerve Stimulator Used?: Yes Interscalene/Femoral BLK: other needle (pjunk 4inch) Injection: neg aspiration of heme Patient Tolerated Procedure: well Complications: none Additional Comments: Decadron 4 mg added to block Nerve Block 2: Main Anesthesia: general anesthesia Time Out Performed: Yes Consent: requested by attending/covering physician and from patient Nerve block location: adductor canal Anesthesia monitors applied: pulse oximetry, EKG, BP cuff and oxygen Nerve block position: supine Anesthetic Used: ropivicaine 0.5% Amount of anesthesia used (mL): 15 Ultrasound used to: recognize landmarks Nerve Stimulator Used?: No Interscalene/Femoral BLK: other needle (pjunk 4inch) Injection: neg aspiration of heme Patient Tolerated Procedure: well Complications: none
[2024-05-05] MEDS: mupirocin oint 22 gm 1 APPLIC TOPICAL (07:40)
--- NOTE | 2024-05-05 09:15 | ANE.PACU2 ---
Inpatient post-anesthesia follow up: Airway intact: Yes Vital signs: Temperature 97.1 F Pulse Rate 78 Respiratory Rate 18 Blood Pressure 136/57 Pulse Oximetry 93 Oxygen Delivery Me thod Room Air Oxygen Flow Rate Fraction of Inspir ed Oxygen Hydration adequate: Yes Nausea and vomiting: No Pain level: 1 Mental status: Baseline
== END 2024-05-05 09:34 | disposition home or self-care (01) ==
PROVIDERS: Visit Provider Podiatrist Foot & Ankle Surgery
PROC: (CPT 27814; principal; 2024-05-05 07:00)
DX: S82.842A Displaced bimalleolar fracture of left lower leg, initial encounter for closed fracture (principal); K21.9 Gastro-esophageal reflux disease without esophagitis; I10 Essential (primary) hypertension; I25.10 Atherosclerotic heart disease of native coronary artery without angina pectoris; Z79.899 Other long term (current) drug therapy; F17.200 Nicotine dependence, unspecified, uncomplicated; Z79.82 Long term (current) use of aspirin; X58.XXXA Exposure to other specified factors, initial encounter
CPT/HCPCS: 27814; 73600; 76000; C1713; J0690; J1100; J2405; J2704; J3010; J7030; J9999

== ENCOUNTER → 2024-05-18 13:29 | Outpatient (BNVA) | payer OTHER, SELFPAY | PROVIDERS: Visit Provider Podiatrist Foot & Ankle Surgery | DX: Z98.890 Other specified postprocedural states (principal); Z87.81 Personal history of (healed) traumatic fracture; Z91.199 Patient's noncompliance with other medical treatment and regimen due to unspecified reason | CPT/HCPCS: 73610; 99213 ==

== ENCOUNTER → 2024-06-01 12:32 | Outpatient (BNVA) | payer OTHER, SELFPAY | PROVIDERS: Visit Provider Podiatrist Foot & Ankle Surgery | DX: Z98.890 Other specified postprocedural states (principal); Z87.81 Personal history of (healed) traumatic fracture; Z91.199 Patient's noncompliance with other medical treatment and regimen due to unspecified reason | CPT/HCPCS: 73610; 99024 ==

== ENCOUNTER → 2024-06-15 13:32 | Outpatient (BNVA) | payer OTHER, SELFPAY | PROVIDERS: PCP Emergency Medicine Emergency Medical Services; Visit Provider Podiatrist Foot & Ankle Surgery | DX: Z98.890 Other specified postprocedural states (principal); Z87.81 Personal history of (healed) traumatic fracture; Z91.199 Patient's noncompliance with other medical treatment and regimen due to unspecified reason | CPT/HCPCS: 73610; 99024 ==

== ENCOUNTER → 2024-06-29 14:41 | Outpatient (BNVA) | payer OTHER, SELFPAY | PROVIDERS: PCP Emergency Medicine Emergency Medical Services; Visit Provider Podiatrist Foot & Ankle Surgery | DX: Z98.890 Other specified postprocedural states (principal); Z87.81 Personal history of (healed) traumatic fracture; Z91.199 Patient's noncompliance with other medical treatment and regimen due to unspecified reason | CPT/HCPCS: 73610; 99024 ==

== ENCOUNTER → 2024-07-13 12:29 | Outpatient (BNVA) | payer OTHER, SELFPAY | PROVIDERS: PCP Emergency Medicine Emergency Medical Services; Visit Provider Podiatrist Foot & Ankle Surgery | DX: Z98.890 Other specified postprocedural states (principal); Z87.81 Personal history of (healed) traumatic fracture; Z91.199 Patient's noncompliance with other medical treatment and regimen due to unspecified reason | CPT/HCPCS: 73610; 99213 ==

== ENCOUNTER → 2024-08-02 13:02 | Outpatient (BNVA) | payer OTHER, SELFPAY | PROVIDERS: PCP Emergency Medicine Emergency Medical Services; Visit Provider Internal Medicine Cardiovascular Disease | DX: I25.10 Atherosclerotic heart disease of native coronary artery without angina pectoris (principal); R00.0 Tachycardia, unspecified; E78.2 Mixed hyperlipidemia; R03.0 Elevated blood-pressure reading, without diagnosis of hypertension; I95.1 Orthostatic hypotension; Z79.82 Long term (current) use of aspirin; Z98.61 Coronary angioplasty status; F17.200 Nicotine dependence, unspecified, uncomplicated | CPT/HCPCS: 99214 ==

== ENCOUNTER → 2024-08-03 13:29 | Outpatient (BNVA) | payer OTHER, SELFPAY | PROVIDERS: PCP Emergency Medicine Emergency Medical Services; Visit Provider Podiatrist Foot & Ankle Surgery | DX: Z98.890 Other specified postprocedural states (principal); Z87.81 Personal history of (healed) traumatic fracture; Z91.199 Patient's noncompliance with other medical treatment and regimen due to unspecified reason | CPT/HCPCS: 73610; 99213 ==

== ENCOUNTER → 2024-09-14 13:08 | Outpatient (BNVA) | payer OTHER, SELFPAY | PROVIDERS: PCP Emergency Medicine Emergency Medical Services; Visit Provider Podiatrist Foot & Ankle Surgery | DX: Z98.890 Other specified postprocedural states (principal); Z87.81 Personal history of (healed) traumatic fracture; Z91.199 Patient's noncompliance with other medical treatment and regimen due to unspecified reason | CPT/HCPCS: 73610; 99213 ==

== ENCOUNTER → 2024-09-21 14:16 | Outpatient (BNVA) | payer OTHER, SELFPAY | PROVIDERS: PCP Emergency Medicine Emergency Medical Services; Visit Provider Nurse Practitioner Family | DX: L81.4 Other melanin hyperpigmentation (principal); L57.8 Other skin changes due to chronic exposure to nonionizing radiation; L82.1 Other seborrheic keratosis; Z08 Encounter for follow-up examination after completed treatment for malignant neoplasm; Z85.828 Personal history of other malignant neoplasm of skin; L57.0 Actinic keratosis | CPT/HCPCS: 17000; 99213 ==

== ENCOUNTER 2024-10-17 19:37 | Day surgery (SDC) | payer OTHER, MEDICARE, SELFPAY ==
[2024-10-17] VITALS (11 sets, daily range): BP systolic 96–148; BP diastolic 51–71; PULSE 65–77; RESP 16–18; TEMP 36.1–36.5; O2SAT 94–99; BMI 20.3
--- OUTSIDE RECORDS SUMMARY | 2024-10-17 14:44 | XMS_ITS | Continuity of Care Document ---
Author Name [employer] Organization [employer] Care Team Providers Care Foot Drill Operator Name Role Phone [employer] Unavailable Unavailable Problems Combined list of problems from Department of Defense and Veterans Affairs facilities. It does not include entries that were removed or entered in error. Problem Status Onset Date Problem Type Date of Resolution Comments Source Arrhythmia Active Condition [place] [facility] Benign prostatic hyperplasia Active Condition [place] [facility] Cataract Active Condition [place] [facility] Chronic obstructive pulmonary disease (SNOMED CT 96699472) Active Condition [place] [facility] closed fibular fracture Active Condition [place] [facility] DIVERTICULOSIS OF COLON Active Condition [place] [facility] Essential hypertension (SNOMED CT 29720902) Active Condition [place] [facility] EXT HEMORRHOID W/O COMPL Active Condition [facility] Ganglion and cyst of synovium, tendon, and bursa (ICD-9-CM 727.49) Active Condition [place] [facility] gastritis = egd 06/08 Active Condition [place] [facility] Hyperlipidemia (SNOMED CT 84518836) Active Condition [place] [facility] INSOMNIA, unspecified (ICD-9-CM 780.52) Active Condition [place] [facility] OSTEOARTHROSIS-MULT SITE Active Condition [place] [facility] Paroxysmal supraventricular tachycardia (ICD-9-CM 427.0) Active Condition [place] [facility] Physician statement for disabled life complaints or placard signed 09/2024 Active Condition [place] [facility] Prediabetes Active Condition [place] [facility] REFLUX ESOPHAGITIS Active Condition [facility] Regular wide QRS complex tachycardia Active Condition Feb 26, 2022 Entered By: FABY JARVIS Comment: Possible NSTEMI with Trop. elevation in ER on this visit. [place] [facility] Residual hemorrhoidal skin tags (SNOMED CT 60909441) Active Condition [place] [facility] SCREEN MAL NEOP-RECTUM Active Condition [place] [facility] Sensorineural hearing loss of bilateral ears Active Condition [place] [facility] SPRAIN SHOULDER/ARM NEC Active Condition [place] [facility] Tobacco user (SNOMED CT 352804581) Active Condition Aug 02, 2001 Entered By: MIKY MARTIN Comment: 1 PK DAY [place] [facility] BENIGN HYPERTENSION Inactive Condition 05/28/2020 [place] [facility] Issue of Repeat Prescriptions (ICD-9-CM V68.1) Inactive Condition 05/29/2019 [facility] Routine General Medical Examination at a Health Care Facility * (ICD-9-CM V70.0) Inactive Condition 05/29/2019 [facility] SCREENING FOR DEPRESSION Inactive Condition 05/29/2019 [place] [facility] Diagnosis: ICD-10-CM L89.151 Pressure ulcer of sacral region, stage 1 Active Diagnosis [facility] Diagnosis: ICD-10-CM Z13.5 Encounter for screening for eye and ear disorders Active Diagnosis [place] [facility] Diagnosis: ICD-10-CM Z00.01 Encounter for general adult medical exam w abnormal findings Active Diagnosis [facility] Diagnosis: ICD-10-CM Z46.1 Encounter for fitting and adjustment of hearing aid Active Diagnosis [place] [facility] Diagnosis: ICD-10-CM Z23 Encounter for immunization Active Diagnosis 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 Medications Combined list of outpatient medications from Department of Defense and Veterans Affairs facilities.Medications provided include 1) outpatient medications from the last 15 months, and 2) patient-reported medications. Medication Details Route Status Patient Instructions Prescription Expires Prescription Number Last Dispense Date Ordering Provider Order Date Order Qty Source ASPIRIN 81MG TAB,EC TAKE ONE TABLET BY MOUTH ONCE A DAY ORAL ACTIVE NATHANIEL JARVIS 2017 [facility] CHOLECALCIF CELIO 25MCG (1,000UNIT) TAB TAKE ONE TABLET BY MOUTH ONCE A DAY FOR VITAMIN D DEFICIEN CY. ORAL ACTIVE 11/26/2024 [id number] 5 CHAD BOOGIE 2023 100 [facility] LIDOCAINE 5% PATCH APPLY 1 PATCH TO SKIN SITE ONCE A DAY FOR LOCAL ANESTHES IA APPLY PATCH AND PRESS FIRMLY FOR 10-15 SECONDS. KEEP ON FOR 12 HOURS THEN REMOVE PATCH FOR 12 HOURS. TRANSD ERMAL 04/15/2024 [id number] 4 NATHANIEL JARVIS 2023 30 [facility] METOPROLOL TARTRATE 25MG TAB TAKE ONE-HALF TABLET BY MOUTH TWICE A DAY FOR ARRHYTHM IA TAKE WITH OR IMMEDIAT MANOJ FOLLOWIN G FOOD. ORAL SUSPEND ED 02/21/2025 [id number] 5 CHAD BOOGIE 2024 90 [facility] METOPROLOL TARTRATE 25MG TAB TAKE ONE-HALF TABLET BY MOUTH TWICE A DAY FOR ARRHYTHM IA TAKE WITH OR IMMEDIAT MANOJ FOLLOWIN G FOOD. ORAL DISCONT INUED 04/15/2024 [id number] 5 NATHANIEL JARVIS [address] [place] [address] [facility] MULTIVITAMI NS CAP/TAB TAKE ONE TABLET BY MOUTH ONCE A DAY ORAL ACTIVE NATHANIEL JARVIS 2022 [facility] NAPROXEN NA 220MG TAB TAKE ONE TABLET BY MOUTH THREE TIMES A DAY NEEDED ORAL ACTIVE NATHANIEL JARVIS 2022 [facility] SIMVASTATIN 80MG TAB TAKE ONE TABLET BY MOUTH EVERY EVENING TO LOWER CHOLESTE ROL (DO NOT TAKE WITH GRAPEFRU IT JUICE) ORAL ACTIVE 06/09/2025 [id number] 5 CHAD BOOGIE 2024 90 [facility] SIMVASTATIN 80MG TAB TAKE ONE TABLET BY MOUTH EVERY EVENING TO LOWER CHOLESTE ROL (DO NOT TAKE WITH GRAPEFRU IT JUICE) ORAL DISCONT INUED 05/24/2024 [id number] NATHANIEL JARVIS 2023 90 [facility] TRAZODONE HCL 50MG TAB TAKE ONE-HALF TABLET BY MOUTH AT BEDTIME FOR SLEEP THIS TABLET IS TO BE CUT IN HALF FOR YOUR DOSE ORAL ACTIVE 06/09/2025 [id number] 5 CHAD BOOGIE 2024 45 [facility] TRAZODONE [facility] 50MG TAB TAKE ONE-HALF TABLET BY MOUTH AT BEDTIME FOR SLEEP THIS TABLET IS TO BE CUT IN HALF FOR YOUR DOSE ORAL DISCONT INUED 05/24/2024 [id number] 4 NATHANIEL JARVIS 2023 45 [facility] VANICREAM APPLY SPARINGL Y TO AFFECTED AREA(S) TWICE A DAY TO BODY AND FACE TOPICA L ACTIVE 11/03/2024 [id number] JAE MATTHEW A 2023 454 [place] [facility] ZINC OXIDE 20% OINT,TOP APPLY SPARINGL Y TO AFFECTED AREA(S) ONCE A DAY NEEDED FOR SKIN PROTECTI ON TOPICA L ACTIVE 08/11/2025 [id number] CHAD BOOGIE 2024 60 [facility] Immunizations Combined list of available immunizations from the Department of Defense and Veterans Affairs facilities. Immunization Series Date Given Administered By Site Reaction Lot Number CVX Code Drug Wave Solder Offbearer Status Comments Source TDAP 2024 SYEDA RIOS LEFT DELTO ID [id number] 115 complet ed [facility] INFLUENZA, HIGH-DOSE, TRIVALENT, PF 2023 STAN POLK LEFT DELTO ID [id number] 135 complet ed [facility] COVID-19 (MODERNA), MRNA, LNP-S, PF, 50 MCG/0.5 ML (AGES 12+ YEARS) 1 2022 ABRAHAM ULRICH LEFT DELTO ID [id number] 312 complet ed [facility] INFLUENZA, HIGH-DOSE, QUADRIVALENT 2022 MARLI ALAS LEFT DELTO ID [id number] 197 complet ed [facility] INFLUENZA, INJECTABLE, QUADRIVALENT, PRESERVATIVE FREE 2021 150 complet ed [place] [facility] COVID-19 (JENNIFER), VECTOR-NR, [id number], PF, 0.5 ML 2 2020 212 complet ed JSN; [id number]; 2 [place] [facility] INFLUENZA, INJECTABLE, QUADRIVALENT, PRESERVATIVE FREE 2020 150 complet ed [place] [facility] COVID-19 (JNENIFER), VECTOR-NR, [id number], PF, 0.5 ML 1 2020 212 complet ed HISTORICA L INFORMATI ON - FROM OTHER REGISTRY, [facility] INFLUENZA, INJECTABLE, QUADRIVALENT, PRESERVATIVE FREE 2019 150 complet ed [place] [facility] INFLUENZA, INJECTABLE, QUADRIVALENT, PRESERVATIVE FREE 2018 150 complet ed [place] ZOSTER RECOMBINANT 2 2018 187 complet ed [place] ZOSTER RECOMBINANT 1 2017 187 complet ed [place] [facility] INFLUENZA, SEASONAL, INJECTABLE, PRESERVATIVE FREE 2016 140 complet ed Left Deltoid [place] [facility] INFLUENZA, SEASONAL, INJECTABLE, PRESERVATIVE FREE 2015 140 complet ed [facility] INFLUENZA, SEASONAL, INJECTABLE, PRESERVATIVE FREE 2014 140 complet ed [facility] PNEUMOCOCCAL CONJUGATE PCV 13 2014 133 complet ed [facility] INFLUENZA, SEASONAL, INJECTABLE, PRESERVATIVE FREE 2013 140 complet ed [place] TDAP 2013 115 complet ed Left Deltoid [facility] INFLUENZA, UNSPECIFIED FORMULATION 2012 88 complet ed [place] INFLUENZA, UNSPECIFIED FORMULATION 2011 88 complet ed [place] [facility] ZOSTER LIVE 1 2011 121 complet ed HISTORICA L INFORMATI ON - FROM OTHER REGISTRY, [facility] INFLUENZA, UNSPECIFIED FORMULATION 2010 88 complet ed [place] [facility] INFLUENZA, UNSPECIFIED FORMULATION 2009 88 complet ed [place] INFLUENZA (HISTORICAL) 2008 88 complet ed [place] [facility] INFLUENZA, UNSPECIFIED FORMULATION 2007 88 complet ed [facility] INFLUENZA, UNSPECIFIED FORMULATION 2007 88 complet ed [facility] TD (ADULT), 2 LF TETANUS TOXOID, PRESERVATIVE FREE, ADSORBED 1 2007 09 complet ed HISTORICA L INFORMATI ON - FROM OTHER REGISTRY, [facility] OUTSIDE PNEUMOVAX (HISTORICAL) 2007 109 complet ed [facility] PNEUMOCOCCAL POLYSACCHARID E [id number] 2007 33 complet ed [facility] INFLUENZA, UNSPECIFIED FORMULATION 2006 88 complet ed [facility] INFLUENZA, UNSPECIFIED FORMULATION 2006 88 complet ed [facility] INFLUENZA, UNSPECIFIED FORMULATION 2005 88 complet ed [facility] INFLUENZA, UNSPECIFIED FORMULATION 2004 88 complet ed [facility] INFLUENZA, UNSPECIFIED FORMULATION 2003 88 complet ed [facility] PNEUMOCOCCAL, UNSPECIFIED FORMULATION 2003 109 complet ed [employer], Right Deltoid, Lot #:[id number] [facility] INFLUENZA, UNSPECIFIED FORMULATION [address] [facility] INFLUENZA, UNSPECIFIED FORMULATION [address] [facility] TD(ADULT) UNSPECIFIED FORMULATION 2001 139 complet ed [facility] INFLUENZA, UNSPECIFIED FORMULATION [address] [facility] INFLUENZA, UNSPECIFIED FORMULATION 1998 MICHAEL AGUILERA 88 complet ed [facility] Results Combined list of recent chemistry, hematology and other laboratory results from Department of Defense and Veterans Affairs, ranging from 15 months to all on record, depending upon the facility. Order Name Results Value Reference Range Date Interpretation Specimen Comments Source B12 COBALAMIN (VITAMIN B12) [MASS/VOLUME] IN SERUM OR PLASMA 707 pg/mL 213 - 816 06/19 Specimen Type: SERUM No comment entered. Ordering Provider: CHAD BOOGIE Report Released Date/Time : June 16, 2024 01:20 PM Reporting Lab: [facility] [address] [place] [address] Performin g Lab: [place] [facility] [address] [place] [address] [facility] TSH (MA-PB) THYROTROPIN [UNITS/VOLUME ] IN SERUM OR PLASMA 1.281 u[IU]/ mL 0.47 - 5 06/19 Specimen Type: SERUM No comment entered. Ordering Provider: CHAD BOOGIE Report Released Date/Time : June 16, 2024 01:20 PM Reporting Lab: [place] [facility] [address] [place] [address] Performin g Lab: [place] [facility] [address] [place] [address] [facility] VITAMIN D, 25-HYDROXY 25-HYDROXYVIT MCKEON D3 [MASS/VOLUME] IN SERUM OR PLASMA 39.9 ng/mL 30 - 96 06/19 Specimen Type: SERUM No comment entered. Ordering Provider: CHAD BOOGIE Report Released Date/Time : June 16, 2024 01:20 PM Reporting Lab: [place] [facility] [address] [place] [address] Performin g Lab: [place] [facility] [address] [place] [address] [facility] CHOLESTEROL PANEL (PB) CHOLESTEROL [MASS/VOLUME] IN SERUM OR PLASMA 137 mg/dL 0 - 200 06/19 Specimen Type: PLASMA No comment entered. Ordering Provider: CHAD BOOGIE Report Released Date/Time : June 16, 2024 01:20 PM Reporting Lab: [place] [facility] [address] [place] [address] Performin g Lab: [place] [facility] [address] [place] [address] [facility] CHOLESTEROL PANEL (PB) TRIGLYCERIDE [MASS/VOLUME] IN SERUM OR PLASMA 118 mg/dL 0 - 150 06/19 Specimen Type: PLASMA No comment entered. Ordering Provider: CHAD BOOGIE Report Released Date/Time : June 16, 2024 01:20 PM Reporting Lab: [place] [facility] [address] [place] [address] Performin g Lab: [place] [facility] [address] [place] [address] [facility] CHOLESTEROL PANEL (PB) CHOLESTEROL IN LDL [MASS/VOLUME] IN SERUM OR PLASMA BY CALCULATION 79.4 mg/dL 06/19 Specimen Type: PLASMA No comment entered. Ordering Provider: CHAD BOOGIE Report Released Date/Time : June 16, 2024 01:20 PM Reporting Lab: [place] [facility] [address] [place] [address] Performin g Lab: [place] [facility] [address] [place] [address] [facility] CHOLESTEROL PANEL (PB) CHOLESTEROL IN HDL [MASS/VOLUME] IN SERUM OR PLASMA 34.0 mg/dL 40 06/19 L Specimen Type: PLASMA No comment entered. Ordering Provider: CHAD BOOGIE Report Released Date/Time : June 16, 2024 01:20 PM Reporting Lab: [place] [facility] [address] [place] [address] Performin g Lab: [place] [facility] [address] [place] [address] [facility] CHOLESTEROL PANEL (PB) CHOLESTEROL IN HDL/CHOLESTER OL.TOTAL [MASS RATIO] IN SERUM OR PLASMA 24.8 25 06/19 Specimen Type: PLASMA No comment entered. Ordering Provider: CHAD BOOGIE Report Released Date/Time : June 16, 2024 01:20 PM Reporting Lab: [place] [facility] [address] [place] [address] Performin g Lab: [place] [facility] [address] [place] [address] [facility] MAGNESIUM MAGNESIUM [MASS/VOLUME] IN SERUM OR PLASMA 2.22 mg/dL 1.6 - 2.6 06/19 Specimen Type: PLASMA No comment entered. Ordering Provider: CHAD BOOGIE Report Released Date/Time : June 16, 2024 01:20 PM Reporting Lab: [place] [facility] [address] [place] [address] Performin g Lab: [place] [facility] [address] [place] [address] [facility] HGA1C HEMOGLOBIN A1C/HEMOGLOBI N.TOTAL IN BLOOD 6.2 4.0 - 6.0 06/19 H Specimen Type: BLOOD No comment entered. Ordering Provider: CHAD BOOGIE Report Released Date/Time : June 16, 2024 01:20 PM Reporting Lab: [place] [facility] [address] [place] [address] Performin g Lab: [place] [facility] [address] [place] [address] [facility] FOLATE (PB) FOLATE [MASS/VOLUME] IN SERUM OR PLASMA 18.7 ng/mL 7 - 06/19 Specimen Type: SERUM No comment entered. Ordering Provider: CHAD BOOGIE Report Released Date/Time : June 16, 2024 01:20 PM Reporting Lab: [place] [facility] [address] [place] [address] Performin g Lab: [place] [facility] [address] [place] [address] [facility] COMPREHENSI VE METABOLIC PANEL CREATININE [MASS/VOLUME] IN SERUM OR PLASMA 1.05 mg/dL 0.7 - 1.3 06/19 Specimen Type: PLASMA No comment entered. Ordering Provider: CHAD BOOGIE Report Released Date/Time : June 16, 2024 01:20 PM Reporting Lab: [place] [facility] [address] [place] [address] Performin g Lab: [place] [facility] [address] [place] [address] [facility] COMPREHENSI VE METABOLIC PANEL UREA NITROGEN [MASS/VOLUME] IN SERUM OR PLASMA 12 mg/dL 9 - 06/19 Specimen Type: PLASMA No comment entered. Ordering Provider: CHAD BOOGIE Report Released Date/Time : June 16, 2024 01:20 PM Reporting Lab: [place] [facility] [address] [place] [address] Performin g Lab: [place] [facility] [address] [place] [address] [place] [facility] COMPREHENSI VE METABOLIC PANEL GLUCOSE [MASS/VOLUME] IN SERUM OR PLASMA 101 mg/dL 72 - 99 06/19 H Specimen Type: PLASMA No comment entered. Ordering Provider: CHAD BOOGIE Report Released Date/Time : June 16, 2024 01:20 PM Reporting Lab: [place] [facility] [address] [place] [address] Performin g Lab: [place] [facility] [address] [place] [address] [facility] COMPREHENSI VE METABOLIC PANEL SODIUM [MOLES/VOLUME ] IN SERUM OR PLASMA 142 meq/L 136 - 145 06/19 Specimen Type: PLASMA No comment entered. Ordering Provider: CHAD BOOGIE Report Released Date/Time : June 16, 2024 01:20 PM Reporting Lab: [place] [facility] [address] [place] [address] 8 Performin g Lab: [place] [facility] [address] [place] [address] [facility] COMPREHENSI VE METABOLIC PANEL POTASSIUM [MOLES/VOLUME ] IN SERUM OR PLASMA 4.3 meq/L 3.5 - 5 06/19 Specimen Type: PLASMA No comment entered. Ordering Provider: CHAD BOOGIE Report Released Date/Time : June 16, 2024 01:20 PM Reporting Lab: [place] [facility] [address] [place] [address] Performin g Lab: [place] [facility] [address] [place] [address] [facility] COMPREHENSI VE METABOLIC PANEL CHLORIDE [MOLES/VOLUME ] IN SERUM OR PLASMA 108 meq/L 98 - 107 06/19 H Specimen Type: PLASMA No comment entered. Ordering Provider: CHAD BOOGIE Report Released Date/Time : June 16, 2024 01:20 PM Reporting Lab: [place] [facility] [address] [place] [address] Performin g Lab: [place] [facility] [address] [place] [address] [facility] COMPREHENSI VE METABOLIC PANEL CARBON DIOXIDE, TOTAL [MOLES/VOLUME ] IN SERUM OR PLASMA 23 meq/L 22 - 31 06/19 Specimen Type: PLASMA No comment entered. Ordering Provider: CHAD BOOGIE Report Released Date/Time : June 16, 2024 01:20 PM Reporting Lab: [place] [facility] [address] [place] [address] Performin g Lab: [place] [facility] [address] [place] [address] [facility] COMPREHENSI VE METABOLIC PANEL CALCIUM [MASS/VOLUME] IN SERUM OR PLASMA 9.2 mg/dL 8.4 - 10.4 06/19 Specimen Type: PLASMA No comment entered. Ordering Provider: CHAD BOOGIE Report Released Date/Time : June 16, 2024 01:20 PM Reporting Lab: [place] [facility] [address] [place] [address] Performin g Lab: [place] [facility] [address] [place] [address] [facility] COMPREHENSI VE METABOLIC PANEL PROTEIN [MASS/VOLUME] IN SERUM OR PLASMA 6.4 g/dL 6 - 8.6 06/19 Specimen Type: PLASMA No comment entered. Ordering Provider: CHAD BOOGIE Report Released Date/Time : June 16, 2024 01:20 PM Reporting Lab: [place] [facility] [address] [place] [address] Performin g Lab: [place] [facility] [address] [place] [address] [facility] COMPREHENSI VE METABOLIC PANEL ALBUMIN [MASS/VOLUME] IN SERUM OR PLASMA 4.1 g/dL 3.4 - 5 06/19 Specimen Type: PLASMA No comment entered. Ordering Provider: CHAD BOOGIE Report Released Date/Time : June 16, 2024 01:20 PM Reporting Lab: [place] [facility] [address] [place] [address] Performin g Lab: [place] [facility] [address] [place] [address] [facility] COMPREHENSI VE METABOLIC PANEL BILIRUBIN.TOT AL [MASS/VOLUME] IN SERUM OR PLASMA 0.6 mg/dL 0.2 - 1.2 06/19 Specimen Type: PLASMA No comment entered. Ordering Provider: CHAD BOOGIE Report Released Date/Time : June 16, 2024 01:20 PM Reporting Lab: [place] [facility] [address] [place] [address] Performin g Lab: [place] [facility] [address] [place] [address] [facility] COMPREHENSI VE METABOLIC PANEL ALKALINE PHOSPHATASE [ENZYMATIC ACTIVITY/VOLU ME] IN SERUM OR PLASMA 66 U/L 40 - 150 06/19 Specimen Type: PLASMA No comment entered. Ordering Provider: CHAD BOOGIE Report Released Date/Time : June 16, 2024 01:20 PM Reporting Lab: [place] [facility] [address] [place] [address] Performin g Lab: [place] [facility] [address] [place] [address] [facility] COMPREHENSI VE METABOLIC PANEL ASPARTATE AMINOTRANSFER ASE [ENZYMATIC ACTIVITY/VOLU ME] IN SERUM OR PLASMA 21 U/L 5 - 34 06/19 Specimen Type: PLASMA No comment entered. Ordering Provider: CHAD BOOGIE Report Released Date/Time : June 16, 2024 01:20 PM Reporting Lab: [place] [facility] [address] [place] [address] Performin g Lab: [place] [facility] [address] [place] [address] [facility] COMPREHENSI VE METABOLIC PANEL ALANINE AMINOTRANSFER ASE [ENZYMATIC ACTIVITY/VOLU ME] IN SERUM OR PLASMA 13 U/L 8 - 40 06/19 Specimen Type: PLASMA No comment entered. Ordering Provider: CHAD BOOGIE Report Released Date/Time : June 16, 2024 01:20 PM Reporting Lab: [place] [facility] [address] [place] [address] Performin g Lab: [place] [facility] [address] [place] [address] [facility] COMPREHENSI VE METABOLIC PANEL GLOMERULAR FILTRATION RATE/1.73 SQ M.PREDICTED [VOLUME RATE/AREA] IN SERUM, PLASMA OR BLOOD BY CREATININE-BA SED FORMULA (CKD-EPI 2020) 70 06/19 Specimen Type: PLASMA No comment entered. Ordering Provider: CHAD BOOGIE Report Released Date/Time : June 16, 2024 01:20 PM Reporting Lab: [place] [facility] [address] [place] [address] Performin g Lab: [place] [facility] [address] [place] [address] [facility] CBC LEUKOCYTES [#/VOLUME] IN BLOOD BY AUTOMATED COUNT 4.4 10*3/u L 3.6 - 11.2 06/19 Specimen Type: BLOOD No comment entered. Ordering Provider: CHAD BOOGIE Report Released Date/Time : June 16, 2024 01:20 PM Reporting Lab: [place] [facility] [address] [place] [address] Performin g Lab: [place] [facility] [address] [place] [address] [facility] CBC ERYTHROCYTES [#/VOLUME] IN BLOOD BY AUTOMATED COUNT 4.48 10*6/u L 4.10 - 5.70 06/19 Specimen Type: BLOOD No comment entered. Ordering Provider: CHAD BOOGIE Report Released Date/Time : June 16, 2024 01:20 PM Reporting Lab: [place] [facility] [address] [place] [address] Performin g Lab: [place] [facility] [address] [place] [address] [facility] CBC HEMOGLOBIN [MASS/VOLUME] IN BLOOD 13.9 g/dL 13.1 - 16.8 06/19 Specimen Type: BLOOD No comment entered. Ordering Provider: CHAD BOOGIE Report Released Date/Time : June 16, 2024 01:20 PM Reporting Lab: [place] [facility] [address] [place] [address] Performin g Lab: [place] [facility] [address] [place] [address] [facility] CBC HEMATOCRIT [VOLUME FRACTION] OF BLOOD 43.2 38.2 - 48.4 06/19 Specimen Type: BLOOD No comment entered. Ordering Provider: CHAD BOOGIE Report Released Date/Time : June 16, 2024 01:20 PM Reporting Lab: [place] [facility] [address] [place] [address] Performin g Lab: [place] [facility] [address] [place] [address] [facility] CBC MCV [ENTITIC VOLUME] BY AUTOMATED COUNT 96.4 fL 80.0 - 100.0 06/19 Specimen Type: BLOOD No comment entered. Ordering Provider: CHAD BOOGIE Report Released Date/Time : June 16, 2024 01:20 PM Reporting Lab: [place] [facility] [address] [place] [address] Performin g Lab: [place] [facility] [address] [place] [address] [facility] CBC MCH [ENTITIC MASS] BY AUTOMATED COUNT 31.0 pg 27.0 - 34.0 06/19 Specimen Type: BLOOD No comment entered. Ordering Provider: CHAD BOOGIE Report Released Date/Time : June 16, 2024 01:20 PM Reporting Lab: [place] [facility] [address] [place] [address] Performin g Lab: [place] [facility] [address] [place] [address] [facility] CBC MCHC [MASS/VOLUME] BY AUTOMATED COUNT 32.2 g/dL 33.0 - 36.0 06/19 L Specimen Type: BLOOD No comment entered. Ordering Provider: CHAD BOOGIE Report Released Date/Time : June 16, 2024 01:20 PM Reporting Lab: [place] [facility] [address] [place] [address] Performin g Lab: [place] [facility] [address] [place] [address] [facility] CBC PLATELETS [#/VOLUME] IN BLOOD BY AUTOMATED COUNT 214 10*3/u L 150 - 400 06/19 Specimen Type: BLOOD No comment entered. Ordering Provider: CHAD BOOGIE Report Released Date/Time : June 16, 2024 01:20 PM Reporting Lab: [place] [facility] [address] [place] [address] Performin g Lab: [place] [facility] [address] [place] [address] [facility] CBC PLATELET MEAN VOLUME [ENTITIC VOLUME] IN BLOOD BY AUTOMATED COUNT 10.2 fL 7.5 - 11.2 06/19 Specimen Type: BLOOD No comment entered. Ordering Provider: CHAD BOOGIE Report Released Date/Time : June 16, 2024 01:20 PM Reporting Lab: [place] [facility] [address] [place] [address] 8 Performin g Lab: [place] [facility] [address] [place] [address] [facility] CBC ERYTHROCYTE DISTRIBUTION WIDTH [RATIO] BY AUTOMATED COUNT 13.0 11.8 - 15.1 06/19 Specimen Type: BLOOD No comment entered. Ordering Provider: CHAD BOOGIE Report Released Date/Time : June 16, 2024 01:20 PM Reporting Lab: [place] [facility] [address] [place] [address] Performin g Lab: [place] [facility] [address] [place] [address] [facility] CBC LYMPHOCYTES/1 00 LEUKOCYTES IN BLOOD BY AUTOMATED COUNT 24.4 06/19 Specimen Type: BLOOD No comment entered. Ordering Provider: CHAD BOOGIE Report Released Date/Time : June 16, 2024 01:20 PM Reporting Lab: [place] [facility] [address] [place] [address] Performin g Lab: [place] [facility] [address] [place] [address] [facility] CBC MONOCYTES/100 LEUKOCYTES IN BLOOD BY AUTOMATED COUNT 10.0 06/19 Specimen Type: BLOOD No comment entered. Ordering Provider: CHAD BOOGIE Report Released Date/Time : June 16, 2024 01:20 PM Reporting Lab: [place] [facility] [address] [place] [address] Performin g Lab: [place] [facility] [address] [place] [address] [facility] CBC NEUTROPHILS/1 00 LEUKOCYTES IN BLOOD BY AUTOMATED COUNT 61.9 06/19 Specimen Type: BLOOD No comment entered. Ordering Provider: CHAD BOOGIE Report Released Date/Time : June 16, 2024 01:20 PM Reporting Lab: [place] [facility] [address] [place] [address] Performin g Lab: [place] [facility] [address] [place] [address] [facility] CBC EOSINOPHILS/1 00 LEUKOCYTES IN BLOOD BY AUTOMATED COUNT 3.0 06/19 Specimen Type: BLOOD No comment entered. Ordering Provider: CHAD BOOGIE Report Released Date/Time : June 16, 2024 01:20 PM Reporting Lab: [place] [facility] [address] [place] [address] Performin g Lab: [place] [facility] [address] [place] [address] [facility] CBC BASOPHILS/100 LEUKOCYTES IN BLOOD BY AUTOMATED COUNT 0.5 06/19 Specimen Type: BLOOD No comment entered. Ordering Provider: CHAD BOOGIE Report Released Date/Time : June 16, 2024 01:20 PM Reporting Lab: [place] [facility] [address] [place] [address] Performin g Lab: [place] [facility] [address] [place] [address] [facility] CBC LYMPHOCYTES [#/VOLUME] IN BLOOD BY AUTOMATED COUNT 1.07 10*3/u L 0.77 - 4.50 06/19 Specimen Type: BLOOD No comment entered. Ordering Provider: CHAD BOOGIE Report Released Date/Time : June 16, 2024 01:20 PM Reporting Lab: [place] [facility] [address] [place] [address] Performin g Lab: [place] [facility] [address] [place] [address] [facility] CBC MONOCYTES [#/VOLUME] IN BLOOD BY AUTOMATED COUNT 0.44 10*3/u L 0.19 - 0.8 06/19 Specimen Type: BLOOD No comment entered. Ordering Provider: CHAD BOOGIE Report Released Date/Time : June 16, 2024 01:20 PM Reporting Lab: [place] [facility] [address] [place] [address] Performin g Lab: [place] [facility] [address] [place] [address] [facility] CBC NEUTROPHILS [#/VOLUME] IN BLOOD BY AUTOMATED COUNT 2.72 10*3/u L 2.10 - 8.00 06/19 Specimen Type: BLOOD No comment entered. Ordering Provider: CHAD BOOGIE Report Released Date/Time : June 16, 2024 01:20 PM Reporting Lab: [place] [facility] [address] [place] [address] Performin g Lab: [place] [facility] [address] [place] [address] [facility] CBC EOSINOPHILS [#/VOLUME] IN BLOOD BY AUTOMATED COUNT 0.13 10*3/u L 0.00 - 0.60 06/19 Specimen Type: BLOOD No comment entered. Ordering Provider: CHAD BOOGIE Report Released Date/Time : June 16, 2024 01:20 PM Reporting Lab: [place] [facility] [address] [place] [address] Performin g Lab: [place] [facility] [address] [place] [address] [facility] CBC BASOPHILS [#/VOLUME] IN BLOOD BY AUTOMATED COUNT 0.02 10*3/u L 0.00 - 0.20 06/19 Specimen Type: BLOOD No comment entered. Ordering Provider: CHAD BOOGIE Report Released Date/Time : June 16, 2024 01:20 PM Reporting Lab: [place] [facility] [address] [place] [address] Performin g Lab: [place] [facility] [address] [place] [address] [facility] CBC IMMATURE GRANULOCYTES/ 100 LEUKOCYTES IN BLOOD BY AUTOMATED COUNT 0.2 06/19 Specimen Type: BLOOD No comment entered. Ordering Provider: CHAD BOOGIE Report Released Date/Time : June 16, 2024 01:20 PM Reporting Lab: [place] [facility] [address] [place] [address] Performin g Lab: [place] [facility] [address] [place] [address] [facility] CBC IMMATURE GRANULOCYTES [#/VOLUME] IN BLOOD BY AUTOMATED COUNT 0.01 10*3/u L 0.00 - 0.05 06/19 Specimen Type: BLOOD No comment entered. Ordering Provider: CHAD BOOGIE Report Released Date/Time : June 16, 2024 01:20 PM Reporting Lab: [place] [facility] [address] [place] [address] Performin g Lab: [place] [facility] [address] [place] [address] [facility] VITAMIN D, 25-HYDROXY 25-HYDROXYVIT MCKEON D3 [MASS/VOLUME] IN SERUM OR PLASMA 39.5 ng/mL 30 - 96 05/26 Specimen Type: SERUM No comment entered. Ordering Provider: NATHANIEL JARVIS Report Released Date/Time : May 25, 2023 02:50 PM Reporting Lab: [place] [facility] [address] [place] [address] Performin g Lab: [place] [facility] [address] [place] [address] [place] [facility] Vital Signs Combined list of inpatient and outpatient Vital Signs from Department of Defense and Veterans Affairs, ranging from 12 months to all on record, depending upon the facility. Vital Sign Value Date Comments Source SYSTOLIC BLOOD PRESSURE 116 08/10/2024 10:59:17 [place] DIASTOLIC BLOOD PRESSURE 64 08/10/2024 10:59:17 [place] WEIGHT 153 08/10/2024 10:59:17 [place] [facility] BMI 21 kg/m2 08/10/2024 10:59:17 [place] [facility] TEMPERATURE 98.4 08/10/2024 10:59:17 [place] PULSE 64 08/10/2024 10:59:17 [place] RESPIRATION 18 08/10/2024 10:59:17 [place] SYSTOLIC BLOOD PRESSURE 104 06/19/2024 08:46:45 [place] [facility] DIASTOLIC BLOOD PRESSURE 60 06/19/2024 08:46:45 [facility] PULSE OXIMETRY 95 06/19/2024 08:46:45 [facility] WEIGHT 151.9 06/19/2024 08:46:45 [place] [facility] BMI 21 kg/m2 06/19/2024 08:46:45 [facility] PAIN 0 06/19/2024 08:46:45 [facility] TEMPERATURE 98 06/19/2024 08:46:45 [facility] PULSE 72 06/19/2024 08:46:45 [facility] RESPIRATION 20 06/19/2024 08:46:45 [facility] Encounters Combined list of: 1) Encounters from Department of Veterans Affairs facilities going backup to the last 18 months, not all VA inpatient encounters are included; 2) Encounters from the Department of [facility] facilities going backup to 280 months. Location Location Details Encounter Type Encounter Number Reason For Visit Attending Provider ADM Date DC Date Status Disposition Source [facility] Outpatient Encounter [id number] 04/26 [facility] Outpatient Encounter [id number] 04/28 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 Outpatient Encounter [id number] 05/04 [facility] Outpatient Encounter [id number] 05/10 [facility] Outpatient Encounter [id number] 05/10 [facility] Outpatient Encounter [id number] 05/23 [facility] Outpatient Encounter [id number] 05/24 [facility] Outpatient Encounter [id number] 05/24 [facility] Outpatient Encounter [id number] 05/[facility] EST MOD 30 MIN [id number] Diagnos is: ICD-10- CM I10 Essenti al (primar y) hyperte Johnathon Lofton 05/26 [facility] Outpatient Encounter [id number] 06/14 [facility] Outpatient Encounter [id number] 06/21 [facility] N [facility] Outpatient Encounter [id number] 06/29 [facility] FEE [id number] Diagnos is: ICD-10- CM H90.3 Sensori neural hearing loss, luis enrique BRYNN Sepulveda A 10/21 [facility] HEARING AID REPAIR/MOD IFYING [id number] Diagnos is: ICD-10- CM H90.3 Sensori neural hearing loss, mary kateBRYNN Conner A 10/21 [facility] Outpatient Encounter [id number] 10/31 [facility] Outpatient Encounter [id number] 11/01 [facility] Outpatient Encounter [id number] MICHELLE TREVINO N 11/03 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 Outpatient Encounter [id number] 11/04 [facility] Outpatient Encounter [id number] 11/09 [facility] Outpatient Encounter [id number] 11/24 [facility] Outpatient Encounter [id number] 12/01 [facility] OFF/OP EST JUNE X REQ PHY/QHP [id number] Diagnos is: ICD-10- CM Z23 Encount er for immuniz ation CHESTER POLK 12/01 [facility] Outpatient Encounter [id number] 12/08 [facility] Outpatient Encounter [id number] 02/10 [facility] Outpatient Encounter [id number] 03/14 [facility] Outpatient Encounter [id number] 04/17 [facility] Outpatient Encounter [id number] PERICO AGUILAR 04/18 [facility] Outpatient Encounter [id number] 04/19 [facility] Outpatient Encounter [id number] 04/24 [facility] Outpatient Encounter [id number] 05/08 [facility] Outpatient Encounter [id number] 05/09 [facility] FEE [id number] Diagnos is: ICD-10- CM Z46.1 Encount er for fitting and adjustm ent of hearing aid BRYNN HALL 05/09 [facility] SPECIAL [facility]PPL[facility] PHYS/QHP [id number] Diagnos is: ICD-10- CM Z46.1 Encount er for fitting and adjustm ent of hearing aid BRYNN HALL 05/09 [facility] Outpatient Encounter [id number] 05/29 [facility] Outpatient Encounter [id number] 06/07 [facility] Outpatient Encounter [id number] 06/07 [facility] Outpatient Encounter [id number] 06/13 [facility] Outpatient Encounter [id number] NETO MCKINNEY 06/[facility] En[facility] [id number] NETO MCKINNEY 06/14 [facility] En[facility] [id number] 06/14 [facility] Outpatient Encounter [id number] 06/19 [facility] Outpatient Encounter [id number] 06/19 [facility] FEE [id number] Diagnos is: ICD-10- CM Z00.01 Encount er for general adult medical exam w abnorma l finding s STACY BOOGIE R 06/19 [facility] SYNCH AUDIO-VIDE O EST MOD 30 [id number] Diagnos is: ICD-10- CM Z00.01 Encount er for general adult medical exam w abnorma l finding s STACY BOOGIE 06/19 [facility] IMG RTA DETCJ/MNTR DS STAFF [id number] Diagnos is: ICD-10- CM Z13.5 Encount er for screeni ng for eye and ear disorde rs SAGE JANG 06/19 [facility] [place] [facility] Outpatient Encounter [id number] Diagnos is: ICD-10- CM Z13.5 Encount er for screeni ng for eye and ear disorde rs RENARD GOVEA 06[facility]19 [facility] Out[facility] Encounter [id number] SAGE JANG 06/19 [facility] Outpatient Encounter [id number] 06/26 [facility] Outpatient Encounter [id number] STACY BOOGIE 07/19 [facility] En[facility] [id number] 08/02 [facility] [place] [facility] Outpatient Encounter [id number] 08/07 [place] [facility] OFFICE O/P EST SF 10 MIN [id number] Diagnos is: ICD-10- CM L89.151 Pressur e ulcer of sacral region, stage 1 STACY BOOGIE Johnathon 08/10 [facility] Social History Combined list of available smoking, tobacco, and other social history from Department of Defense and Veterans Affairs facilities. Social History Type Response Date Comment Source Tobacco smoking status [place] VA-TOBACCO USE EVERY DAY CIGARETTES 06/19/2024 [facility] History of tobacco use VA-TOBACCO NEVER USED OTHER TYPE 06/19/2024 [facility] History of tobacco use VA-TOBACCO USE WI 30 MIN OF WAKEUP 05/27/2023 [facility] History of tobacco use VA-TOBACCO USER EVERY DAY 05/27/2022 [facility] History of tobacco use VA-TOBACCO USER EVERY DAY 05/28/2021 [facility] History of tobacco use VA-TOBACCO USER EVERY DAY 05/28/2020 [facility] History of tobacco use VA-TOBACCO NEVER USED 12/02/2017 [facility] History of tobacco use TOBACCO USER OFFERED MEDS 10/19/2017 [facility] History of tobacco use TOBACCO USER OFFERED MEDS 06/07/2017 [facility] History of tobacco use TOBACCO OFFERED STOP SMOKING CLINIC 02/03/2016 [facility] History of tobacco use LIFETIME NON-USER OF TOBACCO 05/29/2014 [facility] History of tobacco use TOBACCO OFFERED PT MEDS (PROVIDER) 05/17/2013 [facility] History of tobacco use TOBACCO OFFERED STOP SMOKING CLINIC 05/16/2012 [facility] History of tobacco use TOBACCO OFFERED PT MEDS (PROVIDER) 06/04/2011 [facility] History of tobacco use TOBACCO OFFERED PT MEDS (PROVIDER) 11/04/2010 [facility] History of tobacco use TOBACCO OFFERED STOP SMOKING CLINIC 05/23/2010 [facility] History of tobacco use TOBACCO OFFERED PT MEDS (PROVIDER) 10/03/2009 [facility] History of tobacco use TOBACCO OFFERED PT MEDS (PROVIDER) 04/11/2009 do not want [facility] History of tobacco use TOBACCO OFFERED PT MEDS (PROVIDER) 09/12/2008 do not want [facility] History of tobacco use TOBACCO OFFERED PT MEDS (PROVIDER) 03/19/2008 patient do not want to quit smoking [facility] History of tobacco use CURRENT TOBACCO USER 01/20/2008 [facility] History of tobacco use TOBACCO OFFERED PT MEDS (PROVIDER) 09/14/2007 refuses [facility] History of tobacco use TOBACCO OFFERED STOP SMOKING CLINIC 06/07/2007 not interested in smoking program [facility] History of tobacco use TOBACCO OFFERED STOP SMOKING CLINIC 02/10/2007 [facility] History of tobacco use CURRENT TOBACCO USER 08/07/2005 [facility] History of tobacco use CURRENT TOBACCO USER 02/10/2005 [facility] History of tobacco use CURRENT NON-TOBACCO USER-HX OF USE 05/01/2004 [facility] History of tobacco use CURRENT NON-TOBACCO USER-HX OF USE 12/24/2003 [facility] History of tobacco use TOB-SMOKES OR USES TOBACCO PRODUCTS 08/02/2001 1 PK DAY [facility] History of tobacco use CURRENT NON-TOBACCO USER-HX OF USE 02/14/2001 [facility] History of tobacco use CURRENT TOBACCO USER 10/06/2000 [facility] History of tobacco use CURRENT TOBACCO USER 08/27/2000 [facility] Advance Directives List of completed, amended, or rescinded Advance Directives on record at Department of Veterans Affairs facilities. An actual copy of the Directive is not included. Date Advance Directive Provider Source 06/28/1996 ADVANCE DIRECTIVE AMARILYS WELSH [facility]
--- NOTE | 2024-10-17 19:53 | XRR_ITS ---
PROCEDURE INFORMATION: Exam: XR Chest Exam date and time: 10/17/2024 7:53 PM Age: 83 years old Clinical indication: Cough and dyspnea; Additional info: Dyspnea/cough TECHNIQUE: Imaging protocol: Radiologic exam of the chest. Views: 1 view. COMPARISON: CR XR chest 1V portable [id number] 04/14/2023 5:13 PM FINDINGS: Lungs: Unremarkable. No consolidation. Pleural spaces: Unremarkable. No pleural effusion. No pneumothorax. Heart/Mediastinum: Unremarkable. No cardiomegaly. Bones/joints: Unremarkable. XR/XR chest 1V portable [id number] IMPRESSION: No acute findings.
--- NOTE | 2024-10-17 20:01 | W.ED.GENADLT ---
HPI - General Adult General: Chief complaint: Airway/Esophagus Foreign Body Stated complaint: something lodged in throat from dinner Time Seen by Provider: 10/17/24 19:52 History of Present Illness: 83-year-old male presents emergency room complaining of inability to swallow. He is previously had esophageal food impactions while he was eating tonight he began to have difficulty with swallowing every time he tries to eat or drink anything it comes right back up he tried drinking some soda it did not help. This began this evening after he was eating dinner. Associated symptoms: Reports vomiting; Deny chest pain, dyspnea or rash Related Data Home Medications ?Medication ?Instructions ?Recorded ?Confirmed aspirin 81 mg tablet,delayed 81 mg PO DAILY 10/07/20 09/14/24 release cholecalciferol (vitamin D3) 25 25 mcg PO DAILY 10/07/20 09/14/24 mcg (1,000 unit) capsule famotidine 20 mg tablet 20 mg PO BID 10/07/20 09/14/24 simvastatin 80 mg tablet 80 mg PO QPM 10/07/20 09/14/24 trazodone 50 mg tablet 25 mg PO BEDTIME 10/07/20 09/14/24 metoprolol tartrate 25 mg tablet 12.5 mg PO BID 03/30/22 09/14/24 naproxen sodium 220 mg capsule 220 mg PO Q12H PRN Pain 09/05/22 09/14/24 (Aleve) Previous Rx's ?Medication ?Instructions ?Recorded pantoprazole 40 mg tablet,delayed 40 mg PO QAM 6 months #180 tabs 06/30/23 release hydrocodone 5 mg-acetaminophen 325 1 tab PO Q8H pain 7 days #21 tabs 05/18/ mg tablet Allergies Allergy/AdvReac Type Severity Reaction Status Date / Time No Known Allergies Allergy Verified 10/17/24 19:50 Review of Systems Const: Denies: fever(s) or chills ENMT: Reports: odynophagia Card: Denies: chest pain Resp: Denies: dyspnea GI: Reports: vomiting and dysphagia; Denies: abdominal pain, hematemesis or coffee ground emesis : Denies: dysuria, urinary frequency or urinary urgency Musc: Denies: neck pain or back pain Skin/Breast: Denies: rash PFSH ED PFSH: Medical History Atherosclerosis of coronary artery Neuropathy Hyperlipidemia Surgical History History of PTCA Social History Smoking and tobacco/nicotine status: current every day tobacco/nicotine user Alcohol intake: former Substance/Drug Use: never Physical Exam Const: COMMON NORMALS: no acute distress GENERAL APPEARANCE: cooperative and comfortable ORIENTATION/CONSCIOUSNESS: Yes awake, Yes oriented to person, Yes oriented to place and Yes oriented to time HENMT: COMMON NORMALS: normocephalic, atraumatic and hearing grossly normal bilaterally HEAD & SCALP: normocephalic and atraumatic Resp: COMMON NORMALS: normal respiratory effort, No retractions, No use of accessory muscles and clear to auscultation bilaterally AUSCULTATION: clear to auscultation bilaterally Cardio: COMMON NORMALS: regular rate, regular rhythm and No murmurs present (Cardio) RATE: regular rate RHYTHM: regular rhythm GI: COMMON NORMALS: Soft to palpation and No hepatosplenomegaly present AUSCULTATION: Yes normoactive bowel sounds PALPATION: Yes Soft to palpation, No Tenderness to palpation present (GI), No Guarding due to palpation present (GI) and Yes No hepatosplenomegaly present Extremity: COMMON NORMALS: normal to inspection, capillary refill normal, no clubbing, cyanosis or edema, no calf tenderness and no pedal edema Neuro: SENSORIUM/ORIENTATION: Yes oriented to person, Yes oriented to place and Yes oriented to time Skin: COMMON NORMALS: no rashes or lesions noted GENERAL SKIN EXAM: no rashes or lesions noted Course Vital Signs: Vital signs: Vital Signs Temperature 97.7 F 10/17/24 19:45 Pulse Rate 72 10/17/24 20:30 Respiratory Rate 18 10/17/24 19:45 Blood Pressure 115/66 10/17/24 20:30 Pulse Oximetry 94 10/17/24 20:30 Oxygen Delivery Me thod Room Air 10/17/24 20:[address] [facility] - General Adult Medical Decision Making Discussed with Dr. Wilson on-call for surgery. He will be coming in to see the patient, taking him to the GI suite to relieve the esophageal impaction.. Patient is not on any anticoagulants other than a daily aspirin. He is stable at this time. Chest x-ray did not show any signs of aspiration although he only had his symptoms started within the last hour. Patient also given glucagon. Medical Records I reviewed the patient's medical records. Lab Data I reviewed the patient's lab results. Radiology Impressions Chest X-Ray 10/17/24 19:53 IMPRESSION: No acute findings. All radiology interpretation(s) finalized by discharge Discharge Plan Discharge Patient Disposition: Placed in Observation Clinical Impression: Esophageal obstruction due to food impaction Coding Level of Care Code ED Steeping Press Tender for Dieter Escobar
[2024-10-17] MEDS: glucagon 1 mg/mL KIT 1 mL IVP (20:34)
--- NOTE | 2024-10-17 20:44 | ANES.PREANE2 ---
Pre-Anesthetic Assessment Height/Weight: Height 1.83 m Weight 68.039 kg Temp Pulse Resp BP Pulse Ox O2 Del Method 97.7 F 72 18 115/66 94 Room Air 10/17/24 19:45 10/17/24 20:30 10/17/24 19:45 10/17/24 20:30 10/17/24 20:30 10/17/24 20:30 Preop Diagnosis: Food bolus Operation Date: 10/17/24 21:00 Proposed Procedures p EGD(Not Applicable) - Cornelius Wilson MD Familial anesthetic complications: None Was Beta Rodney taken within 24 hours: N/A (Unsure) Was Clonidine taken within 24 hours: N/A Last intake: 1800 Social Tobacco and No alcohol 1 pack(s) per day 75 pack years Exam alert, oriented x 3, clear to auscultation bilaterally and regular rate & rhythm Airway Submandibular: within normal limits Cervical ROM: within normal limits Mallampati: Class III Comments: Comments: Edentulous History/ROS No significant history except as noted and No significant complaints Pulmonary Chronic Obstructive Pulmonary Disease and Exertional Dyspnea CV/HEM Arrythmia, Coronary Artery Disease, Hypertension and Myocardial Infarction (Stent placed) CONCLUSIONS Normal left ventricular size and systolic function, EF 57 %. Grade I/IV diastolic dysfunction (abnormal relaxation filling pattern), normal to mildly elevated filling pressures. Minimally thickened aortic and mitral valves. There is no pericardial effusion. There are no intracardiac masses. No similar previous studies are available for comparison None reported Hepatic None reported GI Gastroesophageal Reflux Disease and Peptic Ulcer Disease Food bolus Metabolic Hyperlipidemia Musc/skel Lower Back Pain and Osteoarthritis/DJD Neuropsych Neuropathy Anesthetic Plan ASA status: 3E Anesthesia: Anesthesia Evaluation and General (RSI) Risk of > 500 ml blood loss (7ml/kg in children): No Medications/Allergies Home Medications ?Medication ?Instructions ?Recorded ?Confirmed ?Last Taken ?Type aspirin 81 mg tablet,delayed 81 mg PO DAILY 10/07/20 09/14/24 05/04/24 17:30 History release cholecalciferol (vitamin D3) 25 25 mcg PO DAILY 10/07/20 09/14/24 05/04/24 17:30 History mcg (1,000 unit) capsule famotidine 20 mg tablet 20 mg PO BID 10/07/20 09/14/24 05/04/24 17:30 History simvastatin 80 mg tablet 80 mg PO QPM 10/07/20 09/14/24 05/04/24 17:30 History trazodone 50 mg tablet 25 mg PO BEDTIME 10/07/20 09/14/24 05/04/24 17:30 History metoprolol tartrate 25 mg tablet 12.5 mg PO BID 03/30/22 09/14/24 05/04/24 17:30 History naproxen sodium 220 mg capsule 220 mg PO Q12H PRN Pain 09/05/22 09/14/24 05/02/24 19:00 History ([facility]) pantoprazole 40 mg tablet,delayed 40 mg PO QAM 6 months #180 tabs 06/30/23 09/14/24 05/04/24 17:30 Rx release hydrocodone 5 mg-acetaminophen 325 1 tab PO Q8H pain 7 days #21 tabs 05/18/24 09/14/24 Unknown Rx mg tablet Allergies Allergy/AdvReac Type Severity Reaction Status Date / Time No Known Allergies Allergy Verified 10/17/24 19:50 [facility] Anesthesia Medical History (Updated 10/17/24 @ 20:15 by Jamey Rodríguez DO) Atherosclerosis of coronary artery Neuropathy Hyperlipidemia Surgical History History of PTCA Social History Smoking and tobacco/nicotine status: current every day tobacco/nicotine user Alcohol intake: former Substance/Drug Use: never Data Anesthesia Cardiac Studies: Echocardiogram 02/14/22
--- NOTE | 2024-10-17 20:56 | PM.HP ---
Providers/Chief Complaint Chief Complaint: something lodged in throat from dinner History of Present Illness Meeta Hurst is a 83 year old male who came in with food bolus impaction. Ate sausage. Complaning of dysphagia after treating medically in ER Medications/Allergies Home Medications ?Medication ?Instructions ?Recorded ?Confirmed ?Last Taken ?Type aspirin 81 mg tablet,delayed 81 mg PO DAILY 10/07/20 09/14/24 05/04/24 17:30 History release cholecalciferol (vitamin D3) 25 25 mcg PO DAILY 10/07/20 09/14/24 05/04/24 17:30 History mcg (1,000 unit) capsule famotidine 20 mg tablet 20 mg PO BID 10/07/20 09/14/24 05/04/24 17:30 History simvastatin 80 mg tablet 80 mg PO QPM 10/07/20 09/14/24 05/04/24 17:30 History trazodone 50 mg tablet 25 mg PO BEDTIME 10/07/20 09/14/24 05/04/24 17:30 History metoprolol tartrate 25 mg tablet 12.5 mg PO BID 03/30/22 09/14/24 05/04/24 17:30 History naproxen sodium 220 mg capsule 220 mg PO Q12H PRN Pain 09/05/22 09/14/24 05/02/24 19:00 History (Aleve) pantoprazole 40 mg tablet,delayed 40 mg PO QAM 6 months #180 tabs 06/30/23 09/14/24 05/04/24 17:30 Rx release hydrocodone 5 mg-acetaminophen 325 1 tab PO Q8H pain 7 days #21 tabs 05/18/24 09/14/24 Unknown Rx mg tablet Allergies Allergy/AdvReac Type Severity Reaction Status Date / Time No Known Allergies Allergy Verified 10/17/24 19:50 PFSH Acute PFSH: Medical History (Updated 10/17/24 @ 20:15 by Jamey Rodríguez DO) Atherosclerosis of coronary artery Neuropathy Hyperlipidemia Surgical History History of PTCA Social History Smoking and tobacco/nicotine status: current every day tobacco/nicotine user Alcohol intake: former Substance/Drug Use: never Vitals/I&O/Wt Last Vital Signs Temp 97.7 F 10/17/24 19:45 Pulse 72 10/17/24 20:30 Resp 18 10/17/24 19:45 BP 115/66 10/17/24 20:30 Pulse Ox 94 10/17/24 20:30 O2 Del Method Room Air 10/17/24 20:30 Weight last 48 hrs Weight 150 lb Physical Exam Narrative: rrr unlabored breathing ra abdomen soft, nt, nd A&P Assessment and plan 1. Esophageal obstruction due to food impaction: Plan: 83yo male with food bolus impaction. Discussed risks and benefits and patient agrees to proceed with EGD and food bolus disimpaction. Patient understands he is at risk of aspiration, esophageal perforation, . PDMP PDMP Reviewed: Not Reviewed Attestations Medical Necessity Statement*: food bolus impaction Coding Level of Care Code 82330 Diagnoses Esophageal obstruction due to food impaction T18.128A; [id number].[id number]
--- NOTE | 2024-10-17 21:11 | PM.MISC ---
Miscellaneous Note Note: Cleared for discharge from GI lab
--- NOTE | 2024-10-17 21:26 | PC.NURSE ---
PT FLUID INTAKE PER ANESTHESIA WAS 500ML NS
== END 2024-10-17 21:54 | disposition home or self-care (01) ==
LOC: ER 20:24 → OPS 20:38
PROVIDERS: Emergency Provider Family Medicine; Visit Provider Student in an Organized Health Care Education/Training Program
PROC: 0DJ08ZZ Inspection of Upper Intestinal Tract, Via Natural or Artificial Opening Endoscopic (ICD-10-PCS; principal; 2024-10-17 21:00)
DX: T18.128A Food in esophagus causing other injury, initial encounter (principal); W44.F3XA Food entering into or through a natural orifice, initial encounter; J44.9 Chronic obstructive pulmonary disease, unspecified; I25.10 Atherosclerotic heart disease of native coronary artery without angina pectoris; I10 Essential (primary) hypertension; I25.2 Old myocardial infarction; I49.9 Cardiac arrhythmia, unspecified; K21.9 Gastro-esophageal reflux disease without esophagitis; K27.9 Peptic ulcer, site unspecified, unspecified as acute or chronic, without hemorrhage or perforation; G62.9 Polyneuropathy, unspecified; Z79.82 Long term (current) use of aspirin; E78.5 Hyperlipidemia, unspecified; F17.200 Nicotine dependence, unspecified, uncomplicated
CPT/HCPCS: 43247; 71045; J0330; J1610; J2704

== ENCOUNTER 2024-11-13 11:18 | Emergency (ER) | payer OTHER, SELFPAY ==
[2024-11-13 11:25] VITALS: BP 101/63; PULSE 74; RESP 18; TEMP 36.7; O2SAT 98; BMI 20.3
--- NOTE | 2024-11-13 11:54 | W.ED.WOUNDLC ---
HPI - Wound/Laceration General: Chief Complaint: Wound/Laceration Stated Complaint: right arm cut from fall Time Seen by Provider: 11/13/24 11:50 Source: patient Mode of arrival: ambulatory Limitations: no limitations History of Present Illness: Patient is a pleasant 83-year-old male here for evaluation of a skin tear involving his right forearm that he sustained 2 to 3 days ago after he was attempting to help his out of bed and accidentally scraped it on a laundry hamper. Patient states he did not have any nonstick dressings at home but was able to dress it but states today when he tried to change the dressing the skin ripped off again . He believes his tetanus is up-to-date. Onset (ago): day(s) Extremity Location: Right: forearm Place: home Patient tetanus UTD: Yes Context: accidental Associated symptoms: Reports no associated symptoms; Denies fever(s) Treatments prior to arrival: bandage Related Data Home Medications ?Medication ?Instructions ?Recorded ?Confirmed aspirin 81 mg tablet,delayed 81 mg PO DAILY 10/07/20 09/14/24 release cholecalciferol (vitamin D3) 25 25 mcg PO DAILY 10/07/20 09/14/24 mcg (1,000 unit) capsule famotidine 20 mg tablet 20 mg PO BID 10/07/20 09/14/24 simvastatin 80 mg tablet 80 mg PO QPM 10/07/20 09/14/24 trazodone 50 mg tablet 25 mg PO BEDTIME 10/07/20 09/14/24 metoprolol tartrate 25 mg tablet 12.5 mg PO BID 03/30/22 09/14/24 naproxen sodium 220 mg capsule 220 mg PO Q12H PRN Pain 09/05/22 09/14/24 (Aleve) Previous Rx's ?Medication ?Instructions ?Recorded pantoprazole 40 mg tablet,delayed 40 mg PO QAM 6 months #180 tabs 06/30/23 release hydrocodone 5 mg-acetaminophen 325 1 tab PO Q8H pain 7 days #21 tabs 04/03/25 mg tablet Allergies Allergy/AdvReac Type Severity Reaction Status Date / Time No Known Allergies Allergy Verified 10/17/24 19:50 Review of Systems Const: Denies: fever(s) Musc: Denies: extremity pain or extremity swelling Skin/Breast: Reports: other (skin tear R forearm) Neuro: Denies: numbness in extremities or sensory changes PFSH ED PFSH: Medical History Atherosclerosis of coronary artery Neuropathy Hyperlipidemia Surgical History History of PTCA Social History Smoking and tobacco/nicotine status: current every day tobacco/nicotine user Alcohol intake: former Substance/Drug Use: never Physical Exam Const: COMMON NORMALS: no acute distress, average body habitus, no limitations, healthy appearing, alert and well nourished Extremity: COMMON NORMALS: capillary refill normal GENERAL: Yes normal exam except as noted RIGHT UPPER EXTREMITY: Yes lower arm (minor skin tear dorsal R forearm) Right lower arm: Yes neurovascular exam (normal) OTHER: RN has already cleaned/dressed wound with a non-stick dressing-this was undone just so I could inspect wound and then re-covered Neuro: COMMON NORMALS: moves all extremities, no focal motor deficits and no sensory deficits noted SENSORIUM/ORIENTATION: Yes alert Skin: NARRATIVE SKIN EXAM: skin tear R forearm Course Vital Signs: Vital signs: Vital Signs Temperature 98.0 F 11/13/24 11:25 Pulse Rate 74 11/13/24 11:25 Respiratory Rate 18 11/13/24 11:25 Blood Pressure 101/63 11/13/24 11:25 Pulse Oximetry 98 11/13/24 11:25 Oxygen Delivery Me thod Room Air 11/13/24 11:25 MDM - Wound/Laceration Medical Decision Making Patient here for a minor skin tear involving the dorsum of his right forearm. This will be cleaned and dressed. He will be given some nonstick dressings to go home with for further dressing changes. He can follow-up with primary care in 1 to 2 weeks to monitor healing. Return to ED precautions discussed. Wound care/infection precautions were discussed with patient. Medical Records I reviewed the patient's medical records. No radiology studies performed this visit Discharge Plan Discharge Patient Disposition: Home Clinical Impression: Skin tear of right forearm without complication Qualifiers: Encounter type: initial encounter Qualified Code(s): S51.811A - Laceration without foreign body of right forearm, initial encounter Condition: Stable Prescriptions: No Action famotidine 20 mg tablet 20 mg PO BID aspirin 81 mg tablet,delayed release (DR/EC) 81 mg PO DAILY simvastatin 80 mg tablet 80 mg PO QPM trazodone 50 mg tablet 25 mg PO BEDTIME cholecalciferol (vitamin D3) 25 mcg (1,000 unit) capsule 25 mcg PO DAILY pantoprazole 40 mg tablet,delayed release (DR/EC) 40 mg PO QAM 180 Days Qty: 180 0RF hydrocodone-acetaminophen 5-325 mg tablet 1 tab PO Q8H 7 Days Qty: 21 0RF metoprolol tartrate 25 mg tablet 12.5 mg PO BID naproxen sodium [Aleve] 220 mg Capsule 220 mg PO Q12H PRN (Reason: Pain) Discharge Orders: Discharge ED (Routine); Ordered 11/13/24 Ordered By: Bria Olguin Patient Instructions: Skin Tear (ED), Patient Portal & Mick Instructions Print Language: Wallisian Coding Level of Care Code ED Light Technician for Dieter Escobar
== END 2024-11-13 12:14 | disposition home or self-care (01) ==
PROVIDERS: Emergency Provider Physician Assistant
DX: S51.811A Laceration without foreign body of right forearm, initial encounter (principal); Z79.82 Long term (current) use of aspirin; Z72.0 Tobacco use; E78.5 Hyperlipidemia, unspecified; I25.10 Atherosclerotic heart disease of native coronary artery without angina pectoris; X58.XXXA Exposure to other specified factors, initial encounter
CPT/HCPCS: 99282

== ENCOUNTER → 2025-02-01 09:47 | Outpatient (BNVA) | payer OTHER, SELFPAY | PROVIDERS: Visit Provider Nurse Practitioner Family | DX: I25.10 Atherosclerotic heart disease of native coronary artery without angina pectoris (principal); E78.5 Hyperlipidemia, unspecified; F17.200 Nicotine dependence, unspecified, uncomplicated; I47.20 Ventricular tachycardia, unspecified; I10 Essential (primary) hypertension | CPT/HCPCS: 99214 ==